=== PATIENT | male | born 1970 | race Caucasian/White ===

== ENCOUNTER 2022-09-07 10:29 | Outpatient (CLI) | payer OTHER, SELFPAY ==
--- NOTE | ~2022-09-07 | XR_ITS ---
Right Hand Technique: PA, oblique, and lateral views were obtained. Clinical History: Pain and swelling Findings: No acute fracture or dislocation is seen. Osseous alignment is anatomic. Joint spaces are p reserved. Soft tissues are unremarkable. Impression: Unremarkable right hand. Reviewed, dictated and finalized at location . Impression: Unremarkable right hand.
--- NOTE | ~2022-09-07 | XR_ITS ---
Left Hand Technique: PA, oblique, and lateral views were obtained. Clinical History: Pain and swelling Findings: No acute fracture or dislocation is seen. Osseous alignment is anatomic. Joint spaces are p reserved. Soft tissues are unremarkable. Impression: Unremarkable left hand. Reviewed, dictated and finalized at location . Impression: Unremarkable left hand.
--- NOTE | ~2022-09-07 | XR_ITS ---
Left Shoulder Technique: AP and axillary views were obtained. Clinical History: Pain Findings: No fracture or dislocation is seen. Osseous alignment is anatomic. The glenohumeral and acr omioclavicular joint spaces are preserved. Soft tissues are unremarkable. Impression: Unremarkable left shoulder radiographs. Reviewed, dictated and finalized at [facility]. Impression: Unremarkable left shoulder radiographs.
== END 2022-09-07 10:30 ==
PROVIDERS: PCP Family Medicine; Visit Provider Family Medicine
DX: M25.512 Pain in left shoulder (principal); M79.642 Pain in left hand
CPT/HCPCS: 73030; 73130

== ENCOUNTER 2023-02-17 12:43 | Outpatient (CLI) | payer BC, SELFPAY ==
--- NOTE | ~2023-02-17 | CT_ITS ---
Clinical Indication: Abnormal weight loss CT Scan of the Chest, Abdomen, and Pelvis with Contrast: Technique: Contiguous sections were acquired throughout the chest, abdomen, and pelvis after intraven ous administration of 100 cc of Omnipaque 350. Dose reduction technique was used on this scan by jana gallegosing automated exposure control and iterative reconstruction technique. The dose-length product (DL P) was 824.13 mGy-cm. Findings: There is no evidence of any significant mediastinal, hilar or axillary lymphadenopathy. Small calcifi ed hilar lymph nodes are noted. The mediastinal soft tissues and vascular structures appear normal. There is no evidence of pleural or pericardial effusion. There is a semisolid nodule at the left lung apex (axial image 30-31). Calcified granulomas are noted . The liver, spleen, pancreas, gallbladder, left adrenal gland, and kidneys are within normal limits. T here is chronic calcification within the right adrenal gland. No evidence of aortic aneurysm. No lym phadenopathy. 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 No bowel obstruction or bowel wall thickening evid ent. Urinary bladder is unremarkable. Prostate gland is markedly enlarged. No ascites. 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 No bowel obstruction or bowel wall thickening. Markedly enlarged prostate gland. Small semisolid groundglass nodule the left lung apex. According to Fleischner Society criteria, ramonita mmend one-year follow-up CT. Reviewed, dictated and finalized at [facility]. 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 No bowel obstruction or bowel wall th ickening. Markedly enlarged prostate gland. Small semisolid groundglass nodule the left lung apex. According to Fleischner Society criteria, recommend one-year follow-up CT.
== END 2023-02-17 12:44 ==
PROVIDERS: PCP Family Medicine; Visit Provider Family Medicine
DX: R63.4 Abnormal weight loss (principal); R91.8 Other nonspecific abnormal finding of lung field
CPT/HCPCS: 71260; 74177; Q9967

== ENCOUNTER 2023-04-30 08:00 | Outpatient (CLI) | payer BC, SELFPAY ==
--- NOTE | ~2023-04-30 | MR_ITS ---
EXAMINATION: MR cervical spine wo con DATE: 04/30/2023 08:40 INDICATION: Degeneration of cervical intervertebral disc. Neck pain. TECHNIQUE: Magnetic resonance imaging (MRI) of the cervical spine was performed without intravenous c ontrast. COMPARISON: None FINDINGS: There is 5 degrees levocurvature of cervicothoracic spine. There is mild kyphosis of cervic al spine. Vertebral body heights are normal. There is mildly decreased disc height at C3-C4, moderate ly decreased disc height at C5-C6, and severely decreased disc height at C6-C7. The spinal cord signa l intensity is normal. The following disc levels are specifically discussed: C2-C3: The disc does not extend beyond the endplate margin. There is mild left uncovertebral joint os teoarthritis. There is moderate and severe left facet joint osteoarthritis. There is mild left neural foraminal stenosis. There is no central canal stenosis. C3-C4: The disc does not extend beyond the endplate margin. There is mild bilateral uncovertebral nicolasa nt osteoarthritis. There is moderate right and severe left facet joint osteoarthritis. There is mild right and moderate left neural foraminal stenosis. There is no central canal stenosis. C4-C5: The disc does not extend beyond the endplate margin. There is mild bilateral mild right and se emil left uncovertebral joint osteoarthritis. There is moderate left facet joint osteoarthritis. Ther e is no neural foraminal stenosis. There is no central canal stenosis. C5-C6: The disc is bulging. There is severe bilateral uncovertebral joint osteoarthritis. There is mi ld right facet joint osteoarthritis. There is moderate bilateral neural foraminal stenosis. There is mild central canal stenosis. C6-C7: The disc is bulging. There is severe bilateral uncovertebral joint osteoarthritis. There is se emil right and moderate left facet joint osteoarthritis. There is severe bilateral neural foraminal s tenosis. There is mild central canal stenosis. C7-T1: The disc does not extend beyond the endplate margin. There is no uncovertebral joint osteoarth ritis. There is severe right and mild left facet joint osteoarthritis. There is mild right neural for aminal stenosis. There is no central canal stenosis. IMPRESSION: 1. Severe cervical spondylosis. Reviewed, dictated and finalized at location A. NG INSTRUCTOR
== END 2023-04-30 08:01 | disposition home or self-care (01) ==
LOC: ANHIMG 08:06
PROVIDERS: PCP Family Medicine; Visit Provider Family Medicine
DX: M43.02 Spondylolysis, cervical region (principal)
CPT/HCPCS: 72141

== ENCOUNTER 2023-08-30 17:04 | Emergency (ER) | payer MEDICAID, SELFPAY ==
[2023-08-30 17:11] VITALS: BP 121/67; PULSE 90; RESP 16; TEMP 36.9; O2SAT 98
--- NOTE | 2023-08-30 17:33 | ED.SKABFB ---
HPI - Skin/Abscess/Foreign Bdy General Chief complaint: Skin/Abscess/Foreign Body Stated complaint: Poison [place]ac Time Seen by Provider: 08/30/23 17:26 Source: patient and RN notes reviewed Mode of arrival: ambulatory Limitations: no limitations History of Present Illness HPI narrative: Patient presents today complaining of poison sumac to his bilateral forearms, legs, hands. States the rash on his right upper arm continues to worsen. Symptoms began 3-4 days ago. He tried to treat with Tecnu without relief. Related Data Allergies Allergy/AdvReac Type Severity Reaction Status Date / Time No Known Allergies Allergy Unknown Verified 08/30/23 17:21 Review of Systems Review of Systems: CONSTITUTIONAL: Denies body aches, fever, chills, or sweats. EYES: Denies visual changes, redness, or discharge. ENT: Denies rhinorrhea, congestion, sore throat, or otalgia. CARDIOVASCULAR: Denies chest pain, palpitations, or edema. RESPIRATORY: Denies cough or dyspnea. GASTROINTESTINAL: Denies abdominal pain, nausea, vomiting, or diarrhea. GENITOURINARY: Denies dysuria or hematuria. SKIN: + pruritic rash MUSCULOSKELETAL: Denies back pain, joint pain, or myalgia. NEUROLOGIC: Denies headache, numbness, tingling, or weakness. PSYCH: Denies depression or anxiety. PMFSH Comments At time of signature, I have reviewed and agree with nursing past medical, surgical, social and family history unless otherwise noted. Please see nursing chart for further information. There is no relevant family history pertinent to the presenting complaint Exam Narrative: GENERAL: Well-appearing, well-nourished, and in no acute distress. HEAD: Normocephalic, atraumatic. EYES: EOMI. No redness or drainage. Conjunctivae normal. ENT: Mucous membranes pink and moist. NECK: Normal AROM. CHEST: No respiratory distress. EXTREMITIES: Normal range of motion. No edema. SKIN: Warm, dry. Capillary refill normal. Normal skin turgor. Scattered papular and vesicular rash to the bilateral upper and lower arms bilateral legs. Patient has 1 large scab to the lateral right lower leg without signs of infection. NEURO: No focal deficits. Alert and oriented x3. Gait steady. PSYCH: Normal affect. No signs of depression or anxiety. Course Course Level of Care: Express Care Visit Vital Signs Vital signs: Vital Signs Temperature 98.5 F 08/30/23 17:11 Pulse Rate 90 08/30/23 17:11 Respiratory Rate 16 08/30/23 17:11 Blood Pressure 121/67 08/30/23 17:11 Pulse Oximetry 98 08/30/23 17:11 Oxygen Delivery Room Air 08/30/23 17:11 Temperature 98.5 F 08/30/23 17:11 Pulse Rate 90 08/30/23 17:11 Respiratory Rate 16 08/30/23 17:11 Blood Pressure 121/67 08/30/23 17:11 Pulse Oximetry 98 08/30/23 17:11 Oxygen Delivery Room Air 08/30/23 17:11 Reviewed MDM - Skin/Abscess/Foreign Bdy MDM Narrative Medical decision making narrative: Rash is consistent with contact dermatitis. Will treat with course of prednisone. Anticipatory guidance given. Differential Diagnosis Differential diagnosis: Likely abscess of skin or subcutaneous tissue, dermatophytosis, cellulitis, eczema, insect bites, impetigo and contact dermatitis Critical Care Time Critical Care Time Critical Care Time: No Discharge Plan Discharge Clinical Impression: Contact dermatitis Qualifiers: Contact dermatitis type: irritant Contact dermatitis trigger: unspecified trigger Qualified Code(s): L24.9 - Irritant contact dermatitis, unspecified cause Patient Disposition: Home, Self-Care Condition: Stable Instructions: Poison Ro (ED) Additional Instructions: Please take the prednisone as prescribed. For itching, use an antihistamine such as Zyrtec, Claritin, or Emy. If you notice any redness, pain, swelling, please follow-up with your PCP for further evaluation. Your blood pressure was elevated above 120/80 today at Urgent Care. This puts you above the t
== END 2023-08-30 17:40 | disposition home or self-care (01) ==
PROVIDERS: Emergency Provider Nurse Practitioner; PCP Family Medicine
DX: L24.9 Irritant contact dermatitis, unspecified cause (principal)
CPT/HCPCS: 99213; G0463

== ENCOUNTER 2024-03-09 10:59 | Outpatient (CLI) | payer OTHER, SELFPAY ==
--- NOTE | ~2024-03-09 | US_ITS ---
EXAMINATION: US soft tissue UE LT DATE: 03/09/2024 12:28 INDICATION: Left forearm lump. TECHNIQUE: Multiple grayscale and Doppler ultrasound images of the left forearm were obtained. COMPARISON: None FINDINGS: There is a 1.2 x 0.3 x 1.0 cm hyperechoic and isoechoic subcutaneous mass in the patient's area of concern in left forearm. IMPRESSION: 1. Small subcutaneous mass in the left forearm, which may be inflammation or a sebaceous cyst. Reviewed, dictated and finalized at location A. IGN STUDENT ADVISER TEACHER
--- NOTE | ~2024-03-09 | MR_ITS ---
EXAMINATION: MR cervical spine wo con DATE: 03/09/2024 13:05 INDICATION: Spinal stenosis in cervical region. TECHNIQUE: Magnetic resonance imaging (MRI) of the cervical spine was performed without intravenous c ontrast. COMPARISON: Cervical spine MRI 04/30/2023 FINDINGS: There is 11 degrees levoscoliosis of cervicothoracic spine. There is kyphosis of cervical s pine. Vertebral body heights are normal. There is mildly decreased disc height at C2-C3 and C3-C4, mo derately decreased disc height at C5-C6, and severely decreased disc height at C6-C7. The spinal cord signal intensity is normal. The following disc levels are specifically discussed: C2-C3: The disc does not extend beyond the endplate margin. There is mild left uncovertebral joint os teoarthritis. There is mild bilateral facet joint osteoarthritis. There is mild left neural foraminal stenosis. There is no central canal stenosis. C3-C4: The disc is bulging. There is moderate bilateral uncovertebral joint osteoarthritis. There is moderate right and severe left facet joint osteoarthritis. There is mild bilateral neural foraminal s tenosis. There is mild central canal stenosis. C4-C5: The disc does not extend beyond the endplate margin. There is mild left uncovertebral joint os teoarthritis. There is mild right and severe left facet joint osteoarthritis. There is moderate left neural foraminal stenosis. There is no central canal stenosis. C5-C6: The disc is bulging. There is severe bilateral uncovertebral joint osteoarthritis. There is mo derate right and mild left facet joint osteoarthritis. There is mild bilateral neural foraminal steno sis. There is mild central canal stenosis. C6-C7: The disc is bulging. There is severe bilateral uncovertebral joint osteoarthritis. There is se emil right and mild left facet joint osteoarthritis. There is moderate bilateral neural foraminal heather nosis. There is mild central canal stenosis. C7-T1: The disc does not extend beyond the endplate margin. There is no uncovertebral joint osteoarth ritis. There is severe right facet joint osteoarthritis. There is mild right neural foraminal stenosi s. There is no central canal stenosis. IMPRESSION: 1. Severe cervical spondylosis, stable from 04/30/2023. Reviewed, dictated and finalized at location A. B MANAGER
--- OUTSIDE RECORDS SUMMARY | 2024-03-16 15:20 | XMS_ITS | Clinical Summary ---
Author Organization [facility] [address] [place] [address] Care Team Providers Care Housefellow Name Role Phone Helga Brewster APRN-TRIM MECHANIC Primary Care Provider Source Comments [facility] [address],non-owned Affiliates and Associated Physician Practices is amultiple site organization consisting of ambulatory clinics and hospital sitesin [place], [place], [place] and [place]. This disclosure is being madepursuant to the Care Everywhere program and may not contain all information available regarding this patient. Last updated 17.[facility] [address] Allergies No known active allergies Medications * Be aware that medications may not be up to date on this document. Alwaysverify current medications with the patient. Medication Sig Dispensed Refills Start Date End Date Status pantoprazole EC (PROTONIX) 40 MG tablet Take 1 (one) tablet by mouth once daily 30 tablet 11/28/2020 Active cyclobenzaprine (FLEXERIL) 10 MG tablet Take 1 (one) tablet by mouth 3 times daily as needed for Muscle Spasms (pain) 90 tablet 12/30/2020 Active lidocaine (Lidoderm) 5 % patch Apply 1 (one) patch to skin once daily 15 patch 5 01/18/2022 Active acetaminophen (Tylenol) 500 MG tablet Take 2 (two) tablets by mouth every 8 hours as needed for Pain Maximum allowable Acetaminophen amount = 4 Grams (4000 mg) / 24 hours. 30 tablet 01/18/2022 Active gabapentin (Neurontin) 100 MG capsule Take 1 (one) capsule by mouth 3 times daily 30 capsule 5 01/18/2022 Active baclofen (Lioresal) 10 MG tablet Take 1 (one) tablet by mouth 3 times daily May cause drowsiness. 15 tablet 01/18/2022 Active HYDROcodone-aceta minophen (Van) 5-325 MG tablet Take 1 tablet every day by oral route at bedtime. 11/02/2023 Active penicillin v potassium (Veetids) 500 MG tablet Take 1 tablet every 6 hours by oral route for 10 days. 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 Encounters Date Type Department Care Team Description 02/08/2024 1:41 PM [facility] - 02/08/2024 11:59 PM [facility] Hospital Encounter [facility] EEG/EMG [address] [place] [address] Sergio Park MD Huser, Madison Cisneros, Discharge Disposition: Home or Self Care from Last 3 Months Social History Tobacco Use Types Packs/Day Years Used Date Smoking Tobacco: Every Day Cigarettes 1 20 Smokeless Tobacco: Never Tobacco Cessation:Ready to Q uit: Not Asked; Counseling Given: Not Answered Alcohol Use Standard Drinks/Week Comments Never 0 (1 standard drink = 0.6 oz pur e alcohol) Sex and Gender Information Value Date Recorded Sex Assigned at Not on file Gender Identity Not on file Sexual Orientation Not on file Last Filed Vital Signs Vital Sign Reading Time Taken Comments Blood Pressure 136/82 01/18/2022 12:15 PM CDT Pulse 81 01/18/2022 12:15 PM CDT Temperature 36.7 ??C (98.1 ??F) 01/18/2022 12:15 PM C DT Respiratory Rate 12 01/18/2022 12:15 PM CDT Oxygen Saturation 100% 01/18/2022 12:15 PM CDT Inhaled Oxygen Concentration - - Weight 80.7 kg (178 lb) 11/06/2023 9:01 AM CDT Height 182.9 cm (6') 11/06/2023 9:01 AM CDT Body Mass Index 24.14 11/06/2023 9:01 AM CDT Plan of Treatment Health Maintenance Due Date Last Done Comments COLOGUARD (AGES 45-75) - COL ON CA SCREENING 1972 COLON MONITORING 1972 COLONOSCOPY - COLON CA SCREENING 1972 CT COLONOGRAPHY - COLON CA SCREENING 1972 Colorectal Cancer Screening 1972 FIT - COLON CA SCREENING 1972 FLEX SIG - COLON CA SCREENING 1972 PNEUMOCOCCAL VACCINE (1 of 2 - PCV) 02/03/1978 HIV SCREENING 02/03/1987 HEPATITIS C SCREENING 01/30/1990 DTAP/TDAP/TD VACCINES (1 - Tdap) 02/03/1991 HEPATITIS B VACCINE (1 of 3 - 19+ 3-dose series) 02/03/1991 LUNG CANCER SCREENING 02/03/2022 ZOSTER VACCINE (1 of 2) 02/03/2022 LIPID TESTING 04/19/2022 04/19/2017 DEPRESSION SCREENING 03/20/2023 COVID-19 VACCINE (1 - 2023-2 5 season) 2023 INFLUENZA VACCINE (#1) 2023 HIB VACCINE Aged Out No longer eligi ble based on patient's age to complete this topic HPV VACCINE Aged Out No longer eligi ble based on patient's age to complete this topic MENINGOCOCCAL VACCINE Aged Out No jurgen parker eligible based on patient's age to complete this topic Goals Goal Patient Goal Type Associated Problems Recent Progress Patient-Stated? Author Medication Management General On track( 021 8:26 AM CDT) No Kristin Cedeno, RN Note: Expected end date: ongoing Interventions: Take all medications as prescribed Let your doctor know right away about any changes in your medications Make sure to request a refill of your medication at least one week prior to your last dose Procedures Procedure Name Priority Date/Time Associated Diagnosis Comments LIPID PROFILE Routine 04/19/2017 7:54 AM [facility] from Last 3 Months or Most Recently Relevant to Health Maintenance Results * (ABNORMAL) LIPID PROFILE (04/19/2017 7:54 AM [facility]) Cholesterol Total 167 <200 mg/dL [facility] HDL 32(L) >40 mg/dL [facility] Comment: ATP III Classification of HDL Cholesterol: ? <40 mg/dL: ??Considered a major risk factor. ? >60 mg/dL: ??Considered a negative risk factor. ? LDL Calculated 102(H) <100 mg/dL [facility] Comment: ATP III Classification of LDL Cholesterol: ?<100 mg/dL: ??Optimal ? 100 - 129 mg/dL: ??Near Optimal/Above Optimal ? 130 - 159 mg/dL: ??Borderline High ? 160 - 189 mg/dL: ??High ?>190 mg/dL: ??Very High ? Triglycerides 166(H) <150 mg/dL [facility] Comment: ATP III Classification of Triglycerides: ?<150 mg/dL: ??Normal ? 150 - 199 mg/dL: ??Borderline High ? 200 - 400 mg/dL: ??High ?>500 mg/dL: ??Very High Blood specimen (specimen) BLOOD SPECIMEN / Unknown 04/19/2017 7:54 AM [facility] 04/19/2017 8:00 AM [facility] Elise Hennessy MD LAB - CHEMISTRY [place] Performing Organization Address City/State/[facility] Co de Phone Number [facility] [address] [phone] from Last 3 Months or Most Recently Relevant to Health Maintenance Advance Directives * Full Code (Latest Code Status on File) Date Activated Date Inactivated Comments 11/27/2020 1:33 AM 11/29/2020 12:56 PM Care Teams Housefellow Relationship Specialty Start Date End Date Helga Brewster, STEAM LOCOMOTIVE FIRER/FIREMAN-TRIM MECHANIC [address] [place] [id number] PCP - General Family Medicine 11/06/23
--- OUTSIDE RECORDS SUMMARY | 2024-03-16 15:20 | XMS_ITS | Patient Health Summary ---
Author Organization [facility] Address [address] [place] [address] Care Team Providers Care Prompt Care Rn Name Role Phone Helga Brewster APRN-PROCEDURES ANALYST Primary Care Provider Note from [facility],non-owned Affiliates and Associated Physician Practices is amultiple site organization consisting of ambulatory clinics and hospital sitesin [place], [place], [place] and [place]. This disclosure is being madepursuant to the Care Everywhere program and may not contain all information available regarding this patient. Last updated 17.[facility] Allergies No known active allergies Medications * Be aware that medications may not be up to date on this document. Alwaysverify current medications with the patient. * pantoprazole EC (PROTONIX) 40 MG tablet(Started 11/28/2020) Take 1 (one) tablet by mouth once daily * cyclobenzaprine (FLEXERIL) 10 MG tablet(Started 12/30/2020) Take 1 (one) tablet by mouth 3 times daily as needed for Muscle Spasms (pain) * lidocaine (Lidoderm) 5 % patch(Started 01/18/2022) Apply 1 (one) patch to skin once daily 5 refills by 01/18/2023 * acetaminophen (Tylenol) 500 MG tablet(Started 01/18/2022) Take 2 (two) tablets by mouth every 8 hours as needed for Pain Maximum allowable Acetaminophen amount = 4 Grams (4000 mg) / 24 hours. * gabapentin (Neurontin) 100 MG capsule(Started 01/18/2022) Take 1 (one) capsule by mouth 3 times daily 5 refills by 01/18/2023 * baclofen (Lioresal) 10 MG tablet(Started 01/18/2022) Take 1 (one) tablet by mouth 3 times daily May cause drowsiness. * HYDROcodone-acetaminophen (Challis) 5-325 MG tablet(Started 11/02/2023) Take 1 tablet every day by oral route at bedtime. * penicillin v potassium (Veetids) 500 MG tablet(Started 11/02/2023) Take 1 tablet every 6 hours by oral route for 10 days. 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 Social History Tobacco Use Types Packs/Day Years [...] Mass Index 24.14 11/06/2023 9:01 AM CDT Procedures * XR SPINE ENTIRE 2 OR 3VW(Performed 11/06/2023) Performed for Other back pain, unspecified chronicity * CT CERVICAL SPINE WO CONTRAST(Performed 01/18/2022) Performed for Neck pain * CT HEAD WO CONTRAST(Performed 01/18/2022) Performed for Neck pain * PHOSPHORUS BLOOD(Performed 11/29/2020) * MAGNESIUM BLOOD(Performed 11/29/2020) * BASIC METABOLIC PANEL (CALCIUM TOTAL)(Performed 11/29/2020) * CBC W AUTO DIFFERENTIAL(Performed 11/29/2020) * CREATININE URINE RANDOM(Performed 11/28/2020) * POTASSIUM URINE RANDOM(Performed 11/28/2020) * CREATINE URINE(Performed 11/28/2020) * SODIUM URINE RANDOM(Performed 11/28/2020) * CARDIAC EKG ORDER(Performed 11/28/2020) * BASIC METABOLIC PANEL (CALCIUM TOTAL)(Performed 11/28/2020) * PHOSPHORUS BLOOD(Performed 11/28/2020) * MAGNESIUM BLOOD(Performed 11/28/2020) * BASIC METABOLIC PANEL (CALCIUM TOTAL)(Performed 11/28/2020) * CBC W AUTO DIFFERENTIAL(Performed 11/28/2020) * HELICOBACTER PYLORI ANTIGEN FECES(Performed 11/27/2020) * FL SMALL BOWEL SERIES(Performed 11/27/2020) Performed for LUQ pain * LACTIC ACID BLOOD(Performed 11/27/2020) * PHOSPHORUS BLOOD(Performed 11/27/2020) * MAGNESIUM BLOOD(Performed 11/27/2020) * BASIC METABOLIC PANEL (CALCIUM TOTAL)(Performed 11/27/2020) * CBC W AUTO DIFFERENTIAL(Performed 11/27/2020) * SARS-COV-2 (COVID-19)+INFLU A+B PCR RAPID(Performed 11/27/2020) * CT ABDOMEN PELVIS W CONTRAST(Performed 11/26/2020) Performed for LUQ pain * EKG 12-LEAD(Performed 11/26/2020) Performed for LUQ pain * TROPONIN I(Performed 11/26/2020) * LACTIC ACID BLOOD(Performed 11/26/2020) * URINALYSIS W/MICROSCOPIC NO CULTURE(Performed 11/26/2020) * LIPASE BLOOD(Performed 11/26/2020) * COMPREHENSIVE METABOLIC PANEL(Performed 11/26/2020) * CBC W AUTO DIFFERENTIAL(Performed 11/26/2020) * HEMOGLOBIN A1C(Performed 04/19/2017) * TROPONIN I(Performed 04/19/2017) * LIPID PROFILE(Performed 04/19/2017) * COMPREHENSIVE METABOLIC PANEL(Performed 04/19/2017) * PT-INR [facility](Performed 04/19/2017) * PTT [facility](Performed 04/19/2017) * TROPONIN I(Performed 04/19/2017) * CT ANGIO CHEST PULM EMBOLISM(Performed 04/19/2017) * XR CHEST 1VW PORTABLE(Performed 04/19/2017) * CBC W AUTO DIFFERENTIAL(Performed 04/19/2017) * TROPONIN I(Performed 04/19/2017) * BASIC METABOLIC PANEL (CALCIUM TOTAL)(Performed 04/19/2017) * CBC W AUTO DIFFERENTIAL(Performed 04/19/2017) * ECHO STRESS COLOR FLOW AND DOPPLER(Performed 04/19/2017) * ECHO STRESS W EXERCISE(Performed 04/19/2017) * EKG 12-LEAD(Performed 04/19/2017) * EKG 12-LEAD(Performed 04/19/2017) * EKG 12-LEAD(Performed 04/19/2017) * LAB MICROBIOLOGY - HPF HISTORICAL(Performed 11/09/2008) * LAB MICROBIOLOGY - HPF HISTORICAL(Performed 11/08/2008) Results * XR Spine Entire 2 or 3Vw (11/06/2023 8:58 AM CDT) Anatomical Region Laterality Modality Spine Radiographic Elisha ging 11/06/2023 11:3 5 AM CDT Narrative 11/06/2023 11:35 AM CDT PROCEDURE: ??XR SPINE ENTIRE 2 OR 3VW DATE/TIME OF EXAM: ??11/06/2023 8:59 AM CLINICAL INFORMATION: None relevant/not provided if blank. Indication: M54.89: Other dorsalgia Additional History: COMPARISON: None. TECHNIQUE: AP and lateral standing views of the spine are submitted. Findings/impression: No significant scoliosis is noted. Mild degenerative changes are noted in the lower cervical and lower lumbar spine. The SI joints are intact. No suspicious osseous lesions or fractures are noted. > Interpreting Provider: Shaheen Mensah DO on 11/06/2023 11:35 AM Procedure Note Shaheen Mensah DO - 11/06/2023 PROCEDURE: XR SPINE ENTIRE 2 OR 3VW DATE/TIME OF EXAM: 11/06/2023 8:59 AM CLINICAL INFORMATION: None relevant/not provided if blank. Indication: M54.89: Other dorsalgia Additional History: COMPARISON: None. TECHNIQUE: AP and lateral standing views of the spine are submitted. Findings/impression: No significant scoliosis is noted. Milddegenerative changes are noted in the lower cervical and lower lumbar spine. The SI joints are intact. No suspicious osseous lesions or fractures are noted. > Interpreting Provider: Shaheen Mensah DO on 11/06/2023 11:35 AM Sergio Park MD DIAGNOSTIC IMAGING O RDERABLES * CT CERVICAL SPINE NON CONTRAST - suspected c-spine fracture (01/18/2022 2:13 PM CDT) Anatomical Region Laterality Modality Spine Computed Tomogra phy 01/18/2022 2:21 PM CDT Impressions 01/18/2022 3:50 PM CDT IMPRESSION: 1.No acute intracranial hemorrhage, midline shift, or significant mass effect. 2.No evidence of acute fracture in the cervical spine. Report dictated by Jon Terry MD, MD (campus president). I, Melodie Hernández MD have personally reviewed and interpreted this examination/study. > Interpreting Provider: Melodie Hernández MD on 01/18/2022 3:50 PM Narrative 01/18/2022 3:50 PM CDT PROCEDURE: ??CT HEAD WO CONTRAST, CT CERVICAL SPINE WO CONTRAST, DATE/TIME OF EXAM: ??01/18/2022 2:14 PM, LOCATION ??[facility] INDICATION: M54.2: Neck pain ADDITIONAL CLINICAL INFORMATION: Ordering Provider Reason For Exam: ??PAIN EXAMINATION: 1.Computed tomography (CT) of the head without contrast 2.CT of the cervical spine without contrast TECHNIQUE: CT of the head and cervical spine was performed without contrast according to standard protocol. CT dose reduction technique was used, including Automated Exposure Control. COMPARISON: None. FINDINGS: Head: No acute intra- or extra-axial fluid collections are identified. The ventricles are of normal size, shape, and morphology. The basilar cisterns are patent. No mass effect or midline shift is seen. The calles-white matter differentiation is normal. Periventricular white matter hypoattenuation is indicative of chronic small vessel ischemic disease. There is vascular calcification of the carotid siphons. No acute calvarial fracture is identified. The orbits appear normal. There is mild paranasal sinus disease. The nasal septum is deviated to the left with a septal spur in contact with the left inferior turbinate. The mastoid air cells are grossly clear. No soft tissue abnormality is identified. Cervical spine: There is gentle cervical kyphosis. There is mild levocurvature of the cervicothoracic junction. Vertebral bodies are normal in height without evidence of acute fracture. Other than middle atlantoaxial joint osteoarthritis, the craniocervical junction appears normal. There is mild degenerative disc disease. Mild central canal stenosis is seen at multiple levels due to diffuse disc bulge. There are varying degrees of mild facet osteoarthritis. There are varying degrees of advanced uncovertebral joint osteoarthritis with the same degree of neural foraminal stenosis at these levels. Scattered small cervical lymph nodes are nonspecific and likely reactive. There is paraseptal emphysema in the lung apices. There are scattered dental caries and periapical lucencies. Procedure Note Melodie Hernández MD - 01/18/2022 PROCEDURE: CT HEAD WO CONTRAST, CT CERVICAL SPINE WO CONTRAST,DATE/TIME OF EXAM: 01/18/2022 2:14 PM, LOCATION [facility] INDICATION: M54.2: Neck pain ADDITIONAL CLINICAL INFORMATION: Ordering Provider Reason For Exam: PAIN EXAMINATION: 1.Computed tomography (CT) of the head without contrast 2.CT of the cervical spine without contrast TECHNIQUE: CT of the head and cervical spine was performed withoutcontrast according to standard protocol. CT dose reduction technique was used, including Automated Exposure Control. COMPARISON: None. FINDINGS: Head: No acute intra- or extra-axial fluid collections are identified. The ventricles are of normal size, shape, and morphology. The basilarcisterns are patent. No mass effect or midline shift is seen. The calles-whitematter differentiation is normal. Periventricular white matter hypoattenuationis indicative of chronic small vessel ischemic disease. There is vascular calcification of the carotid siphons. No acute calvarial fracture is identified. The orbits appear normal. There is mild paranasal sinus disease. The nasal septum is deviated to the left with a septal spur in contact with the left inferior turbinate. The mastoid air cells aregrossly clear. No soft tissue abnormality is identified. Cervical spine: There is gentle cervical kyphosis. There is mild levocurvature of the cervicothoracic junction. Vertebral bodies are normal in height without evidence of acute fracture. Other than middle atlantoaxial joint osteoarthritis, the craniocervical junction appears normal. There ismild degenerative disc disease. Mild central canal stenosis is seen atmultiple levels due to diffuse disc bulge. There are varying degrees of mildfacet osteoarthritis. There are varying degrees of advanced uncovertebraljoint osteoarthritis with the same degree of neural foraminal stenosis atthese levels. Scattered small cervical lymph nodes are nonspecific and likely reactive. There is paraseptal emphysema in the lung apices. There are scattered dental caries and periapical lucencies. IMPRESSION: 1.No acute intracranial hemorrhage, midline shift, or significant mass effect. 2.No evidence of acute fracture in the cervical spine. Report dictated by Jon Terry MD, MD (campus president). Melodie Matias MD have personally reviewed and interpretedthis examination/study. > Interpreting Provider: Melodie Hernández MD on 01/18/2022 3:50 PM Efraín Mooney MD CT ORDERABLES * CT HEAD NON CONTRAST - suspected intracranial hemorrhage (01/18/2022 2:13 PM CDT) Anatomical Region Laterality Modality Head Computed Tomogra phy 01/18/2022 2:21 PM CDT Impressions 01/18/2022 3:50 PM CDT IMPRESSION: 1.No acute intracranial hemorrhage, midline shift, or significant mass effect. 2.No evidence of acute fracture in the cervical spine. Report dictated by Jon Terry MD, MD (campus president). Melodie Matias MD have personally reviewed and interpreted this examination/study. > Interpreting Provider: Melodie Hernández MD on 01/18/2022 3:50 PM Narrative 01/18/2022 3:50 PM CDT PROCEDURE: ??CT HEAD WO CONTRAST, CT CERVICAL SPINE WO CONTRAST, DATE/TIME OF EXAM: ??01/18/2022 2:14 PM, LOCATION ??[facility] INDICATION: M54.2: Neck pain ADDITIONAL CLINICAL INFORMATION: Ordering Provider Reason For Exam: ??PAIN EXAMINATION: 1.Computed tomography (CT) of the head without contrast 2.CT of the cervical spine without contrast TECHNIQUE: CT of the head and cervical spine was performed without contrast according to standard protocol. CT dose reduction technique was used, including Automated Exposure Control. COMPARISON: None. FINDINGS: Head: No acute intra- or extra-axial fluid collections are identified. The ventricles are of normal size, shape, and morphology. The basilar cisterns are patent. No mass effect or midline shift is seen. The calles-white matter differentiation is normal. Periventricular white matter hypoattenuation is indicative of chronic small vessel ischemic disease. There is vascular calcification of the carotid siphons. No acute calvarial fracture is identified. The orbits appear normal. There is mild paranasal sinus disease. The nasal septum is deviated to the left with a septal spur in contact with the left inferior turbinate. The mastoid air cells are grossly clear. No soft tissue abnormality is identified. Cervical spine: There is gentle cervical kyphosis. There is mild levocurvature of the cervicothoracic junction. Vertebral bodies are normal in height without evidence of acute fracture. Other than middle atlantoaxial joint osteoarthritis, the craniocervical junction appears normal. There is mild degenerative disc disease. Mild central canal stenosis is seen at multiple levels due to diffuse disc bulge. There are varying degrees of mild facet osteoarthritis. There are varying degrees of advanced uncovertebral joint osteoarthritis with the same degree of neural foraminal stenosis at these levels. Scattered small cervical lymph nodes are nonspecific and likely reactive. There is paraseptal emphysema in the lung apices. There are scattered dental caries and periapical lucencies. Procedure Note Melodie Hernández MD - 01/18/2022 PROCEDURE: CT HEAD WO CONTRAST, CT CERVICAL SPINE WO CONTRAST,DATE/TIME OF EXAM: 01/18/2022 2:14 PM, LOCATION [facility] INDICATION: M54.2: Neck pain ADDITIONAL CLINICAL INFORMATION: Ordering Provider Reason For Exam: PAIN EXAMINATION: 1.Computed tomography (CT) of the head without contrast 2.CT of the cervical spine without contrast TECHNIQUE: CT of the head and cervical spine was performed withoutcontrast according to standard protocol. CT dose reduction technique was used, including Automated Exposure Control. COMPARISON: None. FINDINGS: Head: No acute intra- or extra-axial fluid collections are identified. The ventricles are of normal size, shape, and morphology. The basilarcisterns are patent. No mass effect or midline shift is seen. The calles-whitematter differentiation is normal. Periventricular white matter hypoattenuationis indicative of chronic small vessel ischemic disease. There is vascular calcification of the carotid siphons. No acute calvarial fracture is identified. The orbits appear normal. There is mild paranasal sinus disease. The nasal septum is deviated to the left with a septal spur in contact with the left inferior turbinate. The mastoid air cells aregrossly clear. No soft tissue abnormality is identified. Cervical spine: There is gentle cervical kyphosis. There is mild levocurvature of the cervicothoracic junction. Vertebral bodies are normal in height without evidence of acute fracture. Other than middle atlantoaxial joint osteoarthritis, the craniocervical junction appears normal. There ismild degenerative disc disease. Mild central canal stenosis is seen atmultiple levels due to diffuse disc bulge. There are varying degrees of mildfacet osteoarthritis. There are varying degrees of advanced uncovertebraljoint osteoarthritis with the same degree of neural foraminal stenosis atthese levels. Scattered small cervical lymph nodes are nonspecific and likely reactive. There is paraseptal emphysema in the lung apices. There are scattered dental caries and periapical lucencies. IMPRESSION: 1.No acute intracranial hemorrhage, midline shift, or significant mass effect. 2.No evidence of acute fracture in the cervical spine. Report dictated by Jon Terry MD, MD (campus president). I, Melodie Hernández MD have personally reviewed and interpretedthis examination/study. > Interpreting Provider: Melodie Hernández MD on 01/18/2022 3:50 PM Efraín Mooney MD CT ORDERABLES * (ABNORMAL) CBC W AUTO DIFFERENTIAL (11/29/2020 1:39 AM CDT) Only the most recent of6 resultswithin the time period is included. WBC 7.9 3.5 - 10.5 10? 3 /uL 11/29/2020 3:51 AM [facility] RBC 5.34 4.30 - 5.70 10? 6 /uL 11/29/2020 3:51 AM [facility] Hemoglobin 15.9 12.0 - 17.6 g/dL 11/29/2020 3:51 AM [facility] Hematocrit 47.1 35.2 - 51.7 % 11/29/2020 3:51 AM [facility] MCV 88.2 80.7 - 98.3 fL 11/29/2020 3:51 AM [facility] MCH 29.8 26.7 - 34.0 pg 11/29/2020 3:51 AM [facility] MCHC 33.8 30.8 - 35.9 g/dL 11/29/2020 3:51 AM [facility] Platelet Count 256 150 - 400 10? 3 /uL 11/29/2020 3:51 AM [facility] RDW-SD 39.5 36.0 - 50.0 fL 11/29/2020 3:51 AM [facility] RDW-CV 12.1 11.2 - 14.8 % 11/29/2020 3:51 AM [facility] MPV 8.8(L) 9.4 - 12.9 fL 11/29/2020 3:51 AM [facility] nRBC Absolute 0.00 0 10? 3 /uL 11/29/2020 3:51 AM [facility] nRBC Auto 0.0 0 /100 WBC 11/29/2020 3:51 AM [facility] Neutrophils % 56.3 35.0 - 70.0 % 11/29/2020 3:51 AM [facility] Lymphocytes % 27.7 20.0 - 43.0 % 11/29/2020 3:51 AM [facility] Monocytes % 8.7 5.0 - 13.0 % 11/29/2020 3:51 AM [facility] Eosinophils % 6.1(H) 0.0 - 6.0 % 11/29/2020 3:51 AM [facility] Basophil % 0.8 0.0 - 2.0 % 11/29/2020 3:51 AM [facility] Neutrophils Absolute 4.5 1.6 - 7.0 10? 3 /uL 11/29/2020 3:51 AM [facility] Lymphocyte Absolute 2.2 1.1 - 3.9 10? 3 /uL 11/29/2020 3:51 AM [facility] Monocytes Absolute 0.69 0.26 - 1.07 10? 3 /uL 11/29/2020 3:51 AM [facility] Eosinophils Absolute 0.48(H) 0.00 - 0.47 10? 3 /uL 11/29/2020 3:51 AM [facility] Basophils Absolute 0.06 0.00 - 0.08 10? 3 /uL 11/29/2020 3:51 AM [facility] Immature Granulocytes % 0.4 0.0 - 1.0 % 11/29/2020 3:51 AM [facility] Immature Granulocytes Absolute 0.03 11/29/2020 3:51 AM [facility] Blood BLOOD SPECIMEN / Unknown Lab Venipuncture / Unknown 11/29/2020 1:39 AM CDT 11/29/2020 2:59 AM CDT Suleman Grissom MD LAB - HEMATOLOGY ORD ERABLES [facility] [address] [place] [address], [facility] [phone] * (ABNORMAL) BASIC METABOLIC PANEL (CALCIUM TOTAL) (11/29/2020 1:39 AM CDT) Only the most recent of5 resultswithin the time period is included. BUN 10 7 - 26 mg/dL 11/29/2020 3:26 AM [facility] Creatinine 1.24(H) 0.71 - 1.16 mg/dL 11/29/2020 3:26 AM [facility] Sodium 142 136 - 145 mmol/L 11/29/2020 3:26 AM [facility] Potassium 3.8 3.5 - 4.5 mmol/L 11/29/2020 3:26 AM [facility] Chloride 108(H) 98 - 107 mmol/L 11/29/2020 3:26 AM [facility] CO2 25 22 - 29 mmol/L 11/29/2020 3:26 AM [facility] Glucose 111 70 - 115 mg/dL 11/29/2020 3:26 AM [facility] Calcium 9.0 8.4 - 10.2 mg/dL 11/29/2020 3:26 AM [facility] Anion Gap 13 8 - 18 11/29/2020 3:26 AM [facility] BUN/Creatinine Ratio 8 7 - 23 11/29/2020 3:26 AM [facility] Osmolality Calculated 294 270 - 300 mOsm/kg 11/29/2020 3:26 AM [facility] eGFR by CKD-EPI 68(L) >=90 mL/min/1.7 3 m2 11/29/2020 3:26 AM [facility] Blood BLOOD SPECIMEN / Unknown Lab Venipuncture / Unknown 11/29/2020 1:39 AM CDT 11/29/2020 2:59 AM CDT Suleman Grissom MD LAB - CHEMISTRY ORDHerminio [facility] [address] [address], [place] [phone] * PHOSPHORUS BLOOD (11/29/2020 1:39 AM CDT) Only the most recent of3 resultswithin the time period is included. Phosphorus 3.5 2.8 - 5.1 mg/dL 11/29/2020 3:26 AM [facility] Blood BLOOD SPECIMEN / Unknown Lab Venipuncture / Unknown 11/29/2020 1:39 AM CDT 11/29/2020 2:59 AM CDT Suleman Grissom MD LAB - CHEMISTRY [facility] [address] [address], [place] [phone] * MAGNESIUM BLOOD (11/29/2020 1:39 AM CDT) Only the most recent of3 resultswithin the time period is included. Magnesium 2.3 1.6 - 2.6 mg/dL 11/29/2020 3:26 AM CDT [facility] Blood BLOOD SPECIMEN / Unknown Lab Venipuncture / Unknown 11/29/2020 1:39 AM CDT 11/29/2020 2:59 AM CDT Suleman Grissom MD LAB - CHEMISTRY [facility] Organization Address City/State/ZIP Co de Phone Number [facility] [address] [place] [address], [facility] [phone] * CREATINE URINE (11/28/2020 3:57 PM CDT) Creatine 24 Hour Urine Not Applicable mg/24h 12/08/2020 5:23 PM CDT [facility] ([facility]) Comment: INTERPRETIVE INFORMATION: ??Creatine Urine For random or timed specimens other than 24 hrs, the result represents the total milligrams of creatine excreted during the collection period. Reference ranges for creatine have been established for random urine collections, in mmol/mol creatinine. Access complete set of age- and/or gender-specific reference intervals for this test in the [facility] Laboratory Test Directory ([email or web address]). Performed by [facility], [address] [place] [id number] [email or web address], Mary Engle MD, Lab. Director Collection Time Hours Random hr 12/08/2020 5:23 PM CDT [facility] ([facility]) Volume 24 Hour Urine Random mL 12/08/2020 5:23 PM CDT [facility] ([facility]) Creatinine Urine 1346.2 umol/L 12/09/19 5:23 PM CDT [facility] ([facility]) Creatine Urine 25 10 - 370 mmol/mol [employer] 12/08/2020 5:23 PM CDT [facility] ([facility]) Comment: This test was developed and its performance characteristics determined by [facility]. It has not been cleared or approved by the [place] Food and Drug Administration. This test was performed in a CLIA certified laboratory and is intended for clinical purposes. Urine URINE SPECIMEN OBTAINED BY CLEAN CATCH PROCEDURE / Unknown Collection / Unknown 11/28/2020 3:57 PM CDT 11/28/2020 4:02 PM CDT Suleman Grissom MD LAB - URINE CHEMISTR Y ORDERABLES [facility] ([facility]) [address] [place] [id number] * SODIUM URINE RANDOM (11/28/2020 3:57 PM CDT) Sodium Urine 30 Not Established mmol/L 11/28/2020 4:29 PM CDT [facility] Urine URINE SPECIMEN OBTAINED BY CLEAN CATCH PROCEDURE / Unknown Collection / Unknown 11/28/2020 3:57 PM CDT 11/28/2020 4:02 PM CDT Suleman Grissom MD LAB - URINE CHEMISTR Y ORDERABLES Performing Organization Address [facility]/ZIP Co de Phone Number [address] [address], [facility] [phone] * POTASSIUM URINE RANDOM (11/28/2020 3:57 PM CDT) Potassium Urine 5.5 Not Established mmol/L 11/28/2020 4:29 PM CDT [facility] Urine URINE SPECIMEN OBTAINED BY CLEAN CATCH PROCEDURE / Unknown Collection / Unknown 11/28/2020 3:57 PM CDT 11/28/2020 4:02 PM CDT Suleman Grissom MD LAB - URINE CHEMISTR Y ORDERABLES Performing Organization Address City/[facility]/ZIP Co de Phone Number [address] [address], [facility] [phone] * CREATININE URINE RANDOM (11/28/2020 3:57 PM CDT) Creatinine Urine 18 Not Established mg/dL 11/29/2020 5:40 AM CDT [facility] Urine URINE SPECIMEN OBTAINED BY CLEAN CATCH PROCEDURE / Unknown Collection / Unknown 11/28/2020 3:57 PM CDT 11/28/2020 4:02 PM CDT Suleman Grissom MD LAB - URINE CHEMISTR Y ORDERABLES [facility] [address] [place] [address], [facility] [phone] * CARDIAC EKG ORDER (11/28/2020 2:43 PM CDT) Narrative 11/28/2020 2:43 PM CDT Ordered by an unspecified provider. Scanned Document CARDIAC SERVICES ORD ERABLES * HELICOBACTER PYLORI ANTIGEN FECES (11/27/2020 4:30 PM CDT) Helicobacter pylori Antigen Stool Negative Negative 11/30/2020 1:22 PM CDT Cyrba ([facility]) Comment: Performed By: [employer] [address] [place] [address] Shipyard Laborer: Mary Engle MD Stool STOOL SPECIMEN / Unknown Collection / Unknown 11/27/2020 4:30 PM CDT 11/27/2020 4:34 PM CDT Erick Kuhn MD LAB - MICROBIOLOGY ORDERABLES Performing Organization Address City/[facility] Co de Phone Number [facility]) [address] * [place] SMALL BOWEL SERIES (11/27/2020 3:56 PM CDT) Anatomical Region Laterality Modality Abdomen Radiographic Elisha ging 11/27/2020 3:55 PM CDT Impressions 11/30/2020 1:57 PM CDT IMPRESSION: Modification of the small bowel is reidentified otherwise unremarkable small bowel series. Dictated by Efraín Abreu MD (campus president). I, Dr. YURI GRAVES MD, [facility] have personally reviewed and interpreted this examination/study. This report was electronically signed by YURI GRAVES MD, [facility] ??on 11/30/2020 1:57 PM . Narrative 11/30/2020 1:57 PM CDT EXAMINATION: Small bowel series HISTORY: R10.12: LUQ pain COMPARISON: None. FLUOROSCOPY TIME: 3 seconds PROCEDURE: The patient was given 100 contrast and serial radiographs were obtained at 15 to 30 minute intervals. FINDINGS: Contrast is seen entering the stomach and progressing through the duodenum into the small bowel. There is no evidence of obstruction or extravasation of contrast. No mass lesion, stricture, or ulceration is seen. The terminal ileum appears to be normal. Transit time was 120 minutes. Malrotation noted on exam, seen on previous studies. Sacrum was evaluated and displaced superomedially. Procedure Note Yuri Graves MD - 11/30/2020 EXAMINATION: Small bowel series HISTORY: R10.12: LUQ pain COMPARISON: None. FLUOROSCOPY TIME: 3 seconds PROCEDURE: The patient was given 100 contrast and serial radiographs were obtainedat 15 to 30 minute intervals. FINDINGS: Contrast is seen entering the stomach and progressing through theduodenum into the small bowel. There is no evidence of obstruction orextravasation of contrast. No mass lesion, stricture, or ulceration is seen. The terminal ileum appears to be normal. Transit time was 120 minutes. Malrotation noted on exam, seen on previous studies. Sacrum was evaluated and displaced superomedially. IMPRESSION: Modification of the small bowel is reidentified otherwise unremarkable small bowel series. Dictated by Efraín Abreu MD (campus president). IDr. YURI MD, [facility] have personally reviewedand interpreted this examination/study. This report was electronically signed by YURI GRAVES MD, [facility] on 11/30/2020 1:57 PM . Erick Kuhn MD FLUOROSCOPY ORDERA BLES * LACTIC ACID BLOOD (11/27/2020 3:43 AM CDT) Only the most recent of2 resultswithin the time period is included. [facility] Lactic Acid-Stat 0.8 <=2.0 mmol/L 11/27/2020 4:16 AM CDT [facility] Blood BLOOD SPECIMEN / Unknown Venipuncture / Unknown 11/27/2020 3:43 AM CDT 11/27/2020 3:50 AM CDT Suleman Grissom MD LAB - CHEMISTRY COLTEN GROVES [facility] [address] [place] [address], [facility] [phone] * SARS-COV-2 (COVID-19)+INFLU A+B PCR RAPID (11/27/2020 2:42 AM CDT) [facility] COVID-19 PCR Not detected Not detected 11/28/19 21 3:27 AM CDT [facility] Influenza A Rapid MARLA Not Detected Not Detected 11/27/2020 3:27 AM CDT [facility] Influenza B MARLA Rapid Not Detected Not Detected 11/27/2020 3:27 AM CDT [facility] Microbiology SPECIMEN FROM NASOPHARYNGEAL STRUCTURE / Unknown Collection / Unknown 11/27/2020 2:42 AM CDT 11/27/2020 3:01 AM CDT Narrative [facility] - 11/27/2020 3:27 AM CDT Influenza assay performed by Nucleic Acid Amplification. Results do not exclude the possibility of a mixed viral infection. NOTE: ??Detecting and identifying specific viral nucleic acids from individuals exhibiting signs and symptoms of respiratory infection aids in the diagnosis of respiratory infection, if used in conjunction with other clinical and laboratory findings. The results of this test should not be used as the sole basis for diagnosis, treatment, or patient management decisions. This nucleic acid amplification assay performance was validated by [facility]. This test has been authorized by the Food and Drug administration (FDA)under an Emergency??Use Authorization (EUA). This test has been validated in accordance with the FDA's guidance document Policy for Diagnostic Testing in Laboratories Certified to perform High Complexity Testing under CLIA prior to Emergency Use Authorization for Coronavirus Disease-2019 during the Public Health Emergency issued on May 18, 2019. FDA independent review of this validation is pending. This test is only authorized for the duration of time the declaration that circumstances exist justifying the authorization of emergency use of in vitro diagnostic tests for detection of SARS-CoV-2 virus and/or diagnosis of COVID-19 infection under section 564(b)(1) of the Act, 21 U.S.C 360bbb-3 (b)(1), unless the authorization is terminated or revoked sooner. Fact Sheets for this EUA assay are available upon request. 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 Loops of small bowel in the right abdomen have thickened soto, suggesting enteritis. Report drafted by Duncan Hubbard (resident) Dr. Katie Matias M.D. have personally reviewed and interpreted this examination/study. This report was electronically signed by Katie SOOD M.D. ??on 11/27/2020 1:55 PM . Narrative 11/27/2020 1:55 PM CDT Procedure Information DATE: 11/26/2020 7:52 PM EXAMINATION: Computed tomography (CT) of the abdomen and pelvis with contrast TECHNIQUE: CT of the abdomen and pelvis was performed following the uneventful administration of 100 mL of Isovue 370 intravenous contrast according to standard protocol. Clinical Information HISTORY: R10.12: LUQ pain COMPARISON: CT abdomen pelvis on 05/25/2010 Findings Lower Chest: A large calcified granuloma is present in the right lung base. Hepatobiliary, pancreas and spleen: The liver appears normal. No focal hepatic lesions are visualized. The gallbladder appears normal. There is no intra or extrahepatic bile duct dilatation. The spleen is normal. The pancreas appears normal without evidence of pancreatic ductal dilatation. Kidneys: Tiny hypoattenuating foci likely represent renal cysts. There is no hydronephrosis or renal calculi. Adrenals: Right adrenal calcifications are seen. The left adrenal gland is normal. Retroperitoneum/peritoneum/gastrointestinal: The stomach appears normal. The duodenum does not extend across the midline and remains on the right side of the abdomen representing malrotation. The SMA/SMV relationship is reversed as expected. The colonic loops are on the left side of the abdomen. There is thickening of small bowel loops in the right upper quadrant (image 84, series 3). The large and small bowel otherwise appear normal Appendix: Normal, located in the lower abdominal midline (series 4 image 32). Pelvic Structures: The bladder is normal. The prostate is seen. There is no free pelvic fluid. Vasculature: Minimal atherosclerotic changes of the infrarenal aorta and bilateral iliac arteries is noted. The SMA lies to the right of the SMV, consistent with malrotation. Bones: The visible osseous structures are intact. Soft tissues: Normal. Procedure Note Sarah Sood MD - 11/27/2020 Procedure Information DATE: 11/26/2020 7:52 PM EXAMINATION: Computed tomography (CT) of the abdomen and pelvis with contrast TECHNIQUE: CT of the abdomen and pelvis was performed following the uneventful administration of 100 mL of Isovue 370 intravenous contrast according to standard protocol. Clinical Information HISTORY: R10.12: LUQ pain COMPARISON: CT abdomen pelvis on 05/25/2010 Findings Lower Chest: A large calcified granuloma is present in the right lung base. Hepatobiliary, pancreas and spleen: The liver appears normal. No focal hepatic lesions are visualized. The gallbladder appears normal. There is no intra or extrahepatic bile duct dilatation. The spleen is normal. The pancreas appears normal without evidence of pancreatic ductal dilatation. Kidneys: Tiny hypoattenuating foci likely represent renal cysts. There is no hydronephrosis or renal calculi. Adrenals: Right adrenal calcifications are seen. The left adrenal gland is normal. Retroperitoneum/peritoneum/gastrointestinal: The stomach appears normal. The duodenum does not extend across the midline and remains on the right side of the abdomen representing malrotation. The SMA/SMV relationship is reversed as expected. Thecolonic loops are on the left side of the abdomen. There is thickening of small bowel loops in the right upper quadrant (image 84, series 3). The large and small bowel otherwise appear normal Appendix: Normal, located in the lower abdominal midline (series 4 image 32). Pelvic Structures: The bladder is normal. The prostate is seen. There is no free pelvicfluid. Vasculature: Minimal atherosclerotic changes of the infrarenal aorta and bilateral iliac arteries is noted. The SMA lies to the right of the SMV, consistent with malrotation. Bones: The visible osseous structures are intact. Soft tissues: Normal. 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 Loops of small bowel in the right abdomen have thickened soto, suggesting enteritis. Report drafted by Duncan Hubbard (resident) Dr. Katie Matias M.D. have personally reviewed and interpretedthis examination/study. This report was electronically signed by Katie SOOD M.D. on 11/27/2020 1:55 PM . Deborah Lion MD CT ORDERABLES * EKG 12-LEAD (11/26/2020 5:43 PM CDT) Only the most recent of4 resultswithin the time period is included. Ventricular Rate 72 BPM [facility] Atrial Rate 72 BPM [facility] MUSE P-R Interval 160 ms [facility] QRS Duration ms 86 ms [facility] Q-T Interval ms 360 ms [facility] MUSE QTC Calculation (Bezet) 394 ms [facility] MUSE Calculated P [place] 56 degrees [facility] MUSE Calculated R [place] 78 degrees [facility] Calculated T [place] 28 degrees H MUSE Interpretation EKG NORMAL SINUS RHYTHM WITH SINUS ARRHYTHMIA NORMAL ECG WHEN COMPARED WITH ECG OF 19-APR-2017 05:06, NO SIGNIFICANT CHANGE WAS FOUND Confirmed by Dany Elias ([id number]) on 11/30/2020 7:13:22 AM [facility] MUSE 11/26/2020 5:43 PM CDT 11/30/2020 7:13 AM CDT Deborah Lion MD ECG ORDERABLES [facility] MUSE * TROPONIN I (11/26/2020 5:37 PM CDT) Only the most recent of4 resultswithin the time period is included. Troponin I <0.010 <0.032 ng/mL 11/26/2020 6:12 PM CDT [facility] Blood BLOOD SPECIMEN / Unknown Venipuncture / Unknown 11/26/2020 5:37 PM CDT 11/26/2020 5:44 PM CDT Deborah Lion MD LAB - CHEMISTRY COLTEN GROVES [facility] Organization Address City/State/ZIP Co de Phone Number [facility] [address] [place] [address], [facility] [phone] * URINALYSIS W/MICROSCOPIC NO CULTURE (11/26/2020 4:14 PM CDT) Color UA Yellow Straw, Yellow 11/26/2020 4:34 PM CDT [facility] Clarity UA Clear Clear 11/26/2020 4:34 PM CDT [facility] Specific [place] UA 1.018 1.005 - 1.030 11/26/2020 4:34 PM T [facility] pH UA 5.0 5.0 - 8.0 pH 11/26/2020 4:34 PM T [facility] Protein UA Negative Negative 11/26/2020 4:34 PM T [facility] Glucose UA Negative Negative 11/26/2020 4:34 PM T [facility] Ketone UA Negative Negative 11/26/2020 4:34 PM T [facility] Bilirubin UA Negative Negative 11/26/2020 4:34 PM CDT [facility] Blood UA Negative Negative 11/26/2020 4:34 PM [facility] Nitrite UA Negative Negative 11/26/2020 4:34 PM [facility] Leukocyte Esterase Negative Negative 11/26/2020 4:34 PM T [facility] Urobilinogen UA Negative Negative mg/dL 11/26/2020 4:34 PM T [facility] RBC UA 0-2 None Seen, 0-2, 3-5 /HPF 11/26/2020 4:34 PM [facility] WBC UA 0-5 None Seen, 0-5 /HPF 11/26/2020 4:34 PM [facility] Squamous Epithelial Cells UA None Seen None Seen, 0-2, 3-5 /HPF 11/26/2020 4:34 PM [facility] Urine URINE SPECIMEN OBTAINED BY CLEAN CATCH PROCEDURE / Unknown Collection / Unknown 11/26/2020 4:14 PM CDT 11/26/2020 4:22 PM CDT [facility] - 11/26/2020 4:34 PM CDT Efraín Mooney MD LAB - URINALYSIS ORD ERABLES [facility] [address] [place] [address], [facility] [phone] * (ABNORMAL) COMPREHENSIVE METABOLIC PANEL (11/26/2020 4:11 PM CDT) Only the most recent of2 resultswithin the time period is included. BUN 16 7 - 26 mg/dL 11/26/2020 4:42 PM [facility] Creatinine 1.21(H) 0.71 - 1.16 mg/dL 11/26/2020 4:42 PM [facility] Sodium 140 136 - 145 mmol/L 11/26/2020 4:42 PM [facility] Potassium 4.1 3.5 - 4.5 mmol/L 11/26/2020 4:42 PM [facility] Chloride 108(H) 98 - 107 mmol/L 11/26/2020 4:42 PM [facility] CO2 23 22 - 29 mmol/L 11/26/2020 4:42 PM [facility] Glucose 97 70 - 115 mg/dL 11/26/2020 4:42 PM [facility] Calcium 9.6 8.4 - 10.2 mg/dL 11/26/2020 4:42 PM [facility] Protein Total 7.1 6.0 - 8.3 g/dL 11/26/2020 4:42 PM [facility] Albumin 4.0 3.4 - 5.0 g/dL 11/26/2020 4:42 PM [facility] Bilirubin Total 0.8 0.2 - 1.2 mg/dL 11/26/2020 4:42 PM [facility] Alkaline Phosphatase 89 40 - 150 U/L 11/26/2020 4:42 PM [facility] ALT 34 5 - 55 U/L 11/26/2020 4:42 PM [facility] AST 22 5 - 34 U/L 11/26/2020 4:42 PM [facility] Anion Gap 13 8 - 18 11/26/2020 4:42 PM [facility] BUN/Creatinine Ratio 13 7 - 23 11/26/2020 4:42 PM [facility] Osmolality Calculated 291 270 - 300 mOsm/kg 11/26/2020 4:42 PM [facility] Albumin/Globulin Ratio 1.3 1.1 - 2.3 11/26/2020 4:42 PM [facility] eGFR by CKD-EPI 70(L) >=90 mL/min/1.7 3 m2 11/26/2020 4:42 PM [facility] Blood BLOOD SPECIMEN / Unknown Venipuncture / Unknown 11/26/2020 4:11 PM CDT 11/26/2020 4:19 PM CDT Efraín Mooney MD LAB - CHEMISTRY COLTEN GROVSE [facility] [address] [place] [address], [facility] [phone] * LIPASE BLOOD (11/26/2020 4:11 PM CDT) Lipase 19 8 - 78 U/L 11/26/2020 4:44 PM T [facility] Blood BLOOD SPECIMEN / Unknown Venipuncture / Unknown 11/26/2020 4:11 PM CDT 11/26/2020 4:19 PM CDT Efraín Mooney MD LAB - CHEMISTRY COLTEN GROVES [facility] [address] [place] [address], [facility] [phone] * HEMOGLOBIN A1C (04/19/2017 7:54 AM [employer]) Hemoglobin A1c 5.6 4.4 - 6.3 % [facility] Estimated Average Glucose 114 mg/dL [facility] Comment: HbA1c Interpretation: Treatment target values recommended by ADA and other clinical organizations should be used to evaluate metabolic control in patients. Treatment Target Values: Normal : < 5.7% Pre-diabetes: 5.7-6.4% Diabetes: Equal to or greater than 6.5% Reference: [place] [employer] Standards of Care in Diabetes -2014 In patients 70 years and older consider HbA1c target range of 7.0-7.5% Reference: ??Diabetes Mellitus in Older People: Position Statement on behalf of the International Association of Gerontology and Geriatrics (IAGG), the Diabetes Working [employer] Party for Older People (EDWPOP), and the International Task Force of Experts in Diabetes. ??Dario Mcgowan, et al. J [employer]. 2012 Test results diagnostic of diabetes should be repeated for confirmation. The Tosoh G8 assay for the measurement of HbA1c is a National Glycohemoglobin Standardization Program (NGSP)certified method. Results for patients with HbE disease should be interpreted with caution as this hemoglobinopathy has been shown to interfere with the Tosoh G8 assay. Blood specimen (specimen) BLOOD SPECIMEN / Unknown 04/19/2017 7:54 AM [employer] 04/19/2017 8:00 AM [employer] Elise Hennessy MD LAB - CHEMISTRY COLTEN GROVES [facility] [address] [place] [address], [facility] [phone] * (ABNORMAL) LIPID PROFILE (04/19/2017 7:54 AM [employer]) Cholesterol Total 167 <200 mg/dL [facility] HDL 32(L) >40 mg/dL [facility] Comment: ATP III Classification of HDL Cholesterol: ? <40 mg/dL: ??Considered a major risk factor. ? >60 mg/dL: ??Considered a negative risk factor. ? LDL Calculated 102(H) <100 mg/dL [facility] Comment: ATP III Classification of LDL Cholesterol: ?<100 mg/dL: ??Optimal ? 100 - 129 mg/dL: ??Near Optimal/Above Optimal ? 130 - 159 mg/dL: ??Borderline High ? 160 - 189 mg/dL: ??High ?>190 mg/dL: ??Very High ? Triglycerides 166(H) <150 mg/dL [facility] Comment: ATP III Classification of Triglycerides: ?<150 mg/dL: ??Normal ? 150 - 199 mg/dL: ??Borderline High ? 200 - 400 mg/dL: ??High ?>500 mg/dL: ??Very High Blood specimen (specimen) BLOOD SPECIMEN / Unknown 04/19/2017 7:54 AM [employer] 04/19/2017 8:00 AM [employer] Elise Hennessy MD LAB - CHEMISTRY COLTEN GROVES [facility] Organization Address [facility]/State/[facility] Co de Phone Number [facility] [address] [place] [address] * PTT [facility] (04/19/2017 4:06 AM [employer]) APTT 28.8 23.0 - 38.4 Seconds [facility] Comment:Suggested therapeuti c range for full dose I.V. heparin therapy for venous thromboembolism is 66.0-91.0 seconds. Blood specimen (specimen) BLOOD SPECIMEN / Unknown 04/19/2017 4:06 AM [employer] 04/19/2017 4:10 AM [employer] Narrative [facility] - 04/19/2017 4:22 AM [employer] Please ensure that the aPTT specimen is received in the clinical lab within 1 hour of collection if it is used for therapeutic heparin monitoring. Processing of heparinized specimens older than 1 hour may result in inaccurate test results. Is patient on Heparin, Argatroban or Dabigatran?->N Stas Schulz MD LAB - COAGULATION OR DERABLES Performing Organization Address [facility] de Phone Number [address] [phone] * PT-INR [facility] (04/19/2017 4:06 AM [employer]) PT 13.7 12.1 - 14.8 Seconds [facility] INR 1.1 See Comment [facility] Comment: Suggested therapeutic range for low-intensity coumadin therapy for venous thromboembolism prophylaxis is an INR of 2.0-3.0. ??For high risk patients (Mitral Valve Prosthesis, Atrial Fibrillation, history of TIA/stroke), suggested prophylactic therapeutic range is an INR of 2.5-3.5. Blood specimen (specimen) BLOOD SPECIMEN / Unknown 04/19/2017 4:06 AM [employer] 04/19/2017 4:10 AM [employer] Narrative [facility] - 04/19/2017 4:22 AM [employer] Is patient on Heparin, Argatroban or Dabigatran?->N Stas Schulz MD LAB - COAGULATION OR DERABLES Performing Organization Address [facility] de Phone Number [address] [phone] * CT ANGIO CHEST PULM EMBOLISM (04/19/2017 3:18 AM [employer]) Anatomical Region Laterality Modality Chest Other Impressions 04/19/2017 9:14 AM [employer] IMPRESSION: 1. No CT evidence of pulmonary embolism. 2. No acute process identified in the chest. Dictated by Florentin Oro MD (campus president). I, Dr. JEANNETTE BATISTA M.D. have personally reviewed and interpreted this examination/study. This report was electronically signed by JEANNETTE BATISTA M.D. ??on 04/19/2017 9:14 AM . Narrative 04/19/2017 9:14 AM [employer] EXAMINATION: Computed tomography (CT) of the chest with contrast HISTORY: Chest pain with syncope. TECHNIQUE: CT of the chest was performed following the uneventful administration of 100 mL of Omnipaque 350 intravenous contrast according to a pulmonary embolism protocol. COMPARISON: No prior study is available for comparison. FINDINGS: There are no filling defects in the pulmonary arteries to suggest pulmonary embolism. The main pulmonary artery is normal in course and caliber. There is a left-sided two-vessel aortic arch. The aorta and main pulmonary arteries are normal in course and caliber. The lungs are clear of focal consolidation. No pleural effusion or focal pleural thickening is identified. There is no evidence of pneumothorax. No suspicious pulmonary nodule is identified. A 4 mm nodule along the right minor fissure represents an intrafissural lymph node (series 8 image 45). There is a 1.3 cm calcified granuloma in the right lower lobe. An additional 4 mm calcified nodule is present in the left lower lobe. The trachea is patent and midline. The heart size is normal. No pericardial effusion is present. No mediastinal, hilar, supraclavicular, or axillary lymphadenopathy is seen. Calcified bilateral hilar lymph nodes are indicative of old granulomatous disease. The visible portions of the liver, gallbladder, spleen, pancreas, adrenal glands, kidneys, stomach, and bowel are normal. Calcifications are noted in the right adrenal gland. Bone windows demonstrate no suspicious lytic or blastic lesions. The visible osseous structures are intact. Mild multilevel degenerative changes are noted in the spine. Procedure Note Jeannette Batista MD - 06/21/2017 EXAMINATION: Computed tomography (CT) of the chest with contrast HISTORY: Chest pain with syncope. TECHNIQUE: CT of the chest was performed following the uneventfuladministration of 100 mL of Omnipaque 350 intravenous contrast accordingto a pulmonary embolism protocol. COMPARISON: No prior study is available for comparison. FINDINGS: There are no filling defects in the pulmonary arteries to suggestpulmonary embolism. The main pulmonary artery is normal in course andcaliber. There is a left-sided two-vessel aortic arch. The aorta and mainpulmonary arteries are normal in course and caliber. The lungs are clear of focal consolidation. No pleural effusion or focalpleural thickening is identified. There is no evidence of pneumothorax. Nosuspicious pulmonary nodule is identified. A 4 mm nodule along the rightminor fissure represents an intrafissural lymph node (series 8 image 45). There is a 1.3 cm calcifiedgranuloma in the right lower lobe. An additional 4 mm calcified nodule ispresent in the left lower lobe. The trachea is patent and midline. The heart size is normal. No pericardial effusion is present. Nomediastinal, hilar, supraclavicular, or axillary lymphadenopathy is seen.Calcified bilateral hilar lymph nodes are indicative of old granulomatousdisease. The visible portions of the liver, gallbladder, spleen, pancreas, adrenalglands, kidneys, stomach, and bowel are normal. Calcifications are notedin the right adrenal gland. Bone windows demonstrate no suspicious lytic or blastic lesions. Thevisible osseous structures are intact. Mild multilevel degenerativechanges are noted in the spine. IMPRESSION IMPRESSION: 1. No CT evidence of pulmonary embolism. 2. No acute process identified in the chest. Dictated by Florentin Oro MD (campus president). Dr. JEANNETTE Matias M.D. have personally reviewed and interpreted thisexamination/study. This report was electronically signed by JEANNETTE BATISTA M.D. on 04/19/20179:14 AM . Stas Schulz MD CT ORDERABLES * XR CHEST 1VW PORTABLE (04/19/2017 2:25 AM ELECTRONIC SCALE ASSEMBLER AND TESTER) Anatomical Region Laterality Modality Chest Other Impressions 04/19/2017 11:26 AM ELECTRONIC SCALE ASSEMBLER AND TESTER IMPRESSION: Calcified nodule and calcified granuloma is better characterized on the concurrent same-day CT chest. There is no focal consolidation, pleural effusion, or pneumothorax. The cardiac silhouette is normal. The mediastinal silhouette is normal. The visible bony thorax is intact. Report dictated by Darius Gross M.D. (campus president). Dr. ESTER Matias M.D. have personally reviewed and interpreted this examination/study. This report was electronically signed by ESTER ALONZO M.D. ??on 04/19/2017 11:26 AM . Narrative 04/19/2017 11:26 AM ELECTRONIC SCALE ASSEMBLER AND TESTER EXAMINATION: PX CHEST 1 VW HISTORY: chest pain COMPARISON: No prior study is available for comparison. FINDINGS/ Procedure Note Ester Alonzo MD - 06/21/2017 EXAMINATION: PX CHEST 1 VW HISTORY: chest pain COMPARISON: No prior study is available for comparison. FINDINGS/ IMPRESSION IMPRESSION: Calcified nodule and calcified granuloma is better characterized on theconcurrent same-day CT chest. There is no focal consolidation, pleuraleffusion, or pneumothorax. The cardiac silhouette is normal. Themediastinal silhouette is normal. The visible bony thorax is intact. Report dictated by Darius Gross M.D. (campus president). I, Dr. ESTER ALONZO M.D. have personally reviewed and interpretedthis examination/study. This report was electronically signed by ESTER ALONZO M.D. on04/19/2017 11:26 AM . Stas Schulz MD DIAGNOSTIC IMAGING O RDERABLES * ECHO STRESS TEST W EXERCISE (04/19/2017 12:00 AM ELECTRONIC SCALE ASSEMBLER AND TESTER) Anatomical Region Laterality Modality Other 04/19/2017 Elise Hennessy MD ECHOCARDIOGRAPHY RAD IANT * ECHO STRESS COLOR FLOW AND DOPPLER (04/19/2017 12:00 AM ELECTRONIC SCALE ASSEMBLER AND TESTER) Anatomical Region Laterality Modality Other 04/19/2017 Elise Hennessy MD ECHOCARDIOGRAPHY RAD IANT * LAB MICROBIOLOGY - HPF HISTORICAL (11/09/2008 5:02 AM CDT) Only the most recent of2 resultswithin the time period is included. 11/09/2008 5:02 AM CDT Narrative [facility] - 11/09/2008 5:02 AM CDT Elidia Isaac MD LAB - MICROBIOLOGY O R[facility]NA [facility] Care Teams Prompt Care Rn Relationship Specialty Start Date End Date Helga Brewster, MACHINE DESIGN ENGINEER-[facility] [address] [place] [address] PCP - General Family Medicine 11/06/23
--- OUTSIDE RECORDS SUMMARY | 2024-03-16 15:20 | XMS_ITS | Referral Summary ---
Author Organization [facility] Address [address] [place] [address] Care Team Providers Care Investments Manager Name Role Phone Helga Brewster APRN-MACHINE SHORTHAND TEACHER Primary Care Provider Source Comments [facility],non-owned Affiliates and Associated Physician Practices is amultiple site organization consisting of ambulatory clinics and hospital sitesin [place], [place], [place] and [place]. This disclosure is being madepursuant to the Care Everywhere program and may not contain all information available regarding this patient. Last updated 17.[facility] Encounters Date Type Department Care Team Description 02/08/2024 1:41 PM INFORMATION TECHNOLOGY INTERN - 02/08/2024 11:59 PM [facility] Hospital Encounter [facility] EEG/EMG [address] [place] [address] Sergio Park MD Huser, Sara N, DO Discharge Disposition: Home or Self Care from Last 3 Months Allergies No known active allergies Medications * [...] drowsiness. 15 tablet 01/18/2022 Active HYDROcodone-aceta minophen ([place]) 5-325 MG tablet Take 1 tablet every [...] Mass Index 24.14 11/06/2023 9:01 AM CDT Functional Status Functional Status Response Date of Assess ment Is person deaf or have serious hearing difficult y? No 11/28/2020 Is person blind or have serious difficulty seein g? No 11/28/2020 Does person have serious dif ficulty walking/climbing stairs? No 11/28/2020 Does person have difficulty dressing/bathing? No 11/28/2020 Does person have difficulty doing errands alone? No 11/28/2020 Cognitive Status Response Date of Assessm ent Does person have difficulty concentrating/remembering/making decisions? No 11/28/2020 Plan of Treatment Not on file Goals Goal Patient Goal Type Associated Problems Recent Progress Patient-Stated? Author Medication Management General On track( 021 8:26 AM CDT) No Kristin Cedeno, EMERALD Note: Expected end date: ongoing Interventions: Take all medications as prescribed Let your doctor know right away about any changes in your medications Make sure to request a refill of your medication at least one week prior to your last dose Procedures Procedure Name Priority Date/Time Associated Diagnosis Comments LIPID PROFILE Routine 04/19/2017 7:54 AM INFORMATION TECHNOLOGY INTERN from Last 3 Months or Most Recently Relevant to Health Maintenance Results * (ABNORMAL) LIPID PROFILE (04/19/2017 7:54 AM INFORMATION TECHNOLOGY INTERN) Cholesterol Total 167 <200 mg/dL [facility] HDL 32(L) >40 mg/dL [facility] Comment: ATP III Classification of HDL Cholesterol: ? <40 mg/dL: ??Considered a major risk factor. ? >60 mg/dL: ??Considered a negative risk factor. ? LDL Calculated 102(H) <100 mg/dL [facility] Comment: ATP III Classification of LDL Cholesterol: ?<100 mg/dL: ??Optimal ? 100 - 129 mg/dL: ??Near Optimal/Above Optimal ? 130 - 159 mg/dL: ??Borderline High ? 160 - 189 mg/dL: ??High ?>190 mg/dL: ??Very High ? Triglycerides 166(H) <150 mg/dL [facility] Comment: ATP III Classification of Triglycerides: ?<150 mg/dL: ??Normal ? 150 - 199 mg/dL: ??Borderline High ? 200 - 400 mg/dL: ??High ?>500 mg/dL: ??Very High Blood specimen (specimen) BLOOD SPECIMEN / Unknown 04/19/2017 7:54 AM INFORMATION TECHNOLOGY INTERN 04/19/2017 8:00 AM INFORMATION TECHNOLOGY INTERN Elise Hennessy MD LAB - CHEMISTRY [place]OVES Performing Organization Address City/State/[facility] Co de Phone Number [facility] [address] [place] [address] from Last 3 Months or Most Recently Relevant to Health Maintenance Advance Directives * Full Code (Latest Code Status on File) Date Activated Date Inactivated Comments 11/27/2020 1:33 AM 11/29/2020 12:56 PM Care Teams Investments Manager Relationship Specialty Start Date End Date Helga Brewster, SENIOR SCHEDULER-MACHINE SHORTHAND TEACHER [address] [place] [address] PCP - General Family Medicine 11/06/23
--- OUTSIDE RECORDS SUMMARY | 2024-03-16 15:21 | XMS_ITS | Encounter Summary ---
Author Organization [facility] Address [address] [place] [address] Care Team Providers Care Drag Out Worker Name Role Phone Jeimy Kathleen MD Primary Care Provider [phone] Helga Brewster APRN-REGIONAL ENVIRONMENTAL MANAGER Primary Care Provider Encounter Details Date Type Department Care Team (Late st Contact Info) Description 11/01/2023 Orders Only [facility] - Orthopedic Surgery [address] [place] [phone] Sergio Park MD [address] [facility] ORTHOPEDIC SURGERY [place], [place] [id number] Other back pain, unspecified chronicity Social History Tobacco Use Types Packs/Day Years Used Date Smoking Tobacco: Every Day Cigarettes 1 20 Smokeless Tobacco: Never Alcohol Use Standard Drinks/Week Comments Never 0 (1 standard drink = 0.6 oz pur e alcohol) Sex and Gender Information Value Date Recorded Sex Assigned at Not on file Gender Identity Not on file Sexual Orientation Not on file documented as of this encounter Functional Status Functional Status Response Date of [...] person have difficulty concentrating/remembering/making decisions? No 11/28/2020 documented as of this encounter Plan of Treatment Not on file documented as of this encounter Goals Goal Patient Goal Type Associated Problems [...] one week prior to your last dose documented as of this encounter Results * XR Spine Entire 2 or [...] Sergio Park MD DIAGNOSTIC IMAGING O RDERABLES documented in this encounter Visit Diagnoses Diagnosis Other back pain, unspecified chronicity- Primary Other back pain, unspecified chronicity documented in this encounter Care Teams Drag Out Worker Relationship Specialty Start Date End Date Jeimy Kathleen MD [address] [place], [place] [phone] PCP - General Family Medicine 11/26/20 11/05/23 Helga Brewster, ANIMAL DAMAGE CONTROL AGENT-REGIONAL ENVIRONMENTAL MANAGER [address] [place] [address] PCP - General Family Medicine 11/06/23 documented as of this encounter
--- OUTSIDE RECORDS SUMMARY | 2024-03-16 15:21 | XMS_ITS | Encounter Summary ---
Author Organization [facility] Address [address] [place] [address] Care Team Providers Care Hhas Name Role Phone Jeimy Kathleen MD Primary Care Provider [phone] Reason for Visit * Reason Comments Chong's Esophagus Pain Abdominal Encounter Details Date Type Department Care Team (Late st Contact Info) Description 12/30/2020 9:00 AM CDT Office Visit [facility] - GI [address] [place] [phone] Jeimy Kathleen MD [address] [place] [address] [place] [address] Adrianna Long MD [address] [place] [address] [place] [phone] Nerve entrapment syndrome (Primary Dx); Intestinal malrotation (HCC) Social History Tobacco Use Types Packs/Day Years Used Date Smoking Tobacco: Every Day Cigarettes 1 20 Smokeless Tobacco: Never Alcohol Use Standard Drinks/Week Comments Never 0 (1 standard drink = 0.6 oz pur e alcohol) Sex and Gender Information Value Date Recorded Sex Assigned at Not on file Gender Identity Not on file Sexual Orientation Not on file documented as of this encounter Last Filed Vital Signs Vital Sign Reading Time Taken Comments Blood Pressure 135/78 12/30/2020 8:13 AM CDT Pulse 71 12/30/2020 8:13 AM CDT Temperature 36.8 ??C (98.2 ??F) 12/30/2020 8:13 AM CD T Respiratory Rate 18 12/30/2020 8:13 AM CDT Oxygen Saturation 99% 12/30/2020 8:13 AM CDT Inhaled Oxygen Concentration - - Weight 89.2 kg (196 lb 9.6 oz) 12/30/2020 8:13 A M CDT Height 182.9 cm (6') 12/30/2020 8:13 AM CDT Body Mass Index 26.66 12/30/2020 8:13 AM CDT documented in this encounter Functional Status Functional Status Response [...] No 11/28/2020 documented as of this encounter Patient Instructions * Patient Instructions* Adrianna Long MD - 12/30/2020 8:54 AM CDT It was a pleasure to talk to you today in our clinic visit. I have also included below what we discussed. Please contact me with any concerns or questions you have by mychart or phone. I hope you andyour family stay healthy and safe. Remember, we are here for you. Dr. 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 Recommend pain specialist for injections or discuss with your PCP for steroid or lidocaine injections. Ask your PCP about gabapentin-I gave you a Rx for this. Watch for side effects. Continue lidocaine patches. A refill was given. For your Barretts-I would continue protonix for silent reflux. I will request your GI records and your colon records. Anterior cutaneous nerve entrapment syndrome is a nonprogressive, albeit painful condition that is typically self-limited. The goal of treatment is to relieve symptoms. Overall approach??--??Our approach is to start with conservative therapy following an initial trigger point injection that is both diagnostic and therapeutic (algorithm 1). Conservative therapy includes activity modification and physical therapy (see 'Conservative therapy' below). Gabapentin or tric yclics may be tried (see below). In patients with partial improvement or recurrent pain after complete pain relief, we repeat combined anesthetic and glucocorticoid injections one month after the prior injection. (See 'Anesthetic, glucocorticoid injection' below.) Patients who do not respond to repeat injection after an initial response should be carefully reassessed for other causes of abdominal pain, paying specific attention to the type of ongoing symptoms,the degree to which symptoms have worsened, and compliance with conservative therapy. Reassessment is also indicated if a patient has a recurrence of symptoms after initial improvement that does not mimic the initial presentation. (See Evaluation of the adult with abdominal pain .) In patients with recurrent pain after three re-injections of combined local anesthetic and glucocorticoid in the same site within a year, we may recommend chemical neurolysis. (See 'Chemical neurolysis' below.) Conservative therapy??--??Patients should be advised to discontinue exercises that involve tension of the abdominal muscles (eg, abdominal crunches). Vigorous exercise may exacerbate the pain. Anesthetic, glucocorticoid injection??--??Trigger point injections can be performed with a local anesthetic alone or combined with a glucocorticoid [5]. Injection of an anesthetic alone results in immediate relief of symptoms in 83 to 91 percent of patients, but it often recurs after two to three hours and may be more intense [1,4,13,17-21]. Pain relief with injection of local anesthetic is sustained in 20 percent of patients [36]. However, the majority require repeated injections, which lead to lasting relief in 40 to 50 percent of patients [4,37]. Glucocorticoids, with their reported membrane stabilizing effects, may enhance the anesthetic effect. Experimental studies on neuromas suggest that they may also reduce spontaneous, ectopic discharges, possibly also helping to explain their pain-relieving effect [38]. In one study, 79 patients withabdominal wall pain were treated with an injection of 2 mL of 0.25 percent bupivacaine and 20 to 40mg of triamcinolone or a comparable agent [4]. Pain relief was observed within 72 hours. A repeat injection (days to months later) was necessary in approximately 30 percent of patients. Some patientsrequired the injection of multiple sites in which case the total volume injected was limited to 10 mL to avoid systemic effects. A long-term response was noted in 78 percent of patients at a mean follow-up of 13.8 months. However, conflicting data suggest a lack of benefit of additional corticosteroids when combined with local anesthetic [39]. documented in this encounter Consult Notes * Adrianna Long MD - 12/30/2020 8:36 AM CDT Referring MD:No ref. provider found PCP:Jeimy Kathleen MD I saw Mr. Dover in Gastroenterology [facility] at [facility] today for an initial consult to provide recommendations and/or treatment regarding: Chief Complaint Patient presents with ??? Chong's Esophagus ??? Pain Abdominal Patient Active Problem List: Intestinal malrotation History: Gastroschisis s/p surgery, reconstructive surgery 1995 for outpatient hernia Says left sided pain since November. Constant. Takes narcotics, oxycodone and it helps. Also triesflexeril. 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 Says eating smaller meals more frequently, some pain with bending over. Sneezing worse. Says was in hospital for pain. Was told intestinal malrotation. Seen by surgery and told no surgery bm q 3 days. Soft, BSS 4. No straining, no blood. Colonoscopy q 2 years, last one 2-3 years ago, EGD last year. Says for hx of polyps. Prior to this, no pains like this. No trauma, no sig social issues. Says woke up with a belly ache Stressful but no sig change No n/v/diarrhea CT 11/26/2020 with thickened small bowel BE with LGD-says ablation in past No heartburn, says silent reflux Says started protonix since discharge. No change in symptoms. No weight changes. Current Outpatient Medications Medication Sig ??? acetaminophen (TYLENOL) 500 MG tablet Take 2 (two) tablets by mouth every 8 hours as needed forPain Maximum allowable Acetaminophen amount = 4 Grams (4000 mg) / 24 hours. ??? cyclobenzaprine (FLEXERIL) 10 MG tablet Take 1 (one) tablet by mouth 3 times daily as needed for Muscle Spasms (pain) ??? lidocaine (LIDODERM) 5 % patch Apply 1 (one) patch to skin once daily ??? oxyCODONE, immediate release, (ROXICODONE) 5 MG tablet Take 1 (one) tablet by mouth every 6 hours as needed If tylenol and flexeril not helpful ??? pantoprazole EC (PROTONIX) 40 MG tablet Take 1 (one) tablet by mouth once daily No current facility-administered medications for this visit. I have reviewed with Mr. Dover his Medical, Social and Family history and I have updated and corrected these sections of his [facility] electronic health record based on my discussions with him and/or his family members present at his visit today. Social History Socioeconomic History ??? Marital status: Spouse name: Not on file ??? Number of children: Not on file ??? Years of education: Not on file ??? Highest education level: Not on file Occupational History ??? Not on file Tobacco Use ??? Smoking status: Current Every Day Smoker Packs/day: 1.00 Years: 20.00 Pack years: 20.00 Types: Cigarettes ??? Smokeless tobacco: Never Used Substance and Sexual Activity ??? Alcohol use: Never ??? Drug use: Never ??? Sexual activity: Not on file Other Topics Concern ??? Not on file Social History Narrative ??? Not on file Social Determinants of Health Financial Resource Strain: Not on file Food Insecurity: Not on file Transportation Needs: Not on file Physical Activity: Not on file Stress: Not on file Social Connections: Not on file Intimate Partner Violence: Not on file Housing Stability: Not on file . Patient Active Problem List Diagnosis Date Noted ??? 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 Eyes: none Chest pain: none. Shortness of breath: none. Rheum: none. Psych: no meds but some stress. Neurological: none Endocrine: none Hematological: none Skin:none. All other ROS are negative. Pertinent positives and negatives as above. On exam today, he appeared NAD. I reviewed today's vital signs with the patient. BP 135/78 Pulse 71 Temp 98.2 ??F (36.8 ??C) Resp 18 Ht 1.829 m (6') Wt 89.2 kg (196 lb 9.6 oz) OyK801% BMI 26.66 kg/m2 Wt Readings from Last 3 Encounters: 12/30/20 89.2 kg (196 lb 9.6 oz) 12/09/20 88.5 kg (195 lb) 11/26/20 83.9 kg (185 lb) Gen:NAD HEENT:sclera anicteric, o/p clear Neck: no LAD Skin: norashes Lungs were clear to auscultation bilaterally. Heart sounds were regular rate and rhythm. There were no murmurs. Abdomen was soft and nontender.midline scar, left mid abdomen, scar, points to focal, pain with lifting legs, tensing abd muscles, focal site of pain Pretibial edema: none. Rectal:. Neuro: no focal deficits MSK/Gait: No joint deformities, Gait normal Relevant test results: 11/2020 SBS ?? Contrast is seen entering the stomach and progressing through the duodenum into the small bowel. There is no evidence of obstruction or extravasation of contrast. No mass lesion, stricture, or ulceration is seen. The terminal ileum appears to be normal. Transit time was 120 minutes. Malrotation noted on exam, seen on previous studies. Sacrum was evaluated and displaced superomedially. ? IMPRESSION: ?? Modification of the small bowel is reidentified otherwise unremarkable small bowel series. CT 11/2020 1.Intestinal malrotation is seen without evidence of volvulus. Loops of small bowel in the right abdomen have thickened soto, suggesting enteritis. Recent Labs Component Name 11/29/20 0139 11/28/20 0152 11/27/20 0343 11/26/20 1611 04/19/17 0406 WBC 7.9 8.4 8.2 - - HGB 15.9 16.0 15.2 - - INR - - - - 1.1 - = values in this interval not displayed. Recent Labs Component Name 11/29/20 0139 MCV 88.2 Recent Labs Component Name 11/29/20 0139 11/28/20 1348 11/28/20 0152 NA 142 140 142 CL 108* 106 107 CO2 25 25 24 BUN 10 11 11 CREATININE 1.24* 1.30* 1.29* Recent Labs Component Name 11/26/20 1611 04/19/17 0754 AST 22 15 ALT 34 18 ALKPHOS 89 76 TBILI 0.8 0.9 ALB 4.0 3.7 No results for input(s): CRP in the last [address] abd/pelvis ?? 1.Intestinal malrotation is seen without evidence of volvulus. Loops of small bowel in the right abdomen have thickened soto, suggesting enteritis. Assessment/Plan: 1. Anterior cutaneous nerve entrapment syndrome -rec pain specialist for injections, can try neurontin, rx given, side effects discussed can continue lidocaine patches as doing well on these. Takes 2patches at a time. Try to avoid narcotics discussed. Think the intestinal malortation is incidentalfinding. Discussed PT options as well but he declines for now. 2. Colon polyps-is receiving q 2 years per patient. Review colon and path to determine optimal timing. This seems quite frequent. 3. GERD/Barretts esophagus-says prior LGD, prior ablation-no symptoms, continue ppi for now. Obtainprior records for timing 4. Hx of gastroschisis s/p surgery as a child and hernia surgery, has multiple abdominal scars 5. Tobacco use-not interested in stopping, counseling 6. 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 7. BM q 3 days but asymptomatic and no sig pain or straining. Follow for now. An appointment was scheduled for him to see us in followup in 6 months. Requested records as he wants to switch care here. Address letter to: No referring provider defined for this encounter. Copy to: Jeimy Kathleen MD [address] [place] [address] Dr. Araya MD [phone] documented in this encounter Plan of Treatment Not on file documented as of this encounter Goals Goal Patient Goal Type Associated Problems Recent Progress Patient-Stated? Author Medication Management General On track( 021 8:26 AM CDT) No Franta, Kristin, RN Note: Expected end date: ongoing Interventions: Take all medications as prescribed Let your doctor know right away about any changes in your medications Make sure to request a refill of your medication at least one week prior to your last dose documented as of this encounter Visit Diagnoses Diagnosis Nerve entrapment syndrome- Primary Mononeuritis of unspecified site Intestinal malrotation (HCC) Congenital anomalies of intestinal fixation documented in this encounter Care Teams Hhas Relationship Specialty Start Date End Date Jeimy Kathleen MD [address] [place] [address] Dr. [place], [place] [phone] PCP - General Family Medicine 11/26/20 11/05/23 documented as of this encounter
--- OUTSIDE RECORDS SUMMARY | 2024-03-16 15:21 | XMS_ITS | Encounter Summary ---
Author Organization [facility] Address [address] [place] [address] Care Team Providers Care Relief Pharmacist Name Role Phone Jeimy Kathleen MD Primary Care Provider [phone] Encounter Details Date Type Department Care Team (Latest Contact Info) Description 10/23/2023 Travel Social History Tobacco Use Types Packs/Day Years [...] General On track( 021 8:26 AM CDT) Kristin Padron, RN Note: Expected end date: ongoing Interventions: Take all medications as prescribed Let your doctor know right away about any changes in your medications Make sure to request a refill of your medication at least one week prior to your last dose documented as of this encounter Visit Diagnoses Not on filedocumented in this encounter Care Teams Relief Pharmacist Relationship Specialty Start Date End Date Jeimy Kathleen MD [address] [place] [address] [place] [place], [place] [phone] PCP - General Family Medicine 11/26/20 11/05/23 documented as of this encounter
--- OUTSIDE RECORDS SUMMARY | 2024-03-16 15:21 | XMS_ITS | Encounter Summary ---
Author Organization [facility] Address [address] [place] [address] Care Team Providers Care Piercing Mill Operator Name Role Phone Jeimy Kathleen MD Primary Care Provider [phone] Reason for Visit * Reason Comments Pain Head Patient ambulatory t o the ED. Pt states that he has been having pain to the left side of his neck and near the base of his skull on the left. He reports using multiple OTC medications, warm pack, and other remedies without relief. Dizziness Blurred Vision Encounter Details Date Type Department Care Team (Late st Contact Info) Description 01/18/2022 3:56 PM CDT - 01/18/2022 5:[address] [facility] [address] [place] [phone] Zoila Dahl MD [address] [place] [phone] Neck pain; Headache, unspecified headache type; Degenerative disc disease, cervical Discharge Disposition: Home or Self Care Social History Tobacco Use Types Packs/Day Years [...] CDT Inhaled Oxygen Concentration - - Weight 81.6 kg (180 lb) 01/18/2022 12:15 PM CDT Height 182.9 cm (6') 01/18/2022 12:15 PM CDT Body Mass Index 24.41 01/18/2022 12:15 PM CDT documented in this encounter Functional Status [...] No 11/28/2020 documented as of this encounter Discharge Instructions * Discharge Instructions* Ella Hensley PA-C - 01/18/2022 4:27 PM CDT Take tylenol 500 mg every four hours as needed for pain. Apply lidocaine patch to the area and remove after 12 hours. Do not exceed 3 patches in 24 hours. Take baclofen up to three times per day as needed for pain. It may make you drowsy, so do not drive after taking. I recommend taking before bed.Take gabapentin three times per day. Please follow up with your primary care physician in the next 3-5 days for re- evaluation and further management. Please understand that this Emergency Department visit is NOT COMPLETE without outpatient follow up to fully review your ED results and to reassess your condition. If you have further concerns, develop numbness or weakness in your arms or legs, or are unable to talk to your doctor, youare encouraged to return to the ED. documented in this encounter Medications at Time of Discharge Medication Sig Dispensed Refills Start Date End Date acetaminophen (Tylenol) 500 MG tablet Take 2 (two) tablets by mouth every 8 hours as needed for Pain Maximum allowable Acetaminophen amount = 4 Grams (4000 mg) / 24 hours. 30 tablet 01/18/2022 baclofen (Lioresal) 10 MG tablet Take 1 (one) tablet by mouth 3 times daily May cause drowsiness. 15 tablet 01/18/2022 cyclobenzaprine (FLEXERIL) 10 MG tablet Take 1 (one) tablet by mouth 3 times daily as needed for Muscle Spasms (pain) 90 tablet 12/30/2020 gabapentin (Neurontin) 100 MG capsule Take 1 (one) capsule by mouth 3 times daily 30 capsule 5 01/18/2022 lidocaine (Lidoderm) 5 % patch Apply 1 (one) patch to skin once daily 15 patch 5 01/18/2022 pantoprazole EC (PROTONIX) 40 MG tablet Take 1 (one) tablet by mouth once daily 30 tablet 11/28/2020 documented as of this encounter ED Notes * Josie Canas RN - 01/18/2022 4:50 PM CDT Call x 2 * Connie Crowe - 01/18/2022 4:26 PM CDT Call x1 * Zoila Dahl MD - 01/18/2022 4:16 PM CDT ED Attending Note Interval History: Dinesh Dover II is a 52 year old male is presenting to the ED c/o L posterior neck pain and headache. Patient reports that he has experienced L neck and head pain for the past three weeks. He states that this pain has been constant and fluctuating in severity. He reports that the pain is worst at the base of his L skull, stating that it radiates down into his L neck. He states that he has attempted Ibuprofen, Tylenol, Naproxen, Flexeril, Lidocaine patches, deep tissue massages, and heat application. He also reports that when he woke up this morning, he noticed that the vision in his left eye was blurry, though he states that this has since resolved. He denies having similar headaches inthe past. He denies recent injuries or falls. He denies numbness, weakness, nausea, vomiting, fever, or chills. He states that he attempted to follow-up with his PCP for these complaints, but was unable to be seen. No other complaints or modifying factors at this time. Past Medical History: Diagnosis Date ??? Chong's esophagus ??? Colon polyps ??? Gastroschisis Past Surgical History: Procedure Laterality Date ??? OTHER SURGERY abdominal reconstruction with mesh Social History Socioeconomic History ??? Marital status: Spouse name: Not on file ??? Number of children: Not on file ??? Years of education: Not on file ??? Highest education level: Not on file Occupational History ??? Not on file Tobacco Use ??? Smoking status: Every Day Packs/day: 1.00 Years: 20.00 Pack years: 20.00 Types: Cigarettes ??? Smokeless tobacco: Never Substance and Sexual Activity ??? Alcohol use: [...] on file Housing Stability: Not on file Review of Systems: (+) positive All systems negative except as marked. Constitutional: Negative for fever HENT: Negative for sore throat. Eyes: Negative for visual changes Respiratory: Negative for SOB, cough Cardiovascular: Negative for chest pain, palpitations Gastrointestinal: Negative abdominal pain, nausea, vomiting, diarrhea Genitourinary: Negative for difficulty urinating, hematuria, dysuria Musculoskeletal: Negative for neck pain, back pain, myalgia, + neck pain Skin: Negative for rash, itching Neurological: Negative for VELOZ, dizziness, weakness, numbness, tingling Psychiatric: Negative for SI, hallucinations, anxiety Vitals: 01/18/22 1215 BP: 136/82 Pulse: 81 Resp: 12 Temp: 98.1 ??F (36.7 ??C) SpO2: 100% Weight: 81.6 kg (180 lb) Height: 1.829 m (6') Exam: Constitutional: well developed, well nourished, no acute distress HENT: normocephalic, atraumatic, moist oral mucosa, conjunctiva normal Eyes: PERRL, EOMi Neck: supple, normal ROM, tenderness to palpation of the L occiput and orgin of L trapezius, no nuchal rigidity Cardiovascular: regular rate and rhythm, no murmur Respiratory: clear to auscultation bilaterally, no wheezes, no respiratory distress Abdomen: soft, non-tender, non-distended Musculoskeletal: no edema or deformities, TTP to the origin of the L trapezius Skin: warm, dry, no lesions Neurological: awake, alert&Ox4, moving all extremities, no focal motor/sensation deficits. Mental Status: awake, alert, orientedx3 Higher cerebral function: speech-non aphasic Cranial Nerves: II-XII intact. Motor Function: Bilateral upper and lower extremities- 5/5 Sensation Function: Bilateral face, upper and lower extremities- normal to light touch Coordination: Normal finger to nose bilaterally Psychiatric: mood and affect normal Medical Decision Makin. 51 year old male presenting to the ED with head and neck pain for three weeks Assessment and Plan: CT Head and C-spine, symptomatic management Results: Labs Reviewed - No data to display CT HEAD NON CONTRAST - suspected intracranial hemorrhage Final Result PROCEDURE: CT HEAD WO CONTRAST, CT CERVICAL SPINE WO CONTRAST, DATE/TIME OF EXAM: 01/18/2022 2:14 PM, LOCATION [facility] INDICATION: M54.2: Neck pain [...] Report dictated by Jon Terry MD, MD (associate professor of radiology). IMelodie MD have personally reviewed and interpreted this examination/study. > Interpreting Provider: Melodie Hernández MD on 01/18/2022 3:[address] CERVICAL SPINE NON CONTRAST - suspected c-spine fracture Final Result PROCEDURE: CT HEAD WO CONTRAST, CT CERVICAL SPINE WO CONTRAST, DATE/TIME OF EXAM: 01/18/2022 2:14 PM, LOCATION [facility] INDICATION: M54.2: Neck pain [...] spine. Report dictated by Jon Terry MD, (associate professor of radiology). IMelodie MD have personally reviewed and interpreted this examination/study. > Interpreting Provider: Melodie Hernández MD on 01/18/2022 3:50 PM ED course: The patient's Oxygen Saturation Monitor was interpreted by me. The reading was 99%. The patient wason RA at the time of the reading. This is interpreted as normal. 4:10 PM: Updated patient on negative CT Head and C-spine results. Discussed potential for migraine cocktail for symptomatic management, but patient states that he is comfortable with discharge. He states that he is reassured that his symptoms are not from an emergent etiology. He is amenable to trying another muscle relaxant at home and continuing plan for Ibuprofen, Tylenol, and lidocaine patches at home. 4:20 PM: Final read for CT C-spine shows degenerative disc disease with mild canal stenosis and disc bulge. Will have patient follow-up with PCP and Spine team. 4:22 PM: I have reviewed his diagnostic findings and he has had an opportunity to ask me any questions he has about care, diagnosis, and discharge plan. Patient is comfortable with the discharge plan. he will follow up as directed and will return to the ER if his condition worsens or if he developsother urgent concerns. Consult No Procedure done at this time No Ultrasound done at this time No CRITICAL CARE IN THE ED No Orders and Medicine administered during this encounter: Orders Placed This Encounter ??? CT HEAD NON CONTRAST - suspected intracranial hemorrhage ??? CT CERVICAL SPINE NON CONTRAST - suspected c-spine fracture ??? lidocaine (Lidoderm) 5 % patch ??? acetaminophen (Tylenol) 500 MG tablet ??? gabapentin (Neurontin) 100 MG capsule ??? baclofen (Lioresal) 10 MG tablet Medications - No data to display Clinical Impression: 1. Neck pain 2. Headache, unspecified headache type 3. Degenerative disc disease, cervical Disposition: Discharge By signing my name below, I, Lindsey Brewster, attest that this documentation has been prepared under the direction and in the presence of Dr. Dahl. Signed: Crow Mcnamara. The scribe's documentation has been prepared under my direction and personally reviewed by me, Zoila Dahl MD, in its entirety . I confirm that the note above accurately reflects all work, treatment , procedures and Medical Decision making performed by me. KING MACHINE TENDER * Jeremy Land RN - 01/18/2022 12:33 PM CDT Patient ambulatory to the ED. Pt states that he has been having pain to the left side of his neck and near the base of his skull on the left. He reports using multiple OTC medications, warm pack, andother remedies without relief. documented in this encounter Miscellaneous Notes * Clinical References KATHLEEN - Ella Hensley PA-C - 01/18/2022 4:25 PM CDT [id number] Headache, Unspecified A number of things can cause headaches. The cause of your headache isn?t clear. But it doesn?t seemto be a sign of any serious illness. Headache affects almost everyone at some time. It's the most common reason people miss days from work or school. You could have a tension headache or a migraine headache. Stress can cause a tension headache. This can happen if you tense the muscles of your shoulders, neck, and scalp without knowing it. If this stress lasts long enough, you may develop a tension headache. It's not clear why migraines occur, but certain things called triggers can raise the risk of having a migraine attack. Migraine triggers may include emotional stress or depression, or by hormone changes during the menstrual cycle. Other triggers include control pills and other medicines, alcohol or caffeine, foods with tyramine such as aged cheese or wine, eyestrain, weather changes, missed meals, and lack of sleep or oversleeping. Other causes of headache include: ?? Viral illness with high fever ?? Head injury with concussion ?? Sinus, ear, or throat infection ?? Dental pain and jaw joint (TMJ) pain More serious but less common causes of headache include stroke, brain hemorrhage, brain tumor, meningitis, and encephalitis. Home care Follow these tips when taking care of yourself at home: ?? Don?t drive yourself home if you were given pain medicine for your headache. Instead, have someone else drive you home. Try to sleep when you get home. You should feel much better when you wake up. ?? Apply heat to the back of your neck to ease a neck muscle spasm. Take care of a migraine headache by putting an ice pack on your forehead or at the base of your skull. ?? If you have nausea or vomiting, eat a light diet until your headache eases. ?? If you have a migraine headache, use sunglasses when in the daylight or around bright indoor lighting until your symptoms get better. Bright glaring light can make this type of headache worse. Follow-up care Follow up with your healthcare provider, or as advised. Talk with your provider if you have frequent headaches. They can help figure out a treatment plan. By knowing the earliest signs of headache, and starting treatment right away, you may be able to stop the pain yourself. When to seek medical advice Call your healthcare provider right away if any of these occur: ?? Your head pain suddenly gets worse after sexual intercourse or strenuous activity ?? Your head pain doesn?t get better within 24 hours ?? You aren?t able to keep liquids down (repeated vomiting) ?? Fever of 100.4??F (38??C) or higher, or as directed by your healthcare provider ?? Stiff neck ?? Extreme drowsiness, confusion, or fainting ?? Dizziness or dizziness with spinning sensation (vertigo) ?? Weakness in an arm or leg or one side of your face ?? You have trouble talking or seeing Last Reviewed Date: 2020 ?? [id number] The [employer]. All rights reserved. This information is not intended as a substitute for professional medical care. Always follow your healthcare professional's instructions. * Clinical References AVS - Ella Hensley PA-C - 01/18/2022 4:25 PM CDT Images from the original note were not included. [id number] Degenerative Disk Disease Spinal disks are gel-filled cushions between the bones, or vertebrae, of the spine. The disks act like shock absorbers. Over time, the disks may break down. This is called degenerative disk disease. This condition can affect the neck or back. It is one of the most common causes of low back pain. The pain often remains localized to the lower back or neck. Muscle spasm is often present and adds tothe pain. Disk degeneration is a natural part of aging. But it is not always painful. It may also occur as a result of repeated minor injuries from daily activities, sports, or accidents. It may also run in families. It may lead to osteoarthritis of the spine. Back pain related to disk disease may come and go. Or it may become chronic and last for months or years. The disk may bulge or rupture. This is called a slipped disk or herniated disk. That can put pressure on a nearby spinal nerve and cause neck or back pain that spreads down one arm or leg. X-rays, CT scan, or an MRI scan may help to diagnose this condition. For acute pain, treatment includes anti-inflammatory medicines, muscle relaxants, rest, ice, or heat. Strong prescription pain medicines, called opioids, may be needed for short-term treatment if pain suddenly gets worse. Opioid medicines can be addictive. So they are not advised for long-term pain management. Non-addictive types of medicines are preferred. Surgery is generally not used to treat this condition unless there is a complication. Home care ?? For neck pain: Use a comfortable pillow that supports the head and keeps the spine in a neutral position. Your head should not be tilted forward or backward. ?? For back pain: Don't sit for long periods of time. This puts more stress on the lower back than standing or walking. Starting a regular exercise program to strengthen the supporting muscles of thespine will make it easier to live with degenerative disk disease. ?? Apply an ice pack over the injured area for no more than 15 to 20 minutes. Do this every 3 to 6 hours for the first 24 to 48 hours. To make an ice pack, put ice cubes in a plastic bag that seals at the top. Wrap the bag in a clean, thin towel or cloth. Never put ice or an ice pack directly on the skin. Keep using ice packs to ease pain and swelling as needed. After 48 hours, apply heat (warm shower or warm bath) for 20 minutes several times a day, or switch between ice and heat. ?? You may use [id number] pain medicine to control pain unless another pain medicine was prescribed. If you have chronic liver or kidney disease or have ever had a stomach ulcer or GI bleeding,talk with your provider before using these medicines. Follow-up care Follow up with your healthcare provider as directed. If X-rays, a CT scan, or an MRI scan were done, you will be notified of any new findings that may affect your care. When to seek medical advice Contact your healthcare provider right away if any of these occur: ?? Increasing back or neck pain ?? Your foot drags when you walk, a condition called foot drop ?? You have new weakness, numbness, or pain in one or both arms or legs ?? Loss of bowel or bladder control ?? Numbness or tingling in the buttock or groin area Last Reviewed Date: 2021 ?? [id number] The [employer]. All rights reserved. This information is not intended as a substitute for professional medical care. Always follow your healthcare professional's instructions. documented in this encounter Plan of Treatment Not on file documented as of this encounter Goals Goal Patient Goal Type Associated Problems Recent Progress Patient-Stated? Author Medication Management General On track( 021 8:26 AM CDT) Kristin Padron RN Note: Expected end date: ongoing Interventions: Take all medications as prescribed Let your doctor know right away about any changes in your medications Make sure to request a refill of your medication at least one week prior to your last dose documented as of this encounter Procedures Procedure Name Priority Date/Time Associated Diagnosis Comments CT CERVICAL SPINE WO CONTRAST STAT 01/18/2022 2:13 PM CDT Neck pain CT HEAD WO CONTRAST STAT 01/18/2022 2 :13 PM CDT Neck pain documented in this encounter Results * CT CERVICAL SPINE NON CONTRAST - suspected c-spine fracture (01/18/2022 2:13 PM CDT) Anatomical Region Laterality Modality Spine Computed Tomogra phy 01/18/2022 2:21 PM CDT Impressions 01/18/2022 3:50 PM CDT IMPRESSION: 1.No acute intracranial hemorrhage, midline shift, or significant mass effect. 2.No evidence of acute fracture in the cervical spine. Report dictated by Jon Terry MD, MD (associate professor of radiology). I, Melodie Hernández MD have personally reviewed and interpreted this examination/study. > Interpreting Provider: Melodie Hernández MD on 01/18/2022 3:50 PM Narrative 01/18/2022 3:50 PM CDT PROCEDURE: ??CT HEAD WO CONTRAST, CT CERVICAL SPINE WO CONTRAST, DATE/TIME OF EXAM: ??01/18/2022 2:14 PM, LOCATION ??[facility] INDICATION: M54.2: Neck pain [...] CONTRAST,DATE/TIME OF EXAM: 01/18/2022 2:14 PM, LOCATION [facility] INDICATION: M54.2: Neck pain [...] Report dictated by Jon Terry MD, MD (associate professor of radiology). Melodie Matias MD have personally reviewed and [...] Report dictated by Jon Terry MD, MD (associate professor of radiology). IMelodie MD have personally reviewed and interpreted this examination/study. > Interpreting Provider: Melodie Hernández MD on 01/18/2022 3:50 PM Narrative 01/18/2022 3:50 PM CDT PROCEDURE: ??CT HEAD WO CONTRAST, CT CERVICAL SPINE WO CONTRAST, DATE/TIME OF EXAM: ??01/18/2022 2:14 PM, LOCATION ??[facility] INDICATION: M54.2: Neck pain [...] CONTRAST,DATE/TIME OF EXAM: 01/18/2022 2:14 PM, LOCATION [facility] INDICATION: M54.2: Neck pain [...] Report dictated by Jon Terry MD, MD (associate professor of radiology). IMelodie MD have personally reviewed and interpretedthis examination/study. > Interpreting Provider: Melodie Hernández MD on 01/18/2022 3:50 PM Efraín Mooney MD CT ORDERABLES documented in this encounter Visit Diagnoses Diagnosis Neck pain Cervicalgia Headache, unspecified headache type Degenerative disc disease, cervical Degeneration of cervical intervertebral disc documented in this encounter Care Teams Piercing Mill Operator Relationship Specialty Start Date End Date Jeimy Kathleen MD [address] [place] [phone] PCP - General Family Medicine 11/26/20 11/05/23 documented as of this encounter
--- OUTSIDE RECORDS SUMMARY | 2024-03-16 15:21 | XMS_ITS | Encounter Summary ---
Author Organization [facility] Address [address] [place] [address] Care Team Providers Care Mangle Roller Name Role Phone Helga Brewster APRN-REGISTERED NURSE BONE MARROW TRANSPLANT Primary Care Provider Encounter Details Date Type Department Care Team (Late st Contact Info) Description 11/06/2023 8:43 AM CDT - 11/06/2023 11:59 PM CDT Hospital Encounter [facility], [address] [place] [id number] Sergio Park MD [address] [facility] [place] [address] Discharge Disposition: Home or Self Care Social [...] No 11/28/2020 documented as of this encounter Medications at Time of Discharge Medication Sig Dispensed Refills Start Date End Date acetaminophen (Tylenol) 500 MG tablet Take 2 (two) tablets by mouth every 8 hours as needed for Pain Maximum allowable Acetaminophen amount = 4 Grams (4000 mg) / 24 hours. 30 tablet 01/18/2022 alfuzosin CR 24hr (Uroxatral) 10 MG tablet Take 1 (one) tablet by mouth once daily baclofen (Lioresal) 10 MG tablet Take 1 (one) tablet by mouth 3 times daily May cause drowsiness. 15 tablet 01/18/2022 cyclobenzaprine (FLEXERIL) 10 MG tablet Take 1 (one) tablet by mouth 3 times daily as needed for Muscle Spasms (pain) 90 tablet 12/30/2020 cyclobenzaprine (Flexeril) 5 MG tablet Take 1 (one) tablet by mouth 3 times daily as needed 30 tablet 11/06/2023 gabapentin (Neurontin) 100 MG capsule Take 1 (one) capsule by mouth 3 times daily 30 capsule 5 01/18/2022 HYDROcodone-acetamino phen (White) 5-325 MG tablet Take 1 tablet every day by oral route at bedtime. 11/02/2023 lidocaine (Lidoderm) 5 % patch Apply 1 (one) patch to skin once daily 15 patch 5 01/18/2022 pantoprazole EC (PROTONIX) 40 MG tablet Take 1 (one) tablet by mouth once daily 30 tablet 11/28/2020 penicillin v potassium (Veetids) 500 MG tablet Take 1 tablet every 6 hours by oral route for 10 days. 11/02/2023 documented as of this encounter Plan of [...] Procedure Name Priority Date/Time Associated Diagnosis Comments XR SPINE ENTIRE 2 OR 3VW Routine 11/06/2023 8:58 AM CDT Other back pain, unspecified chronicity documented in this encounter Results * XR Spine Entire [...] Visit Diagnoses Diagnosis Other back pain, unspecified chronicity documented in this encounter Care Teams Mangle Roller Relationship Specialty Start Date End Date Helga Brewster, LOCKSTITCH LINING SETTER-REGISTERED NURSE BONE MARROW TRANSPLANT [address] [place], [place] [phone] PCP - General Family Medicine 11/06/23 documented as of this encounter
--- OUTSIDE RECORDS SUMMARY | 2024-03-16 15:21 | XMS_ITS | Encounter Summary ---
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 Name Role Phone Jeimy Kathleen MD Primary Care Provider [phone] Reason for Visit * Reason Comments Pain Abdominal Pt ambulatory to ED with c/o L sided abd pain x2 days, pt denies n/v/d/c, pounding to sharp pain , +associated SOB with pain, constant, 9/10 pain, pt denies urinary issues, no issue with appetite, PMH bowel obstruction 10 years, gastric surgery at * Auth/Cert Specialty Diagnoses / Procedures Referred By Keke hewitt Referred To Contact Referral ID Status Reason Start Date Expiration Date Visits Re quested Visits Authorized [id number] 1 1 Encounter Details Date Type Department Care Team (Latest Contact Info) Description 11/26/2020 4:06 PM CDT - 11/29/2020 11:55 AM CDT Hospital Encounter [facility] [address] [place] [id number] Suleman Grissom MD [address] [facility] 2L DIV [place] [id number] Surgery General Discharge Disposition: Home or Self Care Social History Tobacco Use Types Packs/Day Years Used Date Smoking Tobacco: Every Day Cigarettes Smokeless Tobacco: Never Alcohol Use Standard Drinks/Week Comments Never 0 (1 standard drink = 0.6 oz pur e alcohol) Sex and Gender Information Value Date Recorded Sex Assigned at Not on file Gender Identity Not on file Sexual Orientation Not on file documented as of this encounter Last Filed Vital Signs Vital Sign Reading Time Taken Comments Blood Pressure 130/83 11/29/2020 11:07 AM CDT Pulse 72 11/29/2020 11:07 AM CDT Temperature 36.8 ??C (98.2 ??F) 11/29/2020 11:07 AM C DT Respiratory Rate 18 11/29/2020 11:07 AM CDT Oxygen Saturation 98% 11/29/2020 11:07 AM CDT Inhaled Oxygen Concentration - - Weight 83.9 kg (185 lb) 11/26/2020 3:45 PM CDT Height 182.9 cm (6') 11/26/2020 3:45 PM CDT Body Mass Index 25.09 11/26/2020 3:45 PM CDT documented in this encounter Functional [...] 11/28/2020 documented as of this encounter Discharge Summaries * Emmett Mosqueda MD - 11/28/2020 9:44 AM CDT Images from the original note were not included. Physician Discharge Summary Patient Name: Dinesh Dover Date of : 1970 Admit date: 11/26/2020 Discharge date: 11/29/2020 Admitting Physician: Suleman Grissom MD Discharging Physician: Erick Kuhn MD Admission Diagnosis Active Problems: Intestinal malrotation Discharge Diagnoses Same Admission Condition: fair Discharged Condition: good Indication for Admission: Dinesh Dover is a 50 year old male with PMHx of Gastroschisis s/p surgical repair, GERD who presents to [facility] ED today due to worsening LUQ abdominal pain. It started as a constant pain on Monday, two days prior to admission, with intermittent internal cramping pain every hour. This cramping pain increased in intensity and frequency by the time of admission, Hospital Course: In ED, his WBC 11.1, Cr 1.21 (1.1). Lactic acid 1.0, lipase 19. CT Abdomen obtained which showed intestinal malrotation with reversal of SMA and SMV relation. No volvulus or obstruction seen. There was also RLQ small bowel thickening, no mesenteric stranding. ACS was consulted for this intestinal ma lrotation. Due to his benign physical exam and HD stable, no surgical intervention was recommended.He was started on CLD on HD1, tolerated it well, and was advanced to regular diet on HD2. Small Bowel Follow Through (SBFT) imaging was performed, which did not show obstruction, and contrast reaching rectum in 90 minutes. He had slight increase in Cr 1.29 (1.14), possibly due to Zosyn or pre-renaletiologies. Cr failed to downtrend on HD3, and he was restarted on IVF. Urine lytes showed intrinsic MALA and his Zosyn was stopped. He tolerated diet, pain was well controlled, able to pass flatus, able to have BM, and was deemed fit for discharge on HD4. He was discharged with flexeril and lidocaine for scheduled pain, and oxycodone for breakthrough. He will follow up with our clinic next week. Procedures: none Consults: none Significant Diagnostic Studies: See hospital course Treatments: See hospital course Discharge Exam: General appearance: alert, cooperative, no distress Heart: regular rhythm, normal S1 and S2, without murmurs, rubs or gallops Lungs: breath sounds normal and symmetric; no rales or wheezes Abdomen: soft without mass, minimally tender, with normal bowel sounds. Prior surgical scars noted. Extremities: no clubbing, cyanosis or edema Disposition: Home Patient Instructions: Activity: activity as tolerated Diet: Regular diet Wound Care: None needed Follow-up with ACS next week 12/09 Discharge Medications: Current Discharge Medication List START taking these medications Instructions Authorizing Provider acetaminophen 500 MG tablet Commonly known as: Tylenol Quantity Dispensed: 100 tablet Take 2 (two) tablets by mouth every 8 hours as needed for Pain Maximum allowable Acetaminophen amount = 4 Grams (4000 mg) / 24 hours. Karen Montague MD cyclobenzaprine 10 MG tablet Commonly known as: Flexeril Quantity Dispensed: 90 tablet Take 1 (one) tablet by mouth 3 times daily as needed for Muscle Spasms (pain) Karen Montague MD lidocaine 5 % patch Commonly known as: Lidoderm Quantity Dispensed: 30 patch Apply 1 (one) patch to skin once daily Karen Montague MD oxyCODONE (immediate release) 5 MG tablet Commonly known as: Roxicodone Quantity Dispensed: 12 tablet Take 1 (one) tablet by mouth every 6 hours as needed If tylenol and flexeril not helpful Karen Montague MD pantoprazole EC 40 MG tablet Commonly known as: Protonix Quantity Dispensed: 30 tablet Take 1 (one) tablet by mouth once daily Karen Montague MD Patient Instructions Medication List START taking these medications acetaminophen 500 MG tablet Commonly known as: Tylenol Take 2 (two) tablets by mouth every 8 hours as needed for Pain Maximum allowable Acetaminophen amount = 4 Grams (4000 mg) / 24 hours. cyclobenzaprine 10 MG tablet Commonly known as: Flexeril Take 1 (one) tablet by mouth 3 times daily as needed for Muscle Spasms (pain) lidocaine 5 % patch Commonly known as: Lidoderm Apply 1 (one) patch to skin once daily oxyCODONE (immediate release) 5 MG tablet Commonly known as: Roxicodone Take 1 (one) tablet by mouth every 6 hours as needed If tylenol and flexeril not helpful pantoprazole EC 40 MG tablet Commonly known as: Protonix Take 1 (one) tablet by mouth once daily Where to Get Your Medications These medications were sent to [id number] - [address] [facility] [id number] [facility] [place] [address] [facility] [address] ?? acetaminophen 500 MG tablet ?? cyclobenzaprine 10 MG tablet ?? lidocaine 5 % patch ?? oxyCODONE (immediate release) 5 MG tablet ?? pantoprazole EC 40 MG tablet Discharge Instructions None Emmett Mosqueda MD PGY1 11/28/2020 1:06 PM Associated attestation - Erick Kuhn MD - 12/01/2020 10:37 AM CDT Patient seen and examined with the resident. Please see note for further details. I confirm history, exam, assessment and plan. Erick Kuhn MD documented in this encounter Discharge Instructions * Discharge Instructions* Emmett Mosqueda MD - 11/28/2020 1:13 PM CDT No operation was deemed necessary while you were inpatient, but if you would like to follow up in clinic with us, please call to schedule an appointment at [phone]. Address: [address] [place] [address], 2 floor, Surgery Clinic. documented in this encounter Medications at Time of Discharge Medication Sig Dispensed Refills Start Date End Date pantoprazole EC (PROTONIX) 40 MG tablet Take 1 (one) tablet by mouth once daily 30 tablet 11/28/2020 acetaminophen (TYLENOL) 500 MG tablet Take 2 (two) tablets by mouth every 8 hours as needed for Pain Maximum allowable Acetaminophen amount = 4 Grams (4000 mg) / 24 hours. 100 tablet 11/28/2020 01/18/2022 cyclobenzaprine (FLEXERIL) 10 MG tablet Take 1 (one) tablet by mouth 3 times daily as needed for Muscle Spasms (pain) 90 tablet 1 11/28/2020 12/30/2020 lidocaine (LIDODERM) 5 % patch Apply 1 (one) patch to skin once daily 30 patch 11/29/2020 12/30/2020 oxyCODONE, immediate release, (ROXICODONE) 5 MG tablet Take 1 (one) tablet by mouth every 6 hours as needed If tylenol and flexeril not helpful 12 tablet 11/28/2020 01/18/2022 documented as of this encounter Progress Notes * Emmett Mosqueda MD - 11/28/2020 5:46 AM CDT [facility] Acute Care Surgery Progress Note Admit: 11/26/2020 4:06 PM Date: November 28, 2020 Length of Stay: 1 Attending: Suleman Grissom MD POD: History: Dinesh Dover is a 50 year old male with PMHx of gastroschisis s/p surgical repair, GERD, Chong's esophagus, ventral hernia repair with mesh, and SBO who presents to [facility] ED today due to worsening LUQ abdominal pain. The pain started on Monday as a constant LUQ but is accompanied by intermittent worsening of pain in LUQ that he describes as an internal cramp . The dull pain occurs every 15 minutes and typicallygoes away after a 30 seconds or so. Aggravated with big changes in movement with no relieving factors. He states that this is a new pain that he has not experienced before. The pain does not radiate and has increased in frequency in the 2 days and became unbearable for the patient and he decided topresent to the ED. Denies hematochezia, hematemesis, nausea, vomiting, weight loss, diarrhea. Just endorses LUQ pain with increased reflux symptoms in past 2 days. In ED, his WBC 11.1, Cr 1.21 (1.1). Lactic acid 1.0, lipase 19. CT Abdomen obtained which showed intestinal malrotation with reversal of SMA and SMV relation. No volvulus or obstruction seen. There was also RLQ small bowel thickening, no mesenteric stranding. ACS was consulted for this intestinal ma lrotation SUBJECTIVE: - NAEON. AFFVSS on RA - pain improved, continues to have cramps in LUQ - tolerated CLD - BMx2, passing gas - Cr increase 1.29 (1.14) - WBC stable 8.4 (8.2) Scheduled Medications: ??? 0.9% NaCl 3 mL Intracatheter q8h ??? acetaminophen 1,000 mg Oral q8h ??? heparin 5,000 Units Subcutaneous q8h ??? iopamidol Oral Contrast - Once ??? iopamidol Intravenous Contrast - Once ??? pantoprazole 40 mg Intravenous QDAY ??? piperacillin-tazobactam 3.375 g Intravenous q8h Continuous Medications: dextrose 5% and 0.45% NaCl with KCl 20 mEq, , Last Rate: 125 mL/hr at 11/27/20 1629 PRN Medications: 0.9% NaCl, 1-10 mL, PRN HYDROmorphone, 0.2 mg, q3h PRN Or HYDROmorphone, 0.4 mg, q3h PRN Vital Signs: BP 120/84 Pulse 50 Temp 97.8 ??F (36.6 ??C) (Axillary) Resp 18 Ht 6' Wt 185 lb SpO2 98% BMI 25.09 kg/m2 Temp: [97.8 ??F (36.6 ??C)] 97.8 ??F (36.6 ??C) Pulse: [50-63] 50 Resp: [18] 18 BP: (102-134)/(76-100) 120/84 Diet: DIET CLEAR LIQUID Is&Os: Date 11/27/20699 - 11/28/2065811/28/20699 - 11/29/20 0659 Shift 4067-0575 7795-1108 24 Hour Total 9871-3599 7968-5332 24 Hour Total INTAKE P.O. 1159.4 1159.4 Shift Total(mL/kg) 1159.4(13.8) 1159.4(13.8) OUTPUT Shift Total(mL/kg) NET 1159.4 1159.4 Weight (kg) 83.9 83.9 83.9 83.9 83.9 83.9 Physical Exam: General: Lying on bed in NAD, interactive, AOx3 HEENT: NCAT, EOMI, conjunctiva clear, septum midline, MMM, hearing grossly intact to voice Resp: Nonlabored on RA, speaks in full sentences CV: RRR, WWP Abdomen: soft, non-distended Mild TTP LUQ. Non-peritonitic, no rebound or guarding. Well-healed surgical scars Extremities: No CCE Labs: Recent Labs Component Name 11/28/20 0152 11/27/20 0343 11/26/20 1611 WBC 8.4 8.2 11.1* HGB 16.0 15.2 16.5 HCT 47.2 44.8 47.9 MCV 87.9 87.2 87.6 Recent Labs Component Name 11/28/20 0152 11/27/20 0343 11/26/20 1611 NA 142 139 140 CL 107 106 108* CO2 24 26 23 BUN 11 16 16 CREATININE 1.29* 1.14 1.21* CALCIUM 9.0 9.1 9.6 MAGNESIUM 2.3 2.2 - PHOS 4.0 3.7 - Recent Labs Component Name 11/26/20 1611 04/19/17 0754 PROT 7.1 6.2 ALB 4.0 3.7 TBILI 0.8 0.9 AST 22 15 ALT 34 18 ALKPHOS 89 76 Recent Labs Component Name 04/19/17 0406 INR 1.1 PTT 28.8 Imagin/9 CT AP: Prelim read There is intestinal malrotation with reversal dilatation of SMA and SMV. There is no volvulus or obstruction. There is moderate wall thickening of a short segment of small bowel loop/jejunum in the right lowerquadrant (series 3, image 74) without surrounding mesenteric stranding. There are multiple mesenteric lymph nodes, nonspecific. Findings may represent segmental enteritis. There is moderate stool burden in the ascending and transverse colon. The appendix is not visualized, however there is no signs of inflammation the right lower quadrant. There is no hydronephrosis or nephrolithiasis. There are a few scattered colon diverticula without evidence of diverticulitis. The prostate is enlarged. The urinary bladder is normal. ASSESSMENT: Dinesh Dover is a 50 year old male PMHx of gastroschisis, GERD, Chong's esophagus, ventral hernia repair with mesh and SBO who presented to [facility] ED for worsening intermittent LUQ pain concerning for intestinal malrotation. No concern for surgical intervention at this time given downtrending labs and unremarkable PE findings. PLAN: Neuro: - Tylenol IV 1000mg q8hr - flexeril TID - Oxy 10 q6PRN - DC Dilaudid Cardiac: - Vitals q4hr, continue monitoring. Pulm: - IS, encourage OOB, AAT GI: - Serial abdominal exams - Small bowel follow though - H. Pylori antigen feces - Strict I/O's - PPI FEN: - DC Fluids - advanced to regular diet - Replace electrolytes PRN Renal: - Strict I/O's - elevated Cr, continue to trend Cr, pre-renal vs. Zosyn reaction Heme: - SQH for VTE ppx - Daily labs ID: - Zosyn for abx ppx Endo: - GUNNAR MSK: - AAT, Encourage OOB Ppx: SCDs, SQH L/T/D: 2 PIV Dispo: floor. Home meds re-started: none Home meds held: none Emmett Mosqueda MD, PGY1 November 28, 2020 5:46 AM Associated attestation - Erick Kuhn MD - 11/28/2020 11:53 AM CDT Patient seen and examined with the resident. Please see note for further details. I confirm history, exam, assessment and plan. In addition I note: -Patient with minimal pain, improved from admission -WBC normal -AVSS -Tolerating CLD, will advance as tolerated -Will trend creatinine -If creatinine improved and patient tolerating regular diet, may consider D/C later today Erick Kuhn MD 11/28/2020 * Anu Wright RN - 11/27/2020 9:00 PM CDT Problem: Tobacco Use Goal: Inpatient tobacco-use cessation counseling participation Outcome: Progressing * Pearl Herrera RN - 11/27/2020 5:00 PM CDT Chart accessed due to pending admission. * Karen Montague MD - 11/27/2020 11:30 AM CDT [facility] Acute Care Surgery Progress Note Admit: 11/26/2020 4:06 PM Date: November 27, 2020 Length of Stay: 0 Attending: No att. providers found POD: History: Dinesh Dover is a 50 year old male with PMHx of gastroschisis s/p surgical repair, GERD, Chong's esophagus, ventral hernia repair with mesh, and SBO who presents to [facility] ED today due to worsening LUQ abdominal pain. The pain started on Monday as a constant LUQ but is accompanied by intermittent worsening of pain in LUQ that he describes as an internal cramp . The dull pain occurs every 15 minutes and typicallygoes away after a 30 seconds or so. Aggravated with big changes in movement with no relieving factors. He states that this is a new pain that he has not experienced before. The pain does not radiate and has increased in frequency in the 2 days and became unbearable for the patient and he decided topresent to the ED. Denies hematochezia, hematemesis, nausea, vomiting, weight loss, diarrhea. Just endorses LUQ pain with increased reflux symptoms in past 2 days. In ED, his WBC 11.1, Cr 1.21 (1.1). Lactic acid 1.0, lipase 19. CT Abdomen obtained which showed intestinal malrotation with reversal of SMA and SMV relation. No volvulus or obstruction seen. There was also RLQ small bowel thickening, no mesenteric stranding. ACS was consulted for this intestinal ma lrotation SUBJECTIVE: - NAEON. Pain well-controlled/improved with medications. Afebrile, HDS - passing gas, last BM yesterday morning - Continues to deny n/v, reports hunger - WBC 8.2 on ABX OBJECTIVE: -WBC downtrending 8.2 (11.1) -Cr downtrending 1.14 (1.21) -LA downtrending 0.8.(1.0) Scheduled Medications: ??? 0.9% NaCl 3 mL Intracatheter q8h ??? acetaminophen 1,000 mg Oral q8h ??? heparin 5,000 Units Subcutaneous q8h ??? iopamidol Intravenous Contrast - Once ??? pantoprazole 40 mg Intravenous QDAY ??? piperacillin-tazobactam 3.375 g Intravenous q8h Continuous Medications: dextrose 5% and 0.45% NaCl with KCl 20 mEq, , Last Rate: 125 mL/hr at 11/27/20 0812 PRN Medications: 0.9% NaCl, 1-10 mL, PRN HYDROmorphone, 0.2 mg, q3h PRN Or HYDROmorphone, 0.4 mg, q3h PRN Vital Signs: BP 116/91 Pulse 63 Temp 97.8 ??F (36.6 ??C) (Oral) Resp 18 Ht 6' (1.829 m) Wt 185 lb (83.9 kg) FaL021% BMI 25.09 kg/m2 Temp: [97.8 ??F (36.6 ??C)-99.1 ??F (37.3 ??C)] 97.8 ??F (36.6 ??C) Pulse: [62-90] 63 Resp: [18] 18 BP: (102-129)/(79-93) 116/91 Diet: DIET NPO Except: ICE CHIPS, SIPS WITH MEDS Is&Os: Physical Exam: General: Lying on bed in NAD, interactive, AOx3 HEENT: NCAT, EOMI, conjunctiva clear, septum midline, MMM, hearing grossly intact to voice Resp: Nonlabored on RA, speaks in full sentences CV: RRR, WWP Abdomen: soft, non-distended Mild TTP LUQ. Non-peritonitic, no rebound or guarding. Well-healed surgical scars Extremities: No CCE Labs: Recent Labs Component Name 11/27/20 03411/26/20 16104/19/17 0224 WBC 8.2 11.1* 8.6 HGB 15.2 16.5 16.2 HCT 44.8 47.9 47.1 MCV 87.2 87.6 88.9 Recent Labs Component Name 11/27/20 0343 11/26/20 16104/19/17 0754 NA 139 140 140 CL 106 108* 105 CO2 26 23 27 BUN 16 16 14 CREATININE 1.14 1.21* 1.1 CALCIUM 9.1 9.6 9.3 MAGNESIUM 2.2 - - PHOS 3.7 - - Recent Labs Component Name 11/26/20 16104/19/17 0754 PROT 7.1 6.2 ALB 4.0 3.7 TBILI 0.8 0.9 AST 22 15 ALT 34 18 ALKPHOS 89 76 Recent Labs Component Name 04/19/17 0406 INR 1.1 PTT 28.8 Imagin/9 CT AP: Prelim read There is intestinal malrotation with reversal dilatation of SMA and SMV. There is no volvulus or obstruction. There is moderate wall thickening of a short segment of small bowel loop/jejunum in the right lowerquadrant (series 3, image 74) without surrounding mesenteric stranding. There are multiple mesenteric lymph nodes, nonspecific. Findings may represent segmental enteritis. There is moderate stool burden in the ascending and transverse colon. The appendix is not visualized, however there is no signs of inflammation the right lower quadrant. There is no hydronephrosis or nephrolithiasis. There are a few scattered colon diverticula without evidence of diverticulitis. The prostate is enlarged. The urinary bladder is normal. ASSESSMENT: Dinesh Dover is a 50 year old male PMHx of gastroschisis, GERD, Chong's esophagus, ventral hernia repair with mesh and SBO who presented to [facility] ED for worsening intermittent LUQ pain concerning for intestinal malrotation. No concern for surgical intervention at this time given downtrending labs and unremarkable PE findings. PLAN: Neuro: Tylenol IV 1000mg q8hr and Dilaudid 0.2mg PRN for pain control Cardiac: - Vitals q4hr, continue monitoring. Pulm: - IS, encourage OOB, AAT GI: - Serial abdominal exams - Small bowel follow though - H. Pylori antigen feces - Strict I/O's - PPI FEN: - mIVF: D51/2NSw/KCL at 125 - NPO, CLD following SBFT - Replace electrolytes PRN Renal: - Strict I/O's Heme: - SQH for VTE ppx - Daily labs ID: - Zosyn for abx ppx Endo: - no concerns MSK: - AAT, Encourage OOB Ppx: SCDs, SQH L/T/D: 2 PIV Dispo: Likely home when medically appropriate Home meds re-started: none Home meds held: none I have assessed the patient and my in-house supervising physician is Dr. Wing. My attending is Dr. Kuhn. This note was completed with the assistance of Isai Lomeli MS3. I have reviewed this documentation and agree with the exam, assessment and plan and have edited as appropriate. Karen Montague MD, PGY3 November 27, 2020 11:30 AM Associated attestation - Erick Kuhn MD - 11/27/2020 11:45 AM CDT Patient seen and examined with the resident. Please see note for further details. I confirm history, exam, assessment and plan. Erick Kuhn MD 11/27/2020 documented in this encounter H&P Notes * Emmett Mosqueda MD - 11/26/2020 10:06 PM CDT Images from the original note were not included. [facility] Surgery Consult History and Physical Patient Name: Dinesh Dover Age/Gender: 50 year old male : 1970 Date: 11/26/2020 Reason for Consult: Internal Malrotation HPI: Dinesh Dover is a 50 year old male with PMHx of Gastroschisis s/p surgical repair, GERD who presents to [facility] ED today due to worsening LUQ abdominal pain. The pain started on Monday as a constant LUQ, but he would get intermittent worsening of pain in LUQ that he describes as an interrnal cramp. The sharp pain occurs every 15 minutes and typically goes away after a 30 seconds or so. Aggravated with big changes in movement with no relieving factors. The pain increased in frequency in the 2 days and became unbearable for the patient and he decidedto present to the ED. Denies hematochezia, hematemesis, nausea, vomiting, weight loss, diarrhea. Just endorses LUQ pain with increased reflux symptoms in past 2 days. In ED, his WBC 11.1, Cr 1.21 (1.1). Lactic acid 1.0, lipase 19. CT Abdomen obtained which showed intestinal malrotation with reversal of SMA and SMV relation. No volvulus or obstruction seen. There was also RLQ small bowel thickening, no mesenteric stranding. ACS was consulted for this intestinal ma lrotation PMH: gastroschisis s/p repair as , GERD, SBO 2011 at [facility] (no records) PSH: gastroschisis repair 1971, ventral hernia repair 1996 with mesh Medications: denies, see below for complete list. Allergies: NKDA SocHx: 1/2pack/day for 25 years, denies alcohol and recreational drugs FMH: history of polyps in family, has yearly colonoscopies (prior have all been benign). Grandmother had colon cancer No past medical history on file. No past surgical history on file. No Known Allergies Outpatient Medications: No current outpatient medications on file prior to encounter. Inpatient Medications: Current Facility-Administered Medications Medication ??? 0.9% NaCl injection 3 mL And ??? 0.9% NaCl injection 1-10 mL ??? iopamidol (Isovue 370) 76 % contrast No current outpatient medications on file. Social History Tobacco Use ??? Smoking status: Current Every Day Smoker Packs/day: 1.00 Types: Cigarettes ??? Smokeless tobacco: Never Used Substance Use Topics ??? Alcohol use: Never ??? Drug use: Never No family history on file. REVIEW OF SYSTEMS Constitutional: As per HPI Eyes: Negative for visual changes CV: Negative for chest pain Pulm: Negative for dyspnea GI: As per HPI : Negative for dysuria, hematuria MSK: Negative for myalgias, arthralgias Skin: Negative for skin changes Neuro: Negative for weakness Remainder of ROS negative unless documented in HPI PHYSICAL EXAM Vitals: 11/26/20 1545 BP: 129/79 Pulse: 90 Resp: 18 Temp: 99.1 ??F (37.3 ??C) SpO2: 99% Weight: 185 lb Height: 6' Estimated body mass index is 25.09 kg/m?? as calculated from the following: Height as of this encounter: 6'. Weight as of this encounter: 185 lb. Gen: NAD HEENT: AT/NC, EOMI, oropharynx clear CV: RRR Pulm: Nonlabored respirations Abd: Soft, non-tender/ minimally distended. No guarding or rebound. MSK: WWP, no c/c/e Neuro: Moving all extremities spontaneously, no focal deficits Psych: Appropriate mood and affect Recent Labs: CBC: Recent Labs Component Name 11/26/20 1611 WBC 11.1* HGB 16.5 HCT 47.9 BMP: Recent Labs Component Name 11/26/20 1611 NA 140 CL 108* CO2 23 BUN 16 CREATININE 1.21* Recent Labs Component Name 04/19/17 0406 PT 13.7 PTT 28.8 INR 1.1 Imagin/9 CT AP: Prelim read There is intestinal malrotation with reversal dilatation of SMA and SMV. There is no volvulus or obstruction. There is moderate wall thickening of a short segment of small bowel loop/jejunum in the right lowerquadrant (series 3, image 74) without surrounding mesenteric stranding. There are multiple mesenteric lymph nodes, nonspecific. Findings may represent segmental enteritis. There is moderate stool burden in the ascending and transverse colon. The appendix is not visualized, however there is no signs of inflammation the right lower quadrant. There is no hydronephrosis or nephrolithiasis. There are a few scattered colon diverticula without evidence of diverticulitis. The prostate is enlarged. The urinary bladder is normal. Assessment and Plan: Dinesh Dover is a 50 year old male PMHx of gastroschisis, GERD, and SBO, who presents to [facility] ED for worsening intermittent LUQ pain concerning for intestinal malrotation. WBC and Cr elevated butotherwise labs unremarkable. - no acute surgical intervention at this time - recommend admission for observation and serial abdominal exams - will give LR bolus and start D51/2NSw/KCL@75 due to elevated Cr and low PO intake for past few days - zosyn for IV abx - NPO for bowel rest - acetaminophen and dilaudid PRN for pain Emmett Mosqueda MD PGY1 11/26/2020 10:13 PM Associated attestation - Suleman Grissom MD - 11/27/2020 11:28 AM CDT Intestinal non-rotation is expected in patients with history of gastroschisis. No immediate indication for surgery. Will follow clinically and consider SBFT depending on clinical course. documented in this encounter ED Notes * Germania Armas RN - 11/27/2020 5:38 PM CDT Report given to EMERALD Hood. All questions answered. RN states she will be down shortly to get patient. * Zayra Hollins MD - 11/27/2020 2:52 PM CDT ASSUMED CARE NOTE Patient signed out to me by Dr. Barahona at 3:10 PM. Briefly, Dinesh Dover is a 50 year old male is being evaluated for abdominal pain. The patient has a hx of gastroschisis repair and SBO. At this time the patient's condition is Stable. Thus far, studies reveal intestinal malrotation with reversal of SMA and SMV per CT of abdomen. Pending ACS bed availability. Plan is reassessment, admit to ACS. Vitals: 11/27/20 1100 11/27/20 1130 11/27/20 1200 11/27/20 1230 BP: 116/91 114/79 110/79 111/76 Pulse: Resp: Temp: SpO2: 96% 95% 95% 93% Weight: Height: ED Course: 3:28 PM: Patient not in room, will reassess. 4:51 PM: Patient at this time has a bed assigned with ACS service. Patient to be transferred to their inpatient bed. Clinical Impression: 1. LUQ pain 2. Intestinal malrotation Disposition: Admit to ACS By signing my name below, I, Delia Ellis, attest that this documentation has been prepared under the direction and in the presence of Dr. Hollins. Signed: Crow Pastrana. I, Dr. Hollins, personally performed the services described in this documentation. All medical record entries made by the scribe were at my direction and in my presence. I have reviewed the chart and agree that the record reflects my personal performance and is accurate and complete. Electronically signed: Zayra Hollins MD, MPH * Germania Armas RN - 11/27/2020 1:20 PM CDT Patient taken for serial abdominal x-rays * Yani Booth RN - 11/27/2020 10:06 AM CDT Patient report given to EMERALD Solo. Answered all questions, no concerns from nurse. Will turnover care at this time. * Yani Booth RN - 11/27/2020 8:37 AM CDT Pt ambulatory to the at this time. NAD noted. * Yani Booth RN - 11/27/2020 8:24 AM CDT Pt resting in bed at this time, NAD noted. * Yani Booth RN - 11/27/2020 7:21 AM CDT Received report from EMERALD Foote. Assumed care of patient at this time. * Bradley Barahona MD - 11/27/2020 6:58 AM CDT ASSUME CARE NOTE Patient signed out to me by Dr. Anderson at 7:00 AM. Briefly, the patient is being evaluated for left sided abdominal pain with a CT completed in the EDthat shows intestinal malrotation with reversal of SMA and SMV. The patient has a history of gastroschisis repair and SBO. The plan at present is admit to ACS. ED Course: 8:00 AM -- Patient is stable, resting. 3:00 PM -- ITZEL to Dr. Hollins pending bed availability. Vitals: 11/27/20 1100 11/27/20 1130 11/27/20 1200 11/27/20 1230 BP: 116/91 114/79 110/79 111/76 Pulse: Resp: Temp: SpO2: 96% 95% 95% 93% Weight: Height: Estimated body mass index is 25.09 kg/m?? as calculated from the following: Height as of this encounter: 1.829 m (6'). Weight as of this encounter: 83.9 kg (185 lb). At this time the following studies are : Labs Reviewed CBC W AUTO DIFFERENTIAL - Abnormal; Notable for the following components: Result Value WBC 11.1 (*) MPV 8.5 (*) Basophils Absolute 0.09 (*) All other components within normal limits COMPREHENSIVE METABOLIC PANEL - Abnormal; Notable for the following components: Creatinine 1.21 (*) Chloride 108 (*) eGFR by CKD-EPI 70 (*) All other components within normal limits CBC W AUTO DIFFERENTIAL - Abnormal; Notable for the following components: MPV 8.8 (*) All other components within normal limits BASIC METABOLIC PANEL (CALCIUM TOTAL) - Abnormal; Notable for the following components: eGFR by CKD-EPI 76 (*) All other components within normal limits SARS-COV-2 (COVID-19)+INFLU A+B PCR RAPID - Normal Narrative: Influenza assay performed by Nucle[employer]. Results do not exclude the possibility of a mixed viral infection. NOTE: Detecting and identifying specific viral nucleic acids from individuals exhibiting signs and symptoms of respiratory infection aids in the diagnosis of respiratory infection, if used in conjunction with other clinical and laboratory findings. The results of this test should not be used as thesole basis for diagnosis, treatment, or patient management decisions. This nucleic acid amplification assay performance was validated by [facility]. This test has been authorized by the Food and Drug administration (FDA)under an Emergency Use Authorization (EUA). This test has been validated [...] this EUA assay are available upon request. LIPASE BLOOD - Normal URINALYSIS W/MICROSCOPIC NO CULTURE - Normal Narrative: LACTIC ACID BLOOD - Normal TROPONIN I - Normal MAGNESIUM BLOOD - Normal PHOSPHORUS BLOOD - Normal LACTIC ACID BLOOD - Normal HELICOBACTER PYLORI ANTIGEN FECES CT ABDOMEN PELVIS W CONTRAST Final Result Procedure Information DATE: 11/26/2020 7:52 PM EXAMINATION: [...] SOOD M.D. on 11/27/2020 1:55 PM . [place] SMALL BOWEL SERIES (Results Pending) No results found. Clinical Impression: 1. LUQ pain 2. Intestinal malrotation Disposition: Admit to ACS By signing my name below, Florencio, Deepthi Maldonado, attest that this documentation has been prepared underthe direction and in the presence of Dr. Barahona. Signed: Crow Blake. I, Dr. Barahona, personally performed the services described in this documentation. All medical record entries made by the abhayibe were at my direction and in my presence. I have reviewed the chart andagree that the record reflects my personal performance and is accurate and complete. * Dary Gordon RN - 11/27/2020 6:13 AM CDT Report given to Paris CORBIN for continuity of care * Fahad Luis RN - 11/27/2020 5:59 AM CDT Bed: [facility] Expected date: Expected time: Means of arrival: Comments: AC 10 * Luis M Anderson MD - 11/27/2020 5:54 AM CDT ASSUMED CARE NOTE Patient signed out to me by Dr. Nieves at 5:50 AM. Dinesh Dover is a 50 year old male with a past mediacl history of gastroschisis repair and SBO is being evaluated for persistent left-sided abdominal pain. Pt denies N/V and has been passing BMs.CT A/P shows intestinal malrotation with reversal of SMA and SMV. Pt is admitted to ACS. At this time the patient's condition is Stable. Pending bed availability. Plan is reassessment and admission to ACS. Vitals: 11/27/20 0515 11/27/20 0530 11/27/20 0600 11/27/20 0610 BP: 125/80 102/92 Pulse: Resp: Temp: 97.8 ??F (36.6 ??C) SpO2: 97% 95% 98% Weight: Height: 6:10 AM - Pt resting comfortably in bed. VSS. 7:00 AM - Care assumed by Dr. Barahona. Condition at this time is stable. Disposition is admission to ACS, pending bed availability. Clinical Impression: 1. LUQ pain 2. Intestinal malrotation Disposition: ITZEL to Dr. Barahona By signing my name below, Florencio, Romel Webb, attest that this documentation has been prepared under the direction and in the presence of Dr. Anderson. Signed: Crow Poole. I, Dr. Anderson, personally performed the services described in this documentation. All medical record entries made by the scribe were at my direction and in my presence. I have reviewed the chart and agree that the record reflects my personal performance and is accurate and complete. Electronically signed: Dr. Anderson Date: 11/27/20 Time: 6:43 AM * Paz Nieves MD - 11/26/2020 10:14 PM CDT ASSUMED CARE NOTE Patient signed out to me by Dr. Lion at 10:14 PM. Briefly, Dinesh Dover is a 50 year old male with a PMHx of Gastroschisis repair who is being evaluated for left sided abdominal pain. Patient states that his symptoms have been progressively worsening over the past two days. He denies any nausea, vomiting, or diarrhea. He states that he has been passing gas regularly. CT A/P revealed intestinal malrotation with reversal of SMA and SMV relation. ACS has been consulted and agrees to come see the patient. At this time the patient's condition is Stable. Thus far, studies reveal mesenteric malrotation Plan is pending ACS recommendations ED Course: 1:16 AM: After discussion with ACS, the patient will be admitted to their service for further management of care of persistent abdominal pain and mesenteric rotation under Dr. Grissom. -I have reviewed the diagnostic findings with the patient and they have had an opportunity to ask me any questions they have about care, diagnosis, and reason for admission. The patient states understanding and agrees to admission. Patient has been signed out to Dr. Anderson. Pending inpatient bed availabilty. Clinical Impression: 1. LUQ pain 2. Intestinal malrotation Disposition: Admit to ACS ITZEL to Dr. Anderson, pending inpatient bed availability By signing my name below, I, Lindsey Brewster, attest that this documentation has been prepared under the direction and in the presence of Dr. Nieves. Signed: Crow Mcnamara. I, Dr. Nieves, personally performed the services described in this documentation. All medical record entries made by the scribe were at my direction and in my presence. I have reviewed the chart and agree that the record reflects my personal performance and is accurate and complete. * Liliya Moise - 11/26/2020 9:46 PM CDT Pt being seen by Monet HURLEY at this time. * Julio César Cuevas - 11/26/2020 9:41 PM CDT Pt sitting in waiting room no needs at this time. * Monet Vicente APRN-JENNIFER - 11/26/2020 6:19 PM CDT Physician Transition Note 6:19 PM Care assumed from ARIELA Parrish Briefly, this is a 50 year old male with a PMHx of GERD and SBO who presents with c/o LUQ and LLQ pain x2 days. States that the pain is different from when he had a SBO in the past. Abdominal pain isstabbing in nature and nonradiating. Has not had difficulty having a BM, no trouble urinating. Has not taken any medication for relief of symptoms. Chief Complaint Patient presents with ??? Pain Abdominal Pt ambulatory to ED with c/o L sided abd pain x2 days, pt denies n/v/d/c, pounding to sharp pain ,+associated SOB with pain, constant, 9/10 pain, pt denies urinary issues, no issue with appetite, PMH bowel obstruction 10 years, gastric surgery at Significant Findings: Current labs unremarkable. Workup (labs/Imaging) pending: CT a/p Working Differential: gastritis vs colitis vs diverticulitis vs diverticulosis vs kidney stone vs cystitis vs other Current Plan/Dispo: Pending CT results Please refer to previous Physician Stair Builder note for further details. BP 129/79 Pulse 90 Temp 99.1 ??F (37.3 ??C) Resp 18 Ht 1.829 m (6') Wt 83.9 kg (185 lb) SpO2 99% BMI 25.09 kg/m2 ED Course 1814: Assumed care of pt from ARIELA Cummings 2199: CT shows intestinal malrotation of the SMA and SMV with reverse dilatation. ACS paged, will come see pt. Pt will be admitted to ACS under Dr. Corbett. 0133: ACS took over care of pt. Dispo: Admit to ACS. * Deborah Lion MD - 11/26/2020 4:31 PM CDT Bed: INTAKE 1 Expected date: Expected time: Means of arrival: Comments: [facility] clinic * Domi Webb PA-C - 11/26/2020 4:25 PM CDT Dinesh Dover [id number] [facility] EMERGENCY DEPARTMENT History Chief Complaint Patient presents with ??? Pain Abdominal Pt ambulatory to ED with c/o L sided abd pain x2 days, pt denies n/v/d/c, pounding to sharp pain ,+associated SOB with pain, constant, 9/10 pain, pt denies urinary issues, no issue with appetite, PMH bowel obstruction 10 years, gastric surgery at Dinesh Dover is a 50 yo male PMH GERD and reported SBO/partial SBO around 2011 presenting with LUQ and LLQ pain x 2 days. States he woke up with the pain which is described as sharp, stabbing, nonradiating, and constant. Today's pain is different than the pain he experienced with his prior obstruction. The pain is worse with certain movements and deep inspiration, and he hasn't taken any medication for pain relief. Last BM was yesterday and normal for pain - denies blood in stool or pain withdefecation. He presents today because the pain hasn't gone away. Smokes cigarettes 1/2ppd. Denies fever, VELOZ, CP or SOB, N/V/D/C, urinary sxs or hematuria, numbness or tingling. No past medical history on file. No past surgical history on file. No family history on file. Social History Socioeconomic History ??? Marital status: Spouse name: Not on file ??? Number of children: Not on file ??? Years of education: Not on file ??? Highest education level: Not on file Occupational History ??? Not on file Tobacco Use ??? Smoking status: Current Every Day Smoker Packs/day: 1.00 Types: Cigarettes ??? Smokeless tobacco: Never Used Substance and Sexual Activity ??? Alcohol use: Never ??? Drug use: Never ??? Sexual activity: Not on file Other Topics Concern ??? Not on file Social History Narrative ??? Not on file Social Determinants of Health Financial Resource Strain: ??? Difficulty of Paying Living Expenses: Food Insecurity: ??? Worried About Running Out of Food in the Last Year: ??? Ran Out of Food in the Last Year: Transportation Needs: ??? Lack of Transportation (Medical): ??? Lack of Transportation (Non-Medical): Physical Activity: ??? Days of Exercise per Week: ??? Minutes of Exercise per Session: Stress: ??? Feeling of Stress : Social Connections: ??? Frequency of Communication with Friends and Family: ??? Frequency of Social Gatherings with Friends and Family: ??? Attends Sabianism Services: ??? Active Member of Clubs or Organizations: ??? Attends Club or Organization Meetings: ??? Marital Status: Intimate Partner Violence: ??? Fear of Current or Ex-Partner: ??? Emotionally Abused: ??? Physically Abused: ??? Sexually Abused: Review of Systems Review of Systems Constitutional: Negative. HENT: Negative. Eyes: Negative. Respiratory: Negative. Cardiovascular: Negative. Gastrointestinal: Positive for abdominal pain. Negative for blood in stool, constipation, diarrhea,heartburn, melena, nausea and vomiting. Genitourinary: Negative. Musculoskeletal: Negative. Skin: Negative. Neurological: Negative. Endo/Heme/Allergies: Negative. Psychiatric/Behavioral: Negative. All other systems reviewed and are negative. Physical Exam BP 129/79 Pulse 90 Temp 99.1 ??F (37.3 ??C) Resp 18 Ht 1.829 m (6') Wt 83.9 kg (185 lb) SpO2 99% BMI 25.09 kg/m?? Physical Exam Vitals and nursing note reviewed. Constitutional: General: He is awake. He is not in acute distress. Appearance: Normal appearance. He is well-developed, well-groomed and normal weight. He is not ill-appearing, toxic-appearing or diaphoretic. HENT: Head: Normocephalic and atraumatic. Right Ear: External ear normal. Left Ear: External ear normal. Nose: Nose normal. Mouth/Throat: Mouth: Mucous membranes are moist. Pharynx: Oropharynx is clear. Eyes: Extraocular Movements: Extraocular movements intact. Conjunctiva/sclera: Conjunctivae normal. Cardiovascular: Rate and Rhythm: Normal rate and regular rhythm. Pulses: Normal pulses. Heart sounds: Normal heart sounds. Pulmonary: Effort: Pulmonary effort is normal. No respiratory distress. Breath sounds: Normal breath sounds. No wheezing. Abdominal: General: Abdomen is flat. Bowel sounds are normal. There is no distension. Palpations: Abdomen is soft. Tenderness: There is abdominal tenderness in the left upper quadrant and left lower quadrant. Thereis no right CVA tenderness, left CVA tenderness, guarding or rebound. Negative signs include Rios's sign, Rovsing's sign and McBurney's sign. Musculoskeletal: General: No swelling or tenderness. Normal range of motion. Cervical back: Normal range of motion. Skin: General: Skin is warm and dry. Capillary Refill: Capillary refill takes less than 2 seconds. Coloration: Skin is not jaundiced. Findings: No erythema. Neurological: General: No focal deficit present. Mental Status: He is alert and oriented to person, place, and time. Psychiatric: Mood and Affect: Mood normal. Mood is not anxious. Behavior: Behavior normal. Behavior is cooperative. Medications No current outpatient medications on file. Procedures Procedures Lab/SPO2 Interpretation Hospital Encounter on 11/26/20 CBC W AUTO DIFFERENTIAL Result Value Ref Range WBC 11.1 (H) 3.5 - 10.5 10??3/uL RBC 5.47 4.30 - 5.70 10??6/uL Hemoglobin 16.5 12.0 - 17.6 g/dL Hematocrit 47.9 35.2 - 51.7 % MCV 87.6 80.7 - 98.3 fL MCH 30.2 26.7 - 34.0 pg MCHC 34.4 30.8 - 35.9 g/dL Platelet Count 282 150 - 400 10??3/uL RDW-SD 39.3 36.0 - 50.0 fL RDW-CV 12.3 11.2 - 14.8 % MPV 8.5 (L) 9.4 - 12.9 fL nRBC Absolute 0.00 0 10??3/uL nRBC Auto 0.0 0 /100 WBC Neutrophils % 63.2 35.0 - 70.0 % Lymphocytes % 25.2 20.0 - 43.0 % Monocytes % 7.2 5.0 - 13.0 % Eosinophils % 3.1 0.0 - 6.0 % Basophil % 0.8 0.0 - 2.0 % Neutrophils Absolute 7.0 1.6 - 7.0 10??3/uL Lymphocyte Absolute 2.8 1.1 - 3.9 10??3/uL Monocytes Absolute 0.80 0.26 - 1.07 10??3/uL Eosinophils Absolute 0.34 0.00 - 0.47 10??3/uL Basophils Absolute 0.09 (H) 0.00 - 0.08 10??3/uL Immature Granulocytes % 0.5 0.0 - 1.0 % Immature Granulocytes Absolute 0.05 COMPREHENSIVE METABOLIC PANEL Result Value Ref Range BUN 16 7 - 26 mg/dL Creatinine 1.21 (H) 0.71 - 1.16 mg/dL Sodium 140 136 - 145 mmol/L Potassium 4.1 3.5 - 4.5 mmol/L Chloride 108 (H) 98 - 107 mmol/L CO2 23 22 - 29 mmol/L Glucose 97 70 - 115 mg/dL Calcium 9.6 8.4 - 10.2 mg/dL Protein Total 7.1 6.0 - 8.3 g/dL Albumin 4.0 3.4 - 5.0 g/dL Bilirubin Total 0.8 0.2 - 1.2 mg/dL Alkaline Phosphatase 89 40 - 150 U/L ALT 34 5 - 55 U/L AST 22 5 - 34 U/L Anion Gap 13 8 - 18 BUN/Creatinine Ratio 13 7 - 23 Osmolality Calculated 291 270 - 300 mOsm/kg Albumin/Globulin Ratio 1.3 1.1 - 2.3 eGFR by CKD-EPI 70 (L) >=90 mL/min/1.73 m2 LIPASE BLOOD Result Value Ref Range Lipase 19 8 - 78 U/L URINALYSIS W/MICROSCOPIC NO CULTURE Specimen: Urine Clean Catch Result Value Ref Range Color UA Yellow Straw, Yellow Clarity UA Clear Clear Specific [place] UA 1.018 1.005 - 1.030 pH UA 5.0 5.0 - 8.0 pH Protein UA Negative Negative Glucose UA Negative Negative Ketone UA Negative Negative Bilirubin UA Negative Negative Blood UA Negative Negative Nitrite UA Negative Negative Leukocyte Esterase Negative Negative Urobilinogen UA Negative Negative mg/dL RBC UA 0-2 None Seen, 0-2, 3-5 /HPF WBC UA 0-5 None Seen, 0-5 /HPF Squamous Epithelial Cells UA None Seen None Seen, 0-2, 3-5 /HPF LACTIC ACID BLOOD Result Value Ref Range Lactic Acid-Stat 1.0 <=2.0 mmol/L CT ABDOMEN PELVIS W CONTRAST (Results Pending) Progress Notes DDx: Muscle strain vs. Gastritis vs. Kidney stone vs. Pyelo vs. Diverticulosis vs. Diverticulitis vs. Splenic infarct vs. Other 1606: Pt examined and able to ask questions about treatment course at this time. -Review labs and imaging. -Sxs management - although pt declines pain medication at this time. 181: Sign out to Jules HURLEY. ED Course Clinical Impressions as of Nov 26 1802 LUQ pain Medical Decision Making I have reviewed the: Previous Chart, Nursing Notes, Vitals. I have interpreted the following results: Labs, 12 Lead EKG, CT Scans and Oxygen Saturation. Orders Placed This Encounter ??? CT ABDOMEN PELVIS W CONTRAST ??? CBC W AUTO DIFFERENTIAL ??? COMPREHENSIVE METABOLIC PANEL ??? LIPASE BLOOD ??? URINALYSIS W/MICROSCOPIC NO CULTURE ??? LACTIC ACID BLOOD ??? TROPONIN I ??? EKG 12-LEAD ??? AND Linked Order Group ??? 0.9% NaCl injection 3 mL ??? 0.9% NaCl injection 1-10 mL ??? DISCONTD: famotidine (Pepcid) tablet 20 mg Associated attestation - Deborah Lion MD - 11/27/2020 12:40 AM CDT 11/27/2020 00:35 For this patient encounter, I reviewed the advanced practitioner's documentation, procedures (if done), treatment plan, and medical decision making; and I had [id number] time with this patient. I have conducted an independent evaluation of this patient including a focused history and physicalexam, which are in agreement with ARIELA Webb's documentation except as otherwise noted. HPI 50yo male with history of gastroschisis repair as an infant, prior SBO (treated conservatively) presenting to [facility] ED with L-sided abdominal pain. Began 2 days ago, denies fevers, chills, nausea, vomiting, anorexia. Still having normal stools and passing gas. States had good dinner last night. However pain worsened to the point he could not ignore it, so came to [facility] ED for evaluation. PE Gen - visibly uncomfortable; declined pain medications multiple times and in no immediate distress,but visibly in pain Abd - LUQ TTP with patient wincing with palpation, +guarding, no rebound MDM Etiology of pain unclear. Possible unusual pancreatitis, gastritis. Possible aorta, though all distal pulses 2+ and symmetric without unilateral deficits. Possible ?splenic etiology, though unsure how patient would be at risk for this. 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 Would less favor SBO, despite prior history, given continued passage of gas/stools, though pSBO possible. Patient is stoic but seems highly uncomfortable on examination and CT imaging is warranted. Will obtain labwork, control symptoms if patient desires, continue to monitor. Progress Note: 11:00pm - CT abd/pelvis with IV contrast notable for intestinal malrotation with reversal of SMA and SMV relation. Unclear etiology of this finding, ?internal hernia. Will consult ACS. Dispo: Signed out to Dr. Nieves. Pending ACS recs, high likelihood of admission. * Kerri Callejas RN - 11/26/2020 4:08 PM CDT Pt provided with urine specimen cup, pt instructed on proper collection technique, pt stated understanding * Patrick Reinoso - 11/26/2020 4:07 PM CDT Pt taken to Intake 2 by nurse. * Kerri Callejas RN - 11/26/2020 4:03 PM CDT Pain Abdominal - Pt ambulatory to ED with c/o L sided abd pain x2 days, pt denies n/v/d/c, pounding to sharp pain , +associated SOB with pain, constant, 9/10 pain, pt denies urinary issues, no issuewith appetite, PMH bowel obstruction 10 years, gastric surgery at Patient History No past medical history on file. No past surgical history on file. Patient Vitals for the past 2 hrs: BP Temp Pulse Resp SpO2 11/26/20 1545 129/79 99.1 ??F (37.3 ??C) 90 18 99 % Supplemental Oxygen (last filed value): RA documented in this encounter Plan of Treatment Not on file documented as of this encounter Procedures Procedure Name Priority Date/Time Associated Diagnosis Comments CBC W AUTO DIFFERENTIAL Routine 11/29/2020 1:39 AM CDT BASIC METABOLIC PANEL (CALCIUM TOTAL) Routine 11/29/2020 1:39 AM CDT PHOSPHORUS BLOOD Routine 11/29/2020 1:39 AM CDT MAGNESIUM BLOOD Routine 11/29/2020 1:39 AM CDT CREATINE URINE STAT 11/28/2020 3:57 PM CDT SODIUM URINE RANDOM STAT 11/28/2020 3 :57 PM CDT POTASSIUM URINE RANDOM STAT 3:57 PM CDT CREATININE URINE RANDOM STAT 11/28/2020 3:57 PM CDT CARDIAC EKG ORDER 11/28/2020 2:4 3 PM CDT BASIC METABOLIC PANEL (CALCIUM TOTAL) Timed 11/28/2020 1:48 PM CDT CBC W AUTO DIFFERENTIAL Routine 11/28/2020 1:52 AM CDT BASIC METABOLIC PANEL (CALCIUM TOTAL) Routine 11/28/2020 1:52 AM CDT PHOSPHORUS BLOOD Routine 11/28/2020 1:52 AM CDT MAGNESIUM BLOOD Routine 11/28/2020 1:52 AM CDT HELICOBACTER PYLORI ANTIGEN FECES STAT 11/27/2020 4:30 PM CDT FL SMALL BOWEL SERIES STAT 11/27/2020 3:56 PM CDT LUQ pain CBC W AUTO DIFFERENTIAL STAT 11/27/2020 3:43 AM CDT BASIC METABOLIC PANEL (CALCIUM TOTAL) STAT 11/27/2020 3:43 AM CDT PHOSPHORUS BLOOD STAT 11/27/2020 3:43 AM CDT MAGNESIUM BLOOD STAT 11/27/2020 3:43 AM CDT LACTIC ACID BLOOD STAT 11/27/2020 3:4 3 AM CDT SARS-COV-2 (COVID-19)+INFLU A+B PCR RAPID STAT 11/27/2020 2:[address] ABDOMEN PELVIS W CONTRAST STAT 11/26/2020 7:51 PM CDT LUQ pain EKG 12-LEAD Routine 11/26/2020 5:43 PM CDT LUQ pain TROPONIN I STAT 11/26/2020 5:37 PM CDT LACTIC ACID BLOOD STAT 11/26/2020 5:3 7 PM CDT URINALYSIS W/MICROSCOPIC NO CULTURE STAT 11/26/2020 4:14 PM CDT CBC W AUTO DIFFERENTIAL STAT 11/26/2020 4:11 PM CDT COMPREHENSIVE METABOLIC PANEL STAT 11/26/2020 4:11 PM CDT LIPASE BLOOD STAT 11/26/2020 4:11 PM CDT documented in this encounter Results * PHOSPHORUS BLOOD (11/29/2020 1:39 AM CDT) Phosphorus 3.5 2.8 - 5.1 mg/dL 11/29/2020 3:26 AM CDT [facility] Blood BLOOD SPECIMEN / Unknown Lab Venipuncture / Unknown 11/29/2020 1:39 AM CDT 11/29/2020 2:59 AM CDT Suleman Grissom MD LAB - CHEMISTRY [place] [facility] [address] [place] [address], [facility] [phone] * MAGNESIUM BLOOD (11/29/2020 1:39 AM CDT) Magnesium 2.3 1.6 - 2.6 mg/dL 11/29/2020 3:26 AM CDT [facility] Blood BLOOD SPECIMEN / Unknown Lab Venipuncture / Unknown 11/29/2020 1:39 AM CDT 11/29/2020 2:59 AM CDT uSleman Grissom MD LAB - CHEMISTRY [place] [facility] [address] [place] [address], [place] [phone] * (ABNORMAL) BASIC METABOLIC PANEL (CALCIUM TOTAL) (11/29/2020 1:39 AM CDT) BUN 10 7 - 26 mg/dL 11/29/2020 3:26 AM [facility] Creatinine 1.24(H) 0.71 - 1.16 mg/dL 11/29/2020 3:26 AM [facility] Sodium 142 136 - 145 mmol/L 11/29/2020 3:26 AM [facility] Potassium 3.8 3.5 - 4.5 mmol/L 11/29/2020 3:26 AM [facility] Chloride 108(H) 98 - 107 mmol/L 11/29/2020 3:26 AM [facility] CO2 25 22 - 29 mmol/L 11/29/2020 3:26 AM [facility] Glucose 111 70 - 115 mg/dL 11/29/2020 3:26 AM [facility] Calcium 9.0 8.4 - 10.2 mg/dL 11/29/2020 3:26 AM [facility] Anion Gap 13 8 - 18 11/29/2020 3:26 AM [facility] BUN/Creatinine Ratio 8 7 - 23 11/29/2020 3:26 AM [facility] Osmolality Calculated 294 270 - 300 mOsm/kg 11/29/2020 3:26 AM [facility] eGFR by CKD-EPI 68(L) >=90 mL/min/1.7 3 m2 11/29/2020 3:26 AM [facility] Blood BLOOD SPECIMEN / Unknown Lab Venipuncture / Unknown 11/29/2020 1:39 AM CDT 11/29/2020 2:59 AM T Suleman Grissom MD LAB - CHEMISTRY [place] [facility] [address] [place] [address] [phone] * (ABNORMAL) CBC W AUTO DIFFERENTIAL (11/29/2020 1:39 AM T) WBC 7.9 3.5 - 10.5 10? 3 /uL 11/29/2020 3:51 AM [facility] RBC 5.34 4.30 - 5.70 10? 6 /uL 11/29/2020 3:51 AM [facility] Hemoglobin 15.9 12.0 - 17.6 g/dL 11/29/2020 3:51 AM [facility] Hematocrit 47.1 35.2 - 51.7 % 11/29/2020 3:51 AM [facility] MCV 88.2 80.7 - 98.3 fL 11/29/2020 3:51 AM [facility] MCH 29.8 26.7 - 34.0 pg 11/29/2020 3:51 AM [facility] MCHC 33.8 30.8 - 35.9 g/dL 11/29/2020 3:51 AM [facility] Platelet Count 256 150 - 400 10? 3 /uL 11/29/2020 3:51 AM [facility] RDW-SD 39.5 36.0 - 50.0 fL 11/29/2020 3:51 AM [facility] RDW-CV 12.1 11.2 - 14.8 % 11/29/2020 3:51 AM [facility] MPV 8.8(L) 9.4 - 12.9 fL 11/29/2020 3:51 AM [facility] nRBC Absolute 0.00 0 10? 3 /uL 11/29/2020 3:51 AM [facility] nRBC Auto 0.0 0 /100 WBC 11/29/2020 3:51 AM [facility] Neutrophils % 56.3 35.0 - 70.0 % 11/29/2020 3:51 AM [facility] Lymphocytes % 27.7 20.0 - 43.0 % 11/29/2020 3:51 AM [facility] Monocytes % 8.7 5.0 - 13.0 % 11/29/2020 3:51 AM [facility] Eosinophils % 6.1(H) 0.0 - 6.0 % 11/29/2020 3:51 AM T [facility] Basophil % 0.8 0.0 - 2.0 % 11/29/2020 3:51 AM [facility] Neutrophils Absolute 4.5 1.6 - 7.0 10? 3 /uL 11/29/2020 3:51 AM T [facility] Lymphocyte Absolute 2.2 1.1 - 3.9 10? 3 /uL 11/29/2020 3:51 AM [facility] Monocytes Absolute 0.69 0.26 - 1.07 10? 3 /uL 11/29/2020 3:51 AM [facility] Eosinophils Absolute 0.48(H) 0.00 - 0.47 10? 3 /uL 11/29/2020 3:51 AM [facility] Basophils Absolute 0.06 0.00 - 0.08 10? 3 /uL 11/29/2020 3:51 AM [facility] Immature Granulocytes % 0.4 0.0 - 1.0 % 11/29/2020 3:51 AM [facility] Immature Granulocytes Absolute 0.03 11/29/2020 3:51 AM [facility] Blood BLOOD SPECIMEN / Unknown Lab Venipuncture / Unknown 11/29/2020 1:39 AM CDT 11/29/2020 2:59 AM CDT Suleman Grissom MD LAB - HEMATOLOGY ORD ERABLES Performing Organization Address City/State/[facility] Co de Phone Number [facility] [address] [place] [address] [phone] * CREATININE URINE RANDOM (11/28/2020 3:57 PM CDT) Creatinine Urine 18 Not Established mg/dL 11/29/2020 5:40 AM T [facility] Urine URINE SPECIMEN OBTAINED BY CLEAN CATCH PROCEDURE / Unknown Collection / Unknown 11/28/2020 3:57 PM CDT 11/28/2020 4:02 PM CDT Suleman Grissom MD LAB - URINE CHEMISTR Y ORDERABLES Performing Organization Address City/[facility]/ZIP Co de Phone Number [address] [address], [facility] [phone] * POTASSIUM URINE RANDOM (11/28/2020 3:57 PM CDT) Potassium Urine 5.5 Not Established mmol/L 11/28/2020 4:29 PM CDT [facility] Urine URINE SPECIMEN OBTAINED BY CLEAN CATCH PROCEDURE / Unknown Collection / Unknown 11/28/2020 3:57 PM CDT 11/28/2020 4:02 PM CDT Suleman Grissom MD LAB - URINE CHEMISTR Y ORDERABLES Performing Organization Address [facility]/ZIP Co de Phone Number [address] [address], [place] [phone] * CREATINE URINE (11/28/2020 3:57 PM CDT) Creatine 24 Hour Urine Not Applicable mg/24h 12/08/2020 5:23 PM CDT [facility] ([facility]) Comment: INTERPRETIVE INFORMATION: ??Creatine Urine For random or timed specimens other than 24 hrs, the result represents the total milligrams of creatine excreted during the collection period. Reference ranges for creatine have been established for random urine collections, in mmol/mol creatinine. Access complete set of age- and/or gender-specific reference intervals for this test in the [facility] ([facility]). Performed by [facility], [address] [place] [id number] [email or web address], Mary Engle MD, Lab. Director Collection Time Hours Random hr 12/08/2020 5:23 PM CDT [facility]) Volume 24 Hour Urine Random mL 12/08/2020 5:23 PM CDT [facility]) Creatinine Urine 1346.2 umol/L 12/09/19 5:23 PM CDT [facility]) Creatine Urine 25 10 - 370 mmol/mol [employer]ITE [employer] TANK OPERATOR 12/08/2020 5:23 PM CDT [facility] ([facility]) Comment: This test was developed and its performance characteristics determined by [facility]. It has not been cleared or approved by the [place] Food and Drug Administration. This test was performed in a CLIA certified laboratory and is intended for clinical purposes. Urine URINE SPECIMEN OBTAINED BY CLEAN CATCH PROCEDURE / Unknown Collection / Unknown 11/28/2020 3:57 PM CDT 11/28/2020 4:02 PM CDT Suleman Grissom MD LAB - URINE CHEMISTR Y ORDERABLES [facility]) [address] [place] [address], [facility] * SODIUM URINE RANDOM (11/28/2020 3:57 PM CDT) Sodium Urine 30 Not Established mmol/L 11/28/2020 4:29 PM CDT [facility] Urine URINE SPECIMEN OBTAINED BY CLEAN CATCH PROCEDURE / Unknown Collection / Unknown 11/28/2020 3:57 PM CDT 11/28/2020 4:02 PM CDT Suleman Grissom MD LAB - URINE CHEMISTR Y ORDERABLES [facility] [address] [place] [address], [facility] [phone] * CARDIAC EKG ORDER (11/28/2020 2:43 PM CDT) Narrative 11/28/2020 2:43 PM CDT Ordered by an unspecified provider. Scanned Document CARDIAC SERVICES ORD ERABLES * (ABNORMAL) BASIC METABOLIC PANEL (CALCIUM TOTAL) (11/28/2020 1:48 PM CDT) BUN 11 7 - 26 mg/dL 11/28/2020 2:20 PM CDT [facility] Creatinine 1.30(H) 0.71 - 1.16 mg/dL 11/28/2020 2:20 PM CDT [facility] Sodium 140 136 - 145 mmol/L 11/28/2020 2:20 PM [facility] Potassium 4.0 3.5 - 4.5 mmol/L 11/28/2020 2:20 PM [facility] Chloride 106 98 - 107 mmol/L 11/28/2020 2:20 PM [facility] CO2 25 22 - 29 mmol/L 11/28/2020 2:20 PM [facility] Glucose 91 70 - 115 mg/dL 11/28/2020 2:20 PM [facility] Calcium 9.3 8.4 - 10.2 mg/dL 11/28/2020 2:20 PM [facility] Anion Gap 13 8 - 18 11/28/2020 2:20 PM [facility] BUN/Creatinine Ratio 8 7 - 23 11/28/2020 2:20 PM [facility] Osmolality Calculated 289 270 - 300 mOsm/kg 11/28/2020 2:20 PM [facility] eGFR by CKD-EPI 65(L) >=90 mL/min/1.7 3 m2 11/28/2020 2:20 PM [facility] Blood BLOOD SPECIMEN / Unknown Lab Venipuncture / Unknown 11/28/2020 1:48 PM CDT 11/28/2020 1:58 PM CDT Suleman Grissom MD LAB - CHEMISTRY [place] [facility] [address] [place] [address], [facility] [phone] * PHOSPHORUS BLOOD (11/28/2020 1:52 AM CDT) Phosphorus 4.0 2.8 - 5.1 mg/dL 11/28/2020 4:07 AM T [facility] Blood BLOOD SPECIMEN / Unknown Lab Venipuncture / Unknown 11/28/2020 1:52 AM CDT 11/28/2020 3:44 AM CDT Suleman Grissom MD LAB - CHEMISTRY [place] [facility] [address] [place] [address], [facility] [phone] * MAGNESIUM BLOOD (11/28/2020 1:52 AM CDT) [facility] Magnesium 2.3 1.6 - 2.6 mg/dL 11/28/2020 4:07 AM [facility] Blood BLOOD SPECIMEN / Unknown Lab Venipuncture / Unknown 11/28/2020 1:52 AM CDT 11/28/2020 3:44 AM CDT Suleman Grissom MD LAB - CHEMISTRY [place] [facility] [address] [place] [address], [facility] [phone] * (ABNORMAL) BASIC METABOLIC PANEL (CALCIUM TOTAL) (11/28/2020 1:52 AM CDT) [facility] BUN 11 7 - 26 mg/dL 11/28/2020 4:07 AM [facility] Creatinine 1.29(H) 0.71 - 1.16 mg/dL 11/28/2020 4:07 AM [facility] Sodium 142 136 - 145 mmol/L 11/28/2020 4:07 AM [facility] Potassium 4.4 3.5 - 4.5 mmol/L 11/28/2020 4:07 AM [facility] Chloride 107 98 - 107 mmol/L 11/28/2020 4:07 AM [facility] CO2 24 22 - 29 mmol/L 11/28/2020 4:07 AM [facility] Glucose 91 70 - 115 mg/dL 11/28/2020 4:07 AM [facility] Calcium 9.0 8.4 - 10.2 mg/dL 11/28/2020 4:07 AM [facility] Anion Gap 15 8 - 18 11/28/2020 4:07 AM [facility] BUN/Creatinine Ratio 9 7 - 23 11/28/2020 4:07 AM [facility] Osmolality Calculated 293 270 - 300 mOsm/kg 11/28/2020 4:07 AM [facility] eGFR by CKD-EPI 65(L) >=90 mL/min/1.7 3 m2 11/28/2020 4:07 AM [facility] Blood BLOOD SPECIMEN / Unknown Lab Venipuncture / Unknown 11/28/2020 1:52 AM CDT 11/28/2020 3:44 AM CDT Suleman Grissom MD LAB - CHEMISTRY [place] [facility] [address] [place] [address], [facility] [phone] * (ABNORMAL) CBC W AUTO DIFFERENTIAL (11/28/2020 1:52 AM CDT) WBC 8.4 3.5 - 10.5 10? 3 /uL 11/28/2020 3:51 AM [facility] RBC 5.37 4.30 - 5.70 10? 6 /uL 11/28/2020 3:51 AM [facility] Hemoglobin 16.0 12.0 - 17.6 g/dL 11/28/2020 3:51 AM [facility] Hematocrit 47.2 35.2 - 51.7 % 11/28/2020 3:51 AM [facility] MCV 87.9 80.7 - 98.3 fL 11/28/2020 3:51 AM [facility] MCH 29.8 26.7 - 34.0 pg 11/28/2020 3:51 AM [facility] MCHC 33.9 30.8 - 35.9 g/dL 11/28/2020 3:51 AM [facility] Platelet Count 254 150 - 400 10? 3 /uL 11/28/2020 3:51 AM [facility] RDW-SD 39.8 36.0 - 50.0 fL 11/28/2020 3:51 AM [facility] RDW-CV 12.3 11.2 - 14.8 % 11/28/2020 3:51 AM [facility] MPV 8.7(L) 9.4 - 12.9 fL 11/28/2020 3:51 AM [facility] nRBC Absolute 0.00 0 10? 3 /uL 11/28/2020 3:51 AM [facility] nRBC Auto 0.0 0 /100 WBC 11/28/2020 3:51 AM [facility] Neutrophils % 55.4 35.0 - 70.0 % 11/28/2020 3:51 AM [facility] Lymphocytes % 29.6 20.0 - 43.0 % 11/28/2020 3:51 AM [facility] Monocytes % 8.3 5.0 - 13.0 % 11/28/2020 3:51 AM [facility] Eosinophils % 5.2 0.0 - 6.0 % 11/28/2020 3:51 AM [facility] Basophil % 1.0 0.0 - 2.0 % 11/28/2020 3:51 AM [facility] Neutrophils Absolute 4.7 1.6 - 7.0 10? 3 /uL 11/28/2020 3:51 AM [facility] Lymphocyte Absolute 2.5 1.1 - 3.9 10? 3 /uL 11/28/2020 3:51 AM [facility] Monocytes Absolute 0.70 0.26 - 1.07 10? 3 /uL 11/28/2020 3:51 AM [facility] Eosinophils Absolute 0.44 0.00 - 0.47 10? 3 /uL 11/28/2020 3:51 AM [facility] Basophils Absolute 0.08 0.00 - 0.08 10? 3 /uL 11/28/2020 3:51 AM [facility] Immature Granulocytes % 0.5 0.0 - 1.0 % 11/28/2020 3:51 AM [facility] Immature Granulocytes Absolute 0.04 11/28/2020 3:51 AM [facility] Blood BLOOD SPECIMEN / Unknown Lab Venipuncture / Unknown 11/28/2020 1:52 AM CDT 11/28/2020 3:44 AM CDT Suleman Grissom MD LAB - HEMATOLOGY ORD ERABLES [facility] [address] [place] [address], [facility] [phone] * HELICOBACTER PYLORI ANTIGEN FECES (11/27/2020 4:30 PM CDT) Helicobacter pylori Antigen Stool Negative Negative 11/30/2020 1:22 PM CDT [facility] ([facility]) Comment: Performed By: [facility] [address] [place] [address] [employer] Operator: Mary Engle MD Stool STOOL SPECIMEN / Unknown Collection / Unknown 11/27/2020 4:30 PM CDT 11/27/2020 4:34 PM CDT Erick Kuhn MD LAB - MICROBIOLOGY ORDERABLES Performing Organization Address City/[facility]/ZIP Co de Phone Number [facility]) [address] [place] [address] * [place] SMALL BOWEL SERIES (11/27/2020 3:56 PM CDT) Anatomical Region Laterality Modality Abdomen Radiographic Elisha ging 11/27/2020 3:55 PM CDT Impressions 11/30/2020 1:57 PM CDT IMPRESSION: Modification of the small bowel is reidentified otherwise unremarkable small bowel series. Dictated by Efraín Abreu MD (plant operations vice president). I, Dr. YURI GRAVES MD, [facility] have personally reviewed and interpreted this examination/study. This report was electronically signed by YURI GRAVES MD, FRCR ??on 11/30/2020 1:57 PM . Narrative 11/30/2020 [...] bowel series. Dictated by Efraín Abreu MD (plant operations vice president). I, Dr. YURI GRAVES MD, FR have personally reviewedand interpreted this examination/study. This report was electronically signed by YURI GRAVES MD, FRCR on 11/30/2020 1:57 PM . Erick Kuhn MD FLUOROSCOPY ORDERA BLES * PHOSPHORUS BLOOD (11/27/2020 3:43 AM CDT) Phosphorus 3.7 2.8 - 5.1 mg/dL 11/27/2020 4:21 AM CDT [facility] Blood BLOOD SPECIMEN / Unknown Venipuncture / Unknown 11/27/2020 3:43 AM CDT 11/27/2020 3:50 AM CDT Suleman Grissom MD LAB - CHEMISTRY [place] [facility] [address] [place] [address], [facility] [phone] * MAGNESIUM BLOOD (11/27/2020 3:43 AM CDT) Pathologist [facility] Magnesium 2.2 1.6 - 2.6 mg/dL 11/27/2020 4:21 AM [facility] Blood BLOOD SPECIMEN / Unknown Venipuncture / Unknown 11/27/2020 3:43 AM CDT 11/27/2020 3:50 AM CDT Suleman Grissom MD LAB - CHEMISTRY [place] [facility] Organization Address City/State/ZIP Co de Phone Number [facility] [address] [place] [address], [facility] [phone] * (ABNORMAL) BASIC METABOLIC PANEL (CALCIUM TOTAL) (11/27/2020 3:43 AM CDT) Pathologist [facility] BUN 16 7 - 26 mg/dL 11/27/2020 4:21 AM [facility] Creatinine 1.14 0.71 - 1.16 mg/dL 11/27/2020 4:21 AM [facility] Sodium 139 136 - 145 mmol/L 11/27/2020 4:21 AM [facility] Potassium 3.9 3.5 - 4.5 mmol/L 11/27/2020 4:21 AM [facility] Chloride 106 98 - 107 mmol/L 11/27/2020 4:21 AM [facility] CO2 26 22 - 29 mmol/L 11/27/2020 4:21 AM [facility] Glucose 99 70 - 115 mg/dL 11/27/2020 4:21 AM [facility] Calcium 9.1 8.4 - 10.2 mg/dL 11/27/2020 4:21 AM [facility] Anion Gap 11 8 - 18 11/27/2020 4:21 AM [facility] BUN/Creatinine Ratio 14 7 - 23 11/27/2020 4:21 AM [facility] Osmolality Calculated 289 270 - 300 mOsm/kg 11/27/2020 4:21 AM [facility] eGFR by CKD-EPI 76(L) >=90 mL/min/1.7 3 m2 11/27/2020 4:21 AM [facility] Blood BLOOD SPECIMEN / Unknown Venipuncture / Unknown 11/27/2020 3:43 AM CDT 11/27/2020 3:50 AM CDT Suleman Grissom MD LAB - CHEMISTRY [place] [facility] Organization Address City/State/ZIP Co de Phone Number [facility] [address] [place] [address], [facility] [phone] * (ABNORMAL) CBC W AUTO DIFFERENTIAL (11/27/2020 3:43 AM CDT) WBC 8.2 3.5 - 10.5 10? 3 /uL 11/27/2020 3:56 AM [facility] RBC 5.14 4.30 - 5.70 10? 6 /uL 11/27/2020 3:56 AM [facility] Hemoglobin 15.2 12.0 - 17.6 g/dL 11/27/2020 3:56 AM [facility] Hematocrit 44.8 35.2 - 51.7 % 11/27/2020 3:56 AM [facility] MCV 87.2 80.7 - 98.3 fL 11/27/2020 3:56 AM [facility] MCH 29.6 26.7 - 34.0 pg 11/27/2020 3:56 AM [facility] MCHC 33.9 30.8 - 35.9 g/dL 11/27/2020 3:56 AM [facility] Platelet Count 257 150 - 400 10? 3 /uL 11/27/2020 3:56 AM [facility] RDW-SD 39.7 36.0 - 50.0 fL 11/27/2020 3:56 AM [facility] RDW-CV 12.3 11.2 - 14.8 % 11/27/2020 3:56 AM [facility] MPV 8.8(L) 9.4 - 12.9 fL 11/27/2020 3:56 AM [facility] nRBC Absolute 0.00 0 10? 3 /uL 11/27/2020 3:56 AM [facility] nRBC Auto 0.0 0 /100 WBC 11/27/2020 3:56 AM [facility] Neutrophils % 58.5 35.0 - 70.0 % 11/27/2020 3:56 AM [facility] Lymphocytes % 27.7 20.0 - 43.0 % 11/27/2020 3:56 AM [facility] Monocytes % 7.9 5.0 - 13.0 % 11/27/2020 3:56 AM [facility] Eosinophils % 4.4 0.0 - 6.0 % 11/27/2020 3:56 AM [facility] Basophil % 1.0 0.0 - 2.0 % 11/27/2020 3:56 AM [facility] Neutrophils Absolute 4.8 1.6 - 7.0 10? 3 /uL 11/27/2020 3:56 AM [facility] Lymphocyte Absolute 2.3 1.1 - 3.9 10? 3 /uL 11/27/2020 3:56 AM [facility] Monocytes Absolute 0.65 0.26 - 1.07 10? 3 /uL 11/27/2020 3:56 AM [facility] Eosinophils Absolute 0.36 0.00 - 0.47 10? 3 /uL 11/27/2020 3:56 AM [facility] Basophils Absolute 0.08 0.00 - 0.08 10? 3 /uL 11/27/2020 3:56 AM [facility] Immature Granulocytes % 0.5 0.0 - 1.0 % 11/27/2020 3:56 AM [facility] Immature Granulocytes Absolute 0.04 11/27/2020 3:56 AM [facility] Blood BLOOD SPECIMEN / Unknown Venipuncture / Unknown 11/27/2020 3:43 AM CDT 11/27/2020 3:50 AM T Suleman Grissom MD LAB - HEMATOLOGY ORD ERABLES [facility] [address] [place] [id number], [facility] [phone] * LACTIC ACID BLOOD (11/27/2020 3:43 AM CDT) Lactic Acid-Stat 0.8 <=2.0 mmol/L 11/27/2020 4:16 AM CDT [facility] Blood BLOOD SPECIMEN / Unknown Venipuncture / Unknown 11/27/2020 3:43 AM CDT 11/27/2020 3:50 AM CDT Suleman Grissom MD LAB - CHEMISTRY [place] [facility] [address] [place] [address], [facility] [phone] * SARS-COV-2 (COVID-19)+INFLU A+B PCR RAPID (11/27/2020 2:42 AM CDT) Pathologist [facility] COVID-19 PCR Not detected Not detected 11/28/19 3:27 AM CDT [facility] Influenza A Rapid MARLA Not Detected Not Detected 11/27/2020 3:27 AM CDT [facility] Influenza B MARLA Rapid Not Detected Not Detected 11/27/2020 3:27 AM CDT [facility] Microbiology SPECIMEN FROM NASOPHARYNGEAL STRUCTURE / Unknown Collection / Unknown 11/27/2020 2:42 AM CDT 11/27/2020 3:01 AM CDT Narrative [facility] - 11/27/2020 3:27 AM CDT Influenza [...] acid amplification assay performance was validated by [facility]. This test has been authorized by the [...] Grissom MD LAB - MICROBIOLOGY O RDERABLES [address] [id number], [facility] [phone] * CT ABDOMEN PELVIS W CONTRAST (11/26/2020 [...] * EKG 12-LEAD (11/26/2020 5:43 PM CDT) Ventricular Rate 72 BPM [facility] MUSE Atrial Rate 72 BPM [facility] MUSE P-R Interval 160 ms [facility] MUSE QRS Duration ms 86 ms H MUSE Q-T Interval ms 360 ms [facility] MUSE QTC Calculation (Bezet) 394 ms [facility] MUSE Calculated P Childress 56 degrees [facility] MUSE Calculated R Childress 78 degrees [facility] MUSE Calculated T Childress 28 degrees SL MUSE Interpretation EKG NORMAL SINUS RHYTHM WITH SINUS ARRHYTHMIA NORMAL ECG WHEN COMPARED WITH ECG OF 19-APR-2017 05:06, NO SIGNIFICANT CHANGE WAS FOUND Confirmed by Dany Elias ([id number]) on 11/30/2020 7:13:22 AM [facility] MUSE 11/26/2020 5:43 PM CDT 11/30/2020 7:13 AM CDT Deborah Lion MD ECG ORDERABLES [facility] MUSE * TROPONIN I (11/26/2020 5:37 PM CDT) Troponin I <0.010 <0.032 ng/mL 11/26/2020 6:12 PM CDT [facility] Blood BLOOD SPECIMEN / Unknown Venipuncture / Unknown 11/26/2020 5:37 PM CDT 11/26/2020 5:44 PM CDT Deborah Lion MD LAB - CHEMISTRY ORDE [place] Performing Organization Address City/[facility]/ZIP Co de Phone Number [address] [address], [facility] [phone] * LACTIC ACID BLOOD (11/26/2020 5:37 PM CDT) Lactic Acid-Stat 1.0 <=2.0 mmol/L 11/26/2020 6:02 PM CDT [facility] Blood BLOOD SPECIMEN / Unknown Venipuncture / Unknown 11/26/2020 5:37 PM CDT 11/26/2020 5:41 PM CDT Domi Webb PA-C LAB - CHEMISTRY OR DERABLES [address] [address], [place] [phone] * URINALYSIS W/MICROSCOPIC NO CULTURE (11/26/2020 4:14 PM CDT) Color UA Yellow Straw, Yellow 11/26/2020 4:34 PM CDT [facility] Clarity UA Clear Clear 11/26/2020 4:34 PM CDT [facility] Specific [place] UA 1.018 1.005 - 1.030 11/26/2020 4:34 PM CDT [facility] pH UA 5.0 5.0 - 8.0 pH 11/26/2020 4:34 PM CDT [facility] Protein UA Negative Negative 11/26/2020 4:34 PM CDT [facility] Glucose UA Negative Negative 11/26/2020 4:34 PM CDT [facility] Ketone UA Negative Negative 11/26/2020 4:34 PM CDT [facility] Bilirubin UA Negative Negative 11/26/2020 4:34 PM CDT [facility] Blood UA Negative Negative 11/26/2020 4:34 PM CDT [facility] Nitrite UA Negative Negative 11/26/2020 4:34 PM CDT [facility] Leukocyte Esterase Negative Negative 11/26/2020 4:34 PM CDT [facility] Urobilinogen UA Negative Negative mg/dL 11/26/2020 4:34 PM CDT [facility] RBC UA 0-2 None Seen, 0-2, 3-5 /HPF 11/26/2020 4:34 PM CDT [facility] WBC UA 0-5 None Seen, 0-5 /HPF 11/26/2020 4:34 PM CDT [facility] Squamous Epithelial Cells UA None Seen None Seen, 0-2, 3-5 /HPF 11/26/2020 4:34 PM CDT [facility] Urine URINE SPECIMEN OBTAINED BY CLEAN CATCH PROCEDURE / Unknown Collection / Unknown 11/26/2020 4:14 PM CDT 11/26/2020 4:22 PM CDT Narrative [facility] - 11/26/2020 4:34 PM CDT Efraín Mooney MD LAB - URINALYSIS ORD ERABLES [address] [address], [facility] [phone] * LIPASE BLOOD (11/26/2020 4:11 PM CDT) Lipase 19 8 - 78 U/L 11/26/2020 4:44 PM CDT [facility] Blood BLOOD SPECIMEN / Unknown Venipuncture / Unknown 11/26/2020 4:11 PM CDT 11/26/2020 4:19 PM CDT Efraní Mooney MD LAB - CHEMISTRY ORDHerminio GROVES [address] [place] [address], [facility] [phone] * (ABNORMAL) COMPREHENSIVE METABOLIC PANEL (11/26/2020 4:11 PM [facility]) BUN 16 7 - 26 mg/dL 11/26/2020 4:42 PM [facility] Creatinine 1.21(H) 0.71 - 1.16 mg/dL 11/26/2020 4:42 PM [facility] Sodium 140 136 - 145 mmol/L 11/26/2020 4:42 PM [facility] Potassium 4.1 3.5 - 4.5 mmol/L 11/26/2020 4:42 PM [facility] Chloride 108(H) 98 - 107 mmol/L 11/26/2020 4:42 PM [facility] CO2 23 22 - 29 mmol/L 11/26/2020 4:42 PM [facility] Glucose 97 70 - 115 mg/dL 11/26/2020 4:42 PM [facility] Calcium 9.6 8.4 - 10.2 mg/dL 11/26/2020 4:42 PM [facility] Protein Total 7.1 6.0 - 8.3 g/dL 11/26/2020 4:42 PM [facility] Albumin 4.0 3.4 - 5.0 g/dL 11/26/2020 4:42 PM [facility] Bilirubin Total 0.8 0.2 - 1.2 mg/dL 11/26/2020 4:42 PM [facility] Alkaline Phosphatase 89 40 - 150 U/L 11/26/2020 4:42 PM [facility] ALT 34 5 - 55 U/L 11/26/2020 4:42 PM [facility] AST 22 5 - 34 U/L 11/26/2020 4:42 PM [facility] Anion Gap 13 8 - 18 11/26/2020 4:42 PM [facility] BUN/Creatinine Ratio 13 7 - 23 11/26/2020 4:42 PM [facility] Osmolality Calculated 291 270 - 300 mOsm/kg 11/26/2020 4:42 PM [facility] Albumin/Globulin Ratio 1.3 1.1 - 2.3 11/26/2020 4:42 PM [facility] eGFR by CKD-EPI 70(L) >=90 mL/min/1.7 3 m2 11/26/2020 4:42 PM [facility] Blood BLOOD SPECIMEN / Unknown Venipuncture / Unknown 11/26/2020 4:11 PM CDT 11/26/2020 4:19 PM CDT Efraín Mooney MD LAB - CHEMISTRY [place] Organization Address City/State/ZIP Co de Phone Number [facility] [address] [place] [address], [facility] [phone] * (ABNORMAL) CBC W AUTO DIFFERENTIAL (11/26/2020 4:11 PM CDT) WBC 11.1(H) 3.5 - 10.5 10? 3 /uL 11/26/2020 4:21 PM [facility] RBC 5.47 4.30 - 5.70 10? 6 /uL 11/26/2020 4:21 PM [facility] Hemoglobin 16.5 12.0 - 17.6 g/dL 11/26/2020 4:21 PM [facility] Hematocrit 47.9 35.2 - 51.7 % 11/26/2020 4:21 PM [facility] MCV 87.6 80.7 - 98.3 fL 11/26/2020 4:21 PM [facility] MCH 30.2 26.7 - 34.0 pg 11/26/2020 4:21 PM [facility] MCHC 34.4 30.8 - 35.9 g/dL 11/26/2020 4:21 PM [facility] Platelet Count 282 150 - 400 10? 3 /uL 11/26/2020 4:21 PM [facility] RDW-SD 39.3 36.0 - 50.0 fL 11/26/2020 4:21 PM [facility] RDW-CV 12.3 11.2 - 14.8 % 11/26/2020 4:21 PM [facility] MPV 8.5(L) 9.4 - 12.9 fL 11/26/2020 4:21 PM [facility] nRBC Absolute 0.00 0 10? 3 /uL 11/26/2020 4:21 PM [facility] nRBC Auto 0.0 0 /100 WBC 11/26/2020 4:21 PM [facility] Neutrophils % 63.2 35.0 - 70.0 % 11/26/2020 4:21 PM [facility] Lymphocytes % 25.2 20.0 - 43.0 % 11/26/2020 4:21 PM [facility] Monocytes % 7.2 5.0 - 13.0 % 11/26/2020 4:21 PM [facility] Eosinophils % 3.1 0.0 - 6.0 % 11/26/2020 4:21 PM [facility] Basophil % 0.8 0.0 - 2.0 % 11/26/2020 4:21 PM [facility] Neutrophils Absolute 7.0 1.6 - 7.0 10? 3 /uL 11/26/2020 4:21 PM [facility] Lymphocyte Absolute 2.8 1.1 - 3.9 10? 3 /uL 11/26/2020 4:21 PM [facility] Monocytes Absolute 0.80 0.26 - 1.07 10? 3 /uL 11/26/2020 4:21 PM [facility] Eosinophils Absolute 0.34 0.00 - 0.47 10? 3 /uL 11/26/2020 4:21 PM [facility] Basophils Absolute 0.09(H) 0.00 - 0.08 10? 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 0.9% NaCl injection 3 mL 3 mL, Intracatheter, EVERY 8 HOURS, First dose on Diana 11/26/20 at 1645, Until Discontinued, Flush peripheral IV catheter with 3 mL of normal saline every 8 hours. $ Given 11/28/2020 3:44 PM CDT 3 mL $ Given 11/28/2020 4:40 AM CDT 3 mL $ Given 11/27/2020 8:17 PM CDT 3 mL acetaminophen (Tylenol) tablet 1,000 mg 1,000 mg, Oral, EVERY 8 HOURS, First dose on Mon11/27/20 at 0145, Until Discontinued $ Given 11/29/2020 6:25 AM CDT 1,000 mg $ Given 11/28/2020 11:34 PM CDT 1,000 mg $ Given 11/28/2020 3:44 PM CDT 1,000 mg cyclobenzaprine (Flexeril) tablet 10 mg 10 mg, Oral, 3 TIMES DAILY, First dose (after last modification) on Mon11/28/20 at 1100, Until Discontinued $ Given 11/29/2020 8:02 AM CDT 10 mg $ Given 11/28/2020 9:01 PM CDT 10 mg $ Given 11/28/2020 3:44 PM CDT 10 mg dextrose 5% and 0.45% NaCl with KCl 20 mEq infusion at 50 mL/hr, Intravenous, CONTINUOUS, Starting on Mon11/27/20 at 0200, Until 11/28/20 at 1052 Rate Change 11/28/2020 8:04 AM CDT 50 mL /hr $ New Bag/Syringe 11/27/2020 4:29 PM CDT 125 mL /hr Rate Change 11/27/2020 8:12 AM CDT 125 mL/hr dextrose 5% and 0.45% NaCl with KCl 20 mEq infusion at 75 mL/hr, Intravenous, CONTINUOUS, Starting on 11/28/20 at 1515, Until 11/29/20 at 1256 $ New Bag/Syringe 11/28/2020 3:49 PM CDT 75 mL/hr heparin injection 5,000 Units 5,000 Units, Subcutaneous, EVERY 8 HOURS, First dose on Mon11/27/20 at 0600, Until Discontinued $ Given 11/29/2020 6:30 AM CDT 5,000 Units Left Arm $ Given 11/27/2020 6:03 AM CDT 5,000 Units L eft Arm HYDROmorphone (Dilaudid) injection 0.2 mg 0.2 mg, Intravenous, EVERY 3 HOURS PRN, For Breakthrough Pain, Starting on 11/28/20 at 0719, Until 11/28/20 at 1052 $ Given 11/28/2020 8:17 AM CDT 0.2 mg HYDROmorphone (Dilaudid) injection 0.4 mg 0.4 mg, Intravenous, EVERY 3 HOURS PRN, Severe Pain, Starting on Mon11/27/20 at 0143, Until 11/28/20 at 0720 $ Given 11/28/2020 4:40 AM CDT 0.4 mg $ Given 11/27/2020 11:54 PM CDT 0.4 mg $ Given 11/27/2020 8:17 PM CDT 0.4 mg iopamidol (Isovue 300) 61 % contrast Oral, CONTRAST ONCE, Starting on Mon11/27/20 at 1327, Until 11/29/20 at 1256, Administer undiluted contrast for diagnostic imaging. $ Given - Contrast 11/27/2020 1:27 PM CDT 200 mL iopamidol (Isovue 370) 76 % contrast Intravenous, CONTRAST ONCE, Starting on Diana 11/26/20 at 1939, Until 11/28/20 at 1938 $ Given - Contrast 11/26/2020 7:39 PM CDT 100 mL lactated ringers IV bolus 1,000 mL, at 983.61 mL/hr, Administer over 61 Minutes, ONCE, 1 dose, On Mon11/27/20 at 0145 $ New Bag/Syringe 11/27/2020 1:53 AM CDT 1,000 mL 983.61 mL/hr lidocaine (Lidoderm) 5 % patch 1 patch 1 patch, Administer over 12 Hours, DAILY, First dose on 11/29/20 at 0900, Until Discontinued, Apply to left upper quadrant and remove patch after a max of 12 hours of application within a 24 hour period. $ Applied 11/29/2020 11:46 AM CDT 1 patch Abdominal Tissue oxyCODONE (immediate release) (Roxicodone) tablet 5 mg 5 mg, Oral, EVERY 6 HOURS PRN, Moderate Pain, Severe Pain, Starting on 11/28/20 at 1051, Until 11/29/20 at 1256 $ Given 11/28/2020 11:43 PM CDT 5 mg pantoprazole (Protonix) injection 40 mg 40 mg, Intravenous, DAILY, First dose on Mon11/27/20 at 0900, Until Discontinued, For every 40 mg of pantoprazole mix with 10 mL Normal Saline (final concentration = 4 mg/mL). Inject SLOWLY over 2 min. $ Given 11/29/2020 8:02 AM CDT 40 mg $ Given 11/28/2020 8:00 AM CDT 40 mg $ Given 11/27/2020 8:16 AM CDT 40 mg piperacillin - tazobactam (Zosyn) 3.375 g in 0.9% NaCl IV 55 mL IVPB 3.375 g, at 110 mL/hr, Intravenous, ONCE, 1 dose, On Mon11/27/20 at 0145, Infuse only initial dose of piperacillin-tazobactam over 30 min. Subsequent doses start 6 hours after initial dose and infused over 4 hours. (50 mL bag + 5 mL of bag overfill = 55 mL total volume to be infused), Indication for anti-infective therapy: Suspected infection, Site of anti-infective therapy: Intra-abdominal $ New Bag/Syringe 11/27/2020 2:38 AM CDT 3.375 g 110 mL/hr piperacillin - tazobactam (Zosyn) 3.375 g in 0.9% NaCl IV 55 mL IVPB 3.375 g, at 13.75 mL/hr, Intravenous, EVERY 8 HOURS, First dose on Mon11/27/20 at 0745, Until Discontinued, (50 mL bag + 5 mL of bag overfill = 55 mL total volume to be infused), Indication for anti-infective therapy: Suspected infection, Site of anti-infective therapy: Intra-abdominal $ New Bag/Syringe 11/28/2020 11:38 PM CDT 3.375 g 13.75 mL/hr $ New Bag/Syringe 11/28/2020 3:51 PM CDT 3.375 g 13.75 mL/hr $ New Bag/Syringe 11/28/2020 8:08 AM CDT 3.375 g 13.75 mL/hr potassium chloride (Klor-Con) packet 20 mEq 20 mEq, Oral, ONCE, 1 dose, On Mon11/29/20 at 0630, DISSOLVE IN 120 ML OF COLD WATER OR JUICE AND DRINK SLOWLY $ Given 11/29/2020 6:25 AM CDT 20 mEq potassium chloride ER (Klor-Con M) tablet 20 mEq 20 mEq, Oral, ONCE, 1 dose, On Mon11/27/20 at 0645, Do not crush or chew. $ Given 11/27/2020 6:42 AM CDT 20 mEq documented in this encounter Active and Recently Administered Medications Times are shown in CDT. Scheduled Medication Order 11/27/2020 11/28/2020 11/29/2020 0.9% NaCl injection 3 mL(Linked Group 1) 3 mL, Intracatheter, EVERY 8 HOURS, First dose on Diana 11/26/20 at 1645, Until Discontinued, Flush peripheral IV catheter with 3 mL of normal saline every 8 hours. 0215 (Not Administered - Provider: Dary Gordon RN - Reason: IV Currently Infusing)0234 (Not Administered - Provider: Dary Gordon RN - Reason: IV Currently Infusing)0613 (Not Administered - Provider: Dary Gordon RN - Reason: IV Currently Infusing)1400 (Due)2017 ($ Given - Provider: Anu Wright RN) 0440 ($ Given - Provider: Anu Wright RN)1544 ($ Given - Provider: Pearl Herrera RN)2333 (Not Administered - Provider: Myra Syed RN - Reason: IV Currently Infusing) 0415 (Not Administered - Provider: Myra Syed RN - Reason: IV Currently Infusing) acetaminophen (Tylenol) tablet 1,000 mg 1,000 mg, Oral, EVERY 8 HOURS, First dose on Mon11/27/20 at 0145, Until Discontinued 0236 ($ Given - Provider: Dary Gordon RN)0603 ($ Given - Provider: Dary Gordon RN)162 (Not Administered - Provider: Germania Armas RN - Reason: Refused-Patient)2016 (Not Administered - Provider: Anu Wright RN - Reason: Refused-Patient) 0440 ($ Given - Provider: Anu Wright RN)1544 ($ Given - Provider: Pearl Herrera RN)2334 ($ Given - Provider: Myra Syed RN) 0625 ($ Given - Provider: Myra Syed RN) cyclobenzaprine (Flexeril) tablet 10 mg 10 mg, Oral, 3 TIMES DAILY, First dose (after last modification) on Mon11/28/20 at 1100, Until Discontinued 1117 ($ Given - Provider: Pearl Herrera RN)1544 ($ Given - Provider: Pearl Herrera RN)2101 ($ Given - Provider: Myra Syed RN) 0802 ($ Given - Provider: Pearl Herrera RN) heparin injection 5,000 Units 5,000 Units, Subcutaneous, EVERY 8 HOURS, First dose on Mon11/27/20 at 0600, Until Discontinued 06 ($ Given - Provider: Dary Gordon RN)162 (Not Administered - Provider: Germania Armas RN - Reason: Patient Condition - Comment: Pt up and moving)2018 (Not Administered - Provider: Anu Wright RN - Reason: Refused-Patient) 044 (Not Administered - Provider: Anu Wright RN - Reason: Refused-Patient)1544 (Not Administered - Provider: Pearl Herrera RN - Reason: Refused-Patient)2102 (Not Administered - Provider: Myra Syed RN - Reason: Refused-Patient) 0630 ($ Given - Provider: Myra Syed RN) iopamidol (Isovue 300) 61 % contrast Oral, CONTRAST ONCE, Starting on Mon11/27/20 at 1327, Until Mon11/29/20 at 1256, Administer undiluted contrast for diagnostic imaging. 1327 ($ Given - Contrast - Provider: Sridevi Ruth, RT(R)) lactated ringers IV bolus (COMPLETED) 1,000 mL, at 983.61 mL/hr, Administer over 61 Minutes, ONCE, 1 dose, On Mon11/27/20 at 0145 0153 ($ New Bag/Syringe - Provider: Dary Gordon RN)0341 (Stopped - Provider: Dary Gordon RN) lidocaine (Lidoderm) 5 % patch 1 patch 1 patch, Administer over 12 Hours, DAILY, First dose on Mon11/29/20 at 0900, Until Discontinued, Apply to left upper quadrant and remove patch after a max of 12 hours of application within a 24 hour period. 1146 ($ Applied - Provider: Pearl Herrera RN)2346 (Due: Removed - Provider: Pearl Herrera RN) pantoprazole (Protonix) injection 40 mg 40 mg, Intravenous, DAILY, First dose on Mon11/27/20 at 0900, Until Discontinued, For every 40 mg of pantoprazole mix with 10 mL Normal Saline (final concentration = 4 mg/mL). Inject SLOWLY over 2 min. 0816 ($ Given - Provider: Yani Booth RN) 0800 ($ Given - Provider: Pearl Herrera, EMERALD) 0802 ($ Given - Provider: Pearl Herrera RN) piperacillin - tazobactam (Zosyn) 3.375 g in 0.9% NaCl IV 55 mL IVPB (COMPLETED) 3.375 g, at 110 mL/hr, Intravenous, ONCE, 1 dose, On Mon11/27/20 at 0145, Infuse only initial dose of piperacillin-tazobacta m over 30 min. Subsequent doses start 6 hours after initial dose and infused over 4 hours. (50 mL bag + 5 mL of bag overfill = 55 mL total volume to be infused), Indication for anti-infective therapy: Suspected infection, Site of anti-infective therapy: Intra-abdominal 0238 ($ New Bag/Syringe - Provider: Dary Gordon RN)0341 (Stopped - Provider: Dary Gordon RN) piperacillin - tazobactam (Zosyn) 3.375 g in 0.9% NaCl IV 55 mL IVPB (CANCELED) 3.375 g, at 13.75 mL/hr, Intravenous, EVERY 8 HOURS, First dose on Mon11/27/20 at 0745, Until Discontinued, (50 mL bag + 5 mL of bag overfill = 55 mL total volume to be infused), Indication for anti-infective therapy: Suspected infection, Site of anti-infective therapy: Intra-abdominal 0816 ($ New Bag/Syringe - Provider: Yani Booth RN)1247 (Stopped - Provider: Germania Armas RN)1617 ($ New Bag/Syringe - Provider: Germania Armas RN)2000 (Stopped - Provider: Anu Wright RN)2350 ($ New Bag/Syringe - Provider: Anu Wright RN) 0340 (Stopped - Provider: Anu Wright RN)0808 ($ New Bag/Syringe - Provider: Pearl Herrera RN)1234 (Stopped - Provider: Pearl Herrera RN)1551 ($ New Bag/Syringe - Provider: Pearl Herrera RN)2104 (Stopped - Provider: Myra Syed RN)2338 ($ New Bag/Syringe - Provider: Myra Syed RN) 0316 (Stopped - Provider: Myra Syed RN) potassium chloride (Klor-Con) packet 20 mEq (COMPLETED) 20 mEq, Oral, ONCE, 1 dose, On Mon11/29/20 at 0630, DISSOLVE IN 120 ML OF COLD WATER OR JUICE AND DRINK SLOWLY 0625 ($ Given - Provider: Myra Syed RN) potassium chloride ER (Klor-Con M) tablet 20 mEq (COMPLETED) 20 mEq, Oral, ONCE, 1 dose, On Mon11/27/20 at 0645, Do not crush or chew. 0642 ($ Given - Provider: Paris Danielle, RN) Continuous Medication Order 11/27/2020 11/28/2020 11/29/2020 dextrose 5% and 0.45% NaCl with KCl 20 mEq infusion (CANCELED) at 50 mL/hr, Intravenous, CONTINUOUS, Starting on 11/27/20 at 0200, Until 11/28/20 at 1052 0345 ($ New Bag/Syringe - Provider: Dary Gordon, RN)0812 (Rate Change - Provider: Yani Booth, RN)1629 ($ New Bag/Syringe - Provider: Germania Armas, EMERALD) 0804 (Rate Change - Provider: Pearl Herrera, EMERALD)1234 (Stopped - Provider: Pearl Herrera, EMERALD) dextrose 5% and 0.45% NaCl with KCl 20 mEq infusion at 75 mL/hr, Intravenous, CONTINUOUS, Starting on 11/28/20 at 1515, Until 11/29/20 at 1256 1549 ($ New Bag/Syringe - Provider: Pearl Herrera, EMERALD) 1124 (Stopped - Provider: Pearl Herrera, EMERALD) PRN Medication Order 11/27/2020 11/28/2020 11/29/2020 0.9% NaCl injection 1-10 mL(Linked Group 1) 1-10 mL, Intracatheter, PRN, Other, peripheral line flush, Starting on Diana 11/26/20 at 1605, Until 11/29/20 at 1256, Flush peripheral IV catheter with 1-10 mL of normal saline before and after medications and prn to clear blood from the line or to verify patency. HYDROmorphone (Dilaudid) injection 0.2 mg (CANCELED) 0.2 mg, Intravenous, EVERY 3 HOURS PRN, For Breakthrough Pain, Starting on 11/28/20 at 0719, Until 11/28/20 at 1052 0817 ($ Given - Provider: Pearl Herrera, EMERALD) HYDROmorphone (Dilaudid) injection 0.4 mg (CANCELED)(Linked Group 2) 0.4 mg, Intravenous, EVERY 3 HOURS PRN, Severe Pain, Starting on Mon11/27/20 at 0143, Until 11/28/20 at 0720 0200 ($ Given - Provider: Dary Gordon, RN)0605 ($ Given - Provider: Dary Gordon RN)0841 ($ Given - Provider: Yani Booth RN)1255 ($ Given - Provider: Herbert Jordan, RN)1625 ($ Given - Provider: Germania Armas, RN)2017 ($ Given - Provider: Anu Wright, RN)2354 ($ Given - Provider: Anu Wright RN) 0440 ($ Given - Provider: Anu Wright RN) oxyCODONE (immediate release) (Roxicodone) tablet 5 mg(Linked Group 3) 5 mg, Oral, EVERY 6 HOURS PRN, Moderate Pain, Severe Pain, Starting on 11/28/20 at 1051, Until 11/29/20 at 1256 2343 ($ Given - Provider: Myra Syed RN) Linked Groups Order Group 1: SALINE LOCK, INSERT AND MAINTAIN (CANCELED) Routine, CONTINUOUS, Starting on Mon11/26/20 at 1615, Until Specified, New collection, Task Completed: Yes And 0.9% NaCl injection 3 mLJump to med 3 mL, Intracatheter, EVERY 8 HOURS, First dose on Mon11/26/20 at 1645, Until Discontinued, Flush peripheral IV catheter with 3 mL of normal saline every 8 hours. And 0.9% NaCl injection 1-10 mLJump to med 1-10 mL, Intracatheter, PRN, Other, peripheral line flush, Starting on Mon11/26/20 at 1605, Until 11/29/20 at 1256, Flush peripheral IV catheter with 1-10 mL of normal saline before and after medications and prn to clear blood from the line or to verify patency. 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 [id number] PCP - General Family Medicine 11/26/20 11/05/23 documented as of this encounter
--- OUTSIDE RECORDS SUMMARY | 2024-03-16 15:21 | XMS_ITS | Encounter Summary ---
Author Organization [facility] Address [address] [facility] [place] [address] Care Team Providers Care Care Management Associate Name Role Phone Helga Brewster APRN-MAORI LIAISON ADVISER Primary Care Provider Reason for Referral * Neurology (Routine) - Closed Specialty Diagnoses / Procedures Referred By Keke t Referred To Contact Neuroscience Diagnoses Cervicalgia Procedures EMG WITH NERVE CONDUCTION STUDY Sergio Park MD [address] [place] [address] Referral ID Status Reason Start Date Expiration Date Visits Re quested Visits Authorized [id number] Closed 11/06/2023 11/05/2024 1 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 Visit * Neurology (Routine) - Closed Specialty Diagnoses / Procedures Referred By Contac t Referred To Contact Neuroscience Diagnoses Cervicalgia Procedures EMG WITH NERVE CONDUCTION STUDY Sergio Park MD [address] [facility] [place] [address] Referral ID Status Reason Start Date Expiration Date Visits Re quested Visits Authorized [id number] Closed 11/06/2023 11/05/2024 1 1 Encounter Details Date Type Department Care Team (Late st Contact Info) Description 02/08/2024 1:41 PM 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 11/02/2023 documented as of this encounter Procedure Notes * Madison Rajput DO - 02/08/2024 11:59 PM CST Images from the original note were not included. [address] [address] Electrodiagnostic testing was explained to the patient, and he/she/they were allowed adequate opportunity to ask questions or discuss the EDX testing evaluation. The patient verbalized consent and gave permission for Electrodiagnostic testing. Full Name: Dinesh Dover Procedure #: [id number] Gender: Male Date of : 1970 Visit Date: 02/08/2024 14:06 Age: 54 Years Examining Physician: Madison Rajput DO Referring Physician: Sergio Park MD Technologist: JOSY Height: 6 feet 0 inch Weight: 180 lbs BMI: 24.4 Reason for visit: Dinesh Dover II is a 54 year old man who presents of evaluation of bilateral upper limb paresthesias SNC Nerve / Sites Rec. Site Onset Lat Peak Lat PP Amp Segments Distance Peak Diff Velocity Temp. ms ms ??V mm ms m/s ??C R Median - Digit III (Antidromic) 14 cm Wrist Dig III 3.2 4.0 20.2 Wrist - Dig III 140 44 29.9 Ref. <=3.6 >=20.0 Ref. R Radial - Anatomical snuff box (Forearm) Forearm Wrist 1.6 2.3 30.0 Forearm - Wrist 100 62 29 Ref. <=2.5 >=15.0 Ref. >=53 L Radial - Anatomical snuff box (Forearm) Forearm Wrist 1.7 2.3 24.1 Forearm - Wrist 100 59 29.8 Ref. <=2.5 >=15.0 Ref. >=53 R Median, Ulnar - Transcarpal comparison Median Palm Wrist 1.8 2.6 39.5 Median Palm - Wrist 80 44 29.7 Ref. <=2.2 >=40.0 Ref. >=53 Ulnar Palm Wrist 1.4 1.9 14.7 Ulnar Palm - Wrist 80 57 29.8 Ref. <=2.1 >=11.0 Ref. >=53 Median Palm - Ulnar Palm 0.7 29.8 Ref. <=0.4 L Median, Ulnar - Transcarpal comparison Median Palm Wrist 1.5 2.1 41.0 Median Palm - Wrist 80 53 29.6 Ref. <=2.2 >=40.0 Ref. >=53 Ulnar Palm Wrist 1.4 1.8 14.9 Ulnar Palm - Wrist 80 59 29.6 Ref. <=2.1 >=11.0 Ref. >=53 Median Palm - Ulnar Palm 0.3 29.6 Ref. <=0.4 R Median, Radial - Thumb comparison Median Wrist Thumb 2.9 3.6 13.4 Median Wrist - Thumb 100 35 30.2 Radial Wrist Thumb 2.0 2.7 4.7 Radial Wrist - Thumb 100 49 30.3 Median Wrist - Radial Wrist 1.0 30.3 Ref. <=0.4 L Median, Radial - Thumb comparison Median Wrist Thumb 2.2 2.9 20.5 Median Wrist - Thumb 100 46 29.3 Radial Wrist Thumb 2.0 2.6 9.2 Radial Wrist - Thumb 100 51 29.2 Median Wrist - Radial Wrist 0.3 29.2 Ref. <=0.4 Sensory NCS Nerve / Sites Rec. Site Onset Lat Peak Lat ASSORTER LAUNDRY Amp PP Amp Segments Distance Velocity Temp. ms ms ??V ??V mm m/s ??C R Median - Dig II (Antidromic) Wrist Index 3.08 3.90 10.6 7.8 Wrist - Index 140 45 29.9 Ref. <=3.30 <=4.00 Ref. R Ulnar - Dig V (Antidromic) Wrist Dig V 2.67 3.40 2.4 4.7 Wrist - Dig V 140 53 30.1 Ref. <=3.10 <=4.00 Ref. MNC Nerve / Sites Muscle Latency Amplitude Segments Lat Diff Distance Velocity ms mV ms mm m/s R Median - APB Wrist APB 4.3 5.1 Wrist - APB 70 Ref. <=4.5 >=3.0 Ref. Elbow APB 9.2 5.1 Elbow - Wrist 4.9 240 49 Ref. Ref. >=48 L Median - APB Wrist APB 3.7 5.7 Wrist - APB 70 Ref. <=4.5 >=3.0 Ref. Elbow APB 8.8 6.0 Elbow - Wrist 5.1 255 50 Ref. Ref. >=48 R Ulnar - ADM Wrist ADM 2.7 11.2 Wrist - ADM 70 Ref. <=3.6 >=5.0 Ref. B.Elbow ADM 6.5 9.5 B.Elbow - Wrist 3.8 225 60 Ref. Ref. >=48 A.Elbow ADM 8.2 9.4 A.Elbow - B.Elbow 1.7 100 59 Ref. Ref. >=48 A.Elbow - Wrist 5.5 L Ulnar - ADM Wrist ADM 2.3 14.1 Wrist - ADM 70 Ref. <=3.6 >=5.0 Ref. B.Elbow ADM 6.1 11.7 B.Elbow - Wrist 3.8 220 59 Ref. Ref. >=48 A.Elbow ADM 7.7 11.2 A.Elbow - B.Elbow 1.6 90 57 Ref. Ref. >=48 A.Elbow - Wrist 5.3 F Wave Nerve F Lat Ref. M Lat Min F Lat Ref. Min M Lat ms ms ms ms ms ms R Median - APB 30.1 <=31.0 4.2 30.1 <=31.0 4.2 R Ulnar - ADM 28.8 <=32.0 3.3 28.8 <=32.0 3.3 L Median - APB 28.6 <=31.0 3.1 28.6 <=31.0 3.1 L Ulnar - ADM 26.6 <=32.0 3.0 26.6 <=32.0 3.0 EMG Summary Table Insertional Spontaneous Volitional MUAPs Muscle Nerve Roots Insertional Fib PSW Fasc Duration Amplitude Poly Recruitment R. First dorsal interosseous Ulnar C8-T1 Normal None None None Normal Normal None Normal R. Triceps brachii Radial C6-C8 Normal None None None Normal Normal None Normal R. Biceps brachii Musculocutaneous C5-C6 Normal None None None Normal Normal None Normal R. Extensor digitorum communis Radial C7-C8 Normal None None None Normal Normal None Normal R. APB Median C8-T1 Normal None None None Normal Normal None Normal R. Cervical paraspinals Spinal C4-C8 Normal None None None Normal Normal None Normal Dinesh Dover [id number] 02/08/2024 14:06 2 of 4 Interpretation: NCS The bilateral median motor NCSs at the APB were normal The bilateral ulnar motor NCSs at the ADM were normal The right median-ulnar comparative mixed NCS revealed a >0.4 ms peak latency difference; the left was normal The right median-radial comparative mixed NCS revealed a >0.4 ms peak latency difference; the left was normal The right median sensory NCS at digit II was normal The right median sensory NCS at digit III revealed a prolonged peak latency and normal SNAP amplitude The ulnar sensory NCS at digit V was normal The bilateral radial sensory NCSs at digit I were normal F- wave The bilateral median F- wave were normal The bilateral ulnar F- wave were normal EMG EMG of the sampled proximal and distal right upper limb muscles was normal. Conclusions: Mild, right median mononeuropathy at or distal to the wrist also known as carpal tunnel syndrome There is no EDX evidence of a cervical radiculopathy in the right upper limb. Note: This study cannot rule out the possibility of a sensory radiculopathy. Clinical correlation recommended. 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 [address] [address] Electrodiagnostic testing was explained to the patient, and he/she/they were allowed adequate opportunity to ask questions or discuss the EDX testing evaluation. The patient verbalized consent and gave permission for Electrodiagnostic testing. Full Name: Dinesh Dover Procedure #: [id number] Gender: Male Date of : 1970 Visit Date: 02/08/2024 14:06 Age: 54 Years Examining Physician: Madison Rajput DO Referring Physician: Sergio Park MD Technologist: JOSY Height: 6 feet 0 inch Weight: 180 lbs BMI: 24.4 Reason for study: Dinesh Dover II is a 54 year old man who presents for bilateral hand paresthesias. SNC Nerve / Sites Rec. Site Onset Lat Peak Lat PP Amp Segments Distance Peak Diff Velocity Temp. ms ms ??V mm ms m/s ??C R Median - Digit III (Antidromic) 14 cm Wrist Dig III 3.2 4.0 20.2 Wrist - Dig III 140 44 29.9 Ref. <=3.6 >=20.0 Ref. R Radial - Anatomical snuff box (Forearm) Forearm Wrist 1.6 2.3 30.0 Forearm - Wrist 100 62 29 Ref. <=2.5 >=15.0 Ref. >=53 L Radial - Anatomical snuff box (Forearm) Forearm Wrist 1.7 2.3 24.1 Forearm - Wrist 100 59 29.8 Ref. <=2.5 >=15.0 Ref. >=53 R Median, Ulnar - Transcarpal comparison Median Palm Wrist 1.8 2.6 39.5 Median Palm - Wrist 80 44 29.7 Ref. <=2.2 >=40.0 Ref. >=53 Ulnar Palm Wrist 1.4 1.9 14.7 Ulnar Palm - Wrist 80 57 29.8 Ref. <=2.1 >=11.0 Ref. >=53 Median Palm - Ulnar Palm 0.7 29.8 Ref. <=0.4 L Median, Ulnar - Transcarpal comparison Median Palm Wrist 1.5 2.1 41.0 Median Palm - Wrist 80 53 29.6 Ref. <=2.2 >=40.0 Ref. >=53 Ulnar Palm Wrist 1.4 1.8 14.9 Ulnar Palm - Wrist 80 59 29.6 Ref. <=2.1 >=11.0 Ref. >=53 Median Palm - Ulnar Palm 0.3 29.6 Ref. <=0.4 R Median, Radial - Thumb comparison Median Wrist Thumb 2.9 3.6 13.4 Median Wrist - Thumb 100 35 30.2 Radial Wrist Thumb 2.0 2.7 4.7 Radial Wrist - Thumb 100 49 30.3 Median Wrist - Radial Wrist 1.0 30.3 Ref. <=0.4 L Median, Radial - Thumb comparison Median Wrist Thumb 2.2 2.9 20.5 Median Wrist - Thumb 100 46 29.3 Radial Wrist Thumb 2.0 2.6 9.2 Radial Wrist - Thumb 100 51 29.2 Median Wrist - Radial Wrist 0.3 29.2 Ref. <=0.4 Sensory NCS Nerve / Sites Rec. Site Onset Lat Peak Lat ASSORTER LAUNDRY Amp PP Amp Segments Distance Velocity Temp. ms ms ??V ??V mm m/s ??C R Median - Dig II (Antidromic) Wrist Index 3.08 3.90 10.6 7.8 Wrist - Index 140 45 29.9 Ref. <=3.30 <=4.00 Ref. R Ulnar - Dig V (Antidromic) Wrist Dig V 2.67 3.40 2.4 4.7 Wrist - Dig V 140 53 30.1 Ref. <=3.10 <=4.00 Ref. MNC Nerve / Sites Muscle Latency Amplitude Segments Lat Diff Distance Velocity ms mV ms mm m/s R Median - APB Wrist APB 4.3 5.1 Wrist - APB 70 Ref. <=4.5 >=3.0 Ref. Elbow APB 9.2 5.1 Elbow - Wrist 4.9 240 49 Ref. Ref. >=48 L Median - APB Wrist APB 3.7 5.7 Wrist - APB 70 Ref. <=4.5 >=3.0 Ref. Elbow APB 8.8 6.0 Elbow - Wrist 5.1 255 50 Ref. Ref. >=48 R Ulnar - ADM Wrist ADM 2.7 11.2 Wrist - ADM 70 Ref. <=3.6 >=5.0 Ref. B.Elbow ADM 6.5 9.5 B.Elbow - Wrist 3.8 225 60 Ref. Ref. >=48 A.Elbow ADM 8.2 9.4 A.Elbow - B.Elbow 1.7 100 59 Ref. Ref. >=48 A.Elbow - Wrist 5.5 L Ulnar - ADM Wrist ADM 2.3 14.1 Wrist - ADM 70 Ref. <=3.6 >=5.0 Ref. B.Elbow ADM 6.1 11.7 B.Elbow - Wrist 3.8 220 59 Ref. Ref. >=48 A.Elbow ADM 7.7 11.2 A.Elbow - B.Elbow 1.6 90 57 Ref. Ref. >=48 A.Elbow - Wrist 5.3 F Wave Nerve F Lat Ref. M Lat Min F Lat Ref. Min M Lat ms ms ms ms ms ms R Median - APB 30.1 <=31.0 4.2 30.1 <=31.0 4.2 R Ulnar - ADM 28.8 <=32.0 3.3 28.8 <=32.0 3.3 L Median - APB 28.6 <=31.0 3.1 28.6 <=31.0 3.1 L Ulnar - ADM 26.6 <=32.0 3.0 26.6 <=32.0 3.0 EMG Summary Table Insertional Spontaneous Volitional MUAPs Muscle Nerve Roots Insertional Fib PSW Fasc Duration Amplitude Poly Recruitment R. First dorsal interosseous Ulnar C8-T1 Normal None None None Normal Normal None Normal R. Triceps brachii Radial C6-C8 Normal None None None Normal Normal None Normal R. Biceps brachii Musculocutaneous C5-C6 Normal None None None Normal Normal None Normal R. Extensor digitorum communis Radial C7-C8 Normal None None None Normal Normal None Normal R. APB Median C8-T1 Normal None None None Normal Normal None Normal R. Cervical paraspinals Spinal C4-C8 Normal None None None Normal Normal None Normal Dinesh Dover [id number] 02/08/2024 14:06 4 of 4 Interpretation: NCS The right median sensory NCS at digit III revealed a prolonged peak latency and normal SNAP amplitude The right median-radial thumb comparison NCS revealed a greater than 0.4 ms peak latency difference; the left was normal The right median-ulnar transcarpal comparison NCS revealed a greater than 0.5 ms peak latency difference; the left was normal The right ulnar sensory NCS at digit V was normal The right median sensory NCS at digit II was normal The bilateral radial sensory NCSs at digit I were normal The bilateral median motor NCSs at the APB were normal The bilateral ulnar motor NCSs at the ADM were normal The bilateral median F-waves were normal The bilateral ulnar F-waves were normal EMG EMG of the right FDI, triceps, APB, EDC and cervical paraspinal muscles was normal. Conclusions: Mild, right median sensory mononeuropathy at or distal to the wrist, also known as carpal tunnel syndrome. There is no electrodiagnostic evidence for a left upper limb mononeuropathy or right cervical radiculopathy. Please note: This study cannot exclude the possibility of a cervical radiculopathy affecting sensory fibers. Clinical and imaging correlation recommended. 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 Author Medication Management General On track( 021 8:26 AM CDT) Kristin Padron, EMERALD Note: Expected end date: ongoing Interventions: Take all medications as prescribed Let your doctor know right away about any changes in your medications Make sure to request a refill of your medication at least one week prior to your last dose documented as of this encounter Visit Diagnoses Diagnosis Cervicalgia documented in this encounter Care Teams Care Management Associate Relationship Specialty Start Date End Date Helga Brewster, SEO ANALYST-MAORI LIAISON ADVISER [address] [place] [address] PCP - General Family Medicine 11/06/23 documented as of this encounter
--- OUTSIDE RECORDS SUMMARY | 2024-03-16 15:21 | XMS_ITS | Encounter Summary ---
Author Organization [facility] Address [address] [place] [address] Care Team Providers Care Flooring Salesperson Name Role Phone Jeimy Kathleen MD Primary Care Provider [phone] Reason for Visit * Reason Comments Appointment Encounter Details Date Type Department Care Team (Late st Contact Info) Description 06/25/2021 Telephone [facility] - [address] [address] Cristin Randall, RN Appointment Social History Tobacco Use Types Packs/Day Years [...] No 11/28/2020 documented as of this encounter Progress Notes * Cristin Randall RN - 06/25/2021 3:08 PM CDT Spoke to patient to confirm appt 06/30 at 8:30am documented in this encounter Plan of Treatment Not on file documented as of this encounter Goals Goal Patient Goal Type Associated Problems Recent Progress Patient-Stated? Author Medication Management General On track( 021 8:26 AM CDT) No Kristin Cedeno RN Note: Expected end date: ongoing Interventions: Take all medications as prescribed Let your doctor know right away about any changes in your medications Make sure to request a refill of your medication at least one week prior to your last dose documented as of this encounter Visit Diagnoses Not on filedocumented in this encounter Care Teams Flooring Salesperson Relationship Specialty Start Date End Date Jeimy Kathleen MD [address] [place] [address] MARÍA Moody [phone] PCP - General Family Medicine 11/26/20 11/05/23 documented as of this encounter
--- OUTSIDE RECORDS SUMMARY | 2024-03-16 15:21 | XMS_ITS | Encounter Summary ---
Author Organization [facility] Address [address] [place] [address] Care Team Providers Care Driver Manager Name Role Phone Helga Brewster APRN-GAME TESTER Primary Care Provider Reason for Referral * Consultation (Routine) - Closed Specialty Diagnoses / Procedures Referred By Keke t Referred To Contact Pain Management Diagnoses Cervicalgia Sergio Park MD [address] [facility] [place] [address] Duglas Oconnell MD [address] [facility] [address] [place] [address] Referral ID Status Reason Start Date Expiration Date V isits Requested Visits Authorized [id number] Closed Specialty Services Required 11/06/2023 11/05/2024 1 1 * Neurology (Routine) - Closed Specialty Diagnoses / Procedures Referred By Contac t Referred To Contact Neuroscience Diagnoses Cervicalgia Procedures EMG WITH NERVE CONDUCTION STUDY Sergio Park MD [address] [facility] [place] [address] Referral ID Status Reason Start Date Expiration Date Visits Re quested Visits Authorized [id number] Closed 11/06/2023 11/05/2024 1 1 * PT/OT/ST (Routine) - Pending Review Specialty Diagnoses / Procedures Referred By Keke t Referred To Contact Diagnoses Cervicalgia Sergio Park MD [address] [facility] [place] [address] Referral ID Status Reason Start Date Expiration Date Visits Requested Visits Authorized [id number] Pending Review Specialty Services Required 11/06/2023 11/05/2024 1 1 Reason for Visit * Reason Comments Pain Back C Spine Encounter Details Date Type Department Care Team (Late st Contact Info) Description 11/06/2023 9:15 AM CDT Office Visit [facility] - Orthopedic Surgery [address] [place] [phone] Sergio Park MD [address] [facility] [place] [address] Cervicalgia (Primary Dx) Social History Tobacco Use Types Packs/Day Years [...] Sign Reading Time Taken Comments Blood Pressure - - Pulse - - Temperature - - Respiratory Rate - - Oxygen Saturation - - Inhaled Oxygen Concentration - - Weight 80.7 kg (178 lb) 11/06/2023 9:01 AM CDT Height 182.9 cm (6') 11/06/2023 9:01 AM CDT Body Mass Index 24.14 11/06/2023 9:01 AM CDT documented in this encounter Functional [...] as of this encounter Progress Notes * Donny Ferraro MD - 11/06/2023 9:14 AM CDT [facility] Orthopedic Spine Surgery Clinic Note Dinesh Dover II, 53 year old, male : 1970 CSN: [id number] Primary Care Physician: Helga Brewster, EDI DEVELOPER-GAME TESTER Diagnosis/Procedures 1.) cervicalgia HPI Date of this clinic visit: 11/06/2023 This is a 53 year old male with history of diagnosis above who is here for a new patient clinic appointment. The patient reports neck pain that travels into both his arms. He states both his hands are numb and this numbness has become progressively worse. Of note, his left arm is worse than his left. 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 With regard to his balance he occasionally will lose balance but very rarely. He is taking opioids for his pain; he has never tried a medrol dose pack. ROS otherwise negative. Smoking status: Current 0.5 PPD Diabetic: no Objective Ht 1.829 m (6') Wt 80.7 kg (178 lb) PMHx Past Medical History: Diagnosis Date Chong's esophagus Colon polyps Gastroschisis (HCC) PSHx Past Surgical History: Procedure Laterality Date OTHER SURGERY abdominal reconstruction with mesh Social Hx Social History Tobacco Use Smoking status: Every Day Packs/day: 1.00 Years: 20.00 Additional pack years: 0.00 Total pack years: 20.00 Types: Cigarettes Smokeless tobacco: Never Substance Use Topics Alcohol use: Never Family Hx family history is not on file. Allergies No Known Allergies Medications Current Outpatient Medications Medication acetaminophen (Tylenol) 500 MG tablet alfuzosin CR 24hr (Uroxatral) 10 MG tablet baclofen (Lioresal) 10 MG tablet cyclobenzaprine (FLEXERIL) 10 MG tablet gabapentin (Neurontin) 100 MG capsule HYDROcodone-acetaminophen (Chebanse) 5-325 MG tablet lidocaine (Lidoderm) 5 % patch pantoprazole EC (PROTONIX) 40 MG tablet penicillin v potassium (Veetids) 500 MG tablet No current facility-administered medications for this visit. Review of Systems - Bowel/Bladder incontinence or retention: Denies - Numbness/paresthesias to extremities: Present - Hand clumsiness/loss of fine motor skills: Present - Balance problems: Reports rare instances where he feels like he trips Review of all other systems was negative. Physical Exam General appearance: awake, cooperative, NAD Bilateral Upper Extremity: - Motor: Shoulder Abduction (C5) NT 2/2 pain Elbow Extension (C7) NT 2/2 pain Elbow Flexion (C5-palm up; C6 - thumb up) NT 2/2 pain Wrist Extension (C6) NT 2/2 pain Wrist Flexion (C7) NT 2/2 pain Finger Flexion (C8) NT 2/2 pain Finger Abduction (T1) NT 2/2 pain - Sensory: Intact to light touch distally - Uribe's sign is negative - Reflexes: Biceps: Normal Triceps: Normal BR: Normal Bilateral Lower Extremity: - Motor: Hip Flexion (L2/3) 5/5 Knee Flexion 5/5 Knee Extension (L4) 5/5 Ankle Dorsiflexion (L5) 5/5 Great Toe Extension (L5) 5/5 Ankle Plantarflexion (S1) 5/5 - Sensation: Intact to light touch distally - Straight Leg Raise: negative bilaterally - Clonus: not assessed - Reflexes: Knee Jerk: Normal Achilles: Normal Babinski: Deferred Imaging - MRI Cervical reviewed. Demonstrate no compression on the spinal cord. Assessment/Plan: Dinesh Dover II is a 53 year old male with axial back pain. The patient demonstrates signs of axial back pain and peripheral neuropathy. A NCS would be useful to diagnose peripheral nerve compression.The patient rests in a cervical kyphosis and PT would help this neck posture. With regard to his main concern, his axial pain, a Zynex spinal cord stimulator will help relieve these distressing symptoms. He can trial this stimulator and follow up as needed. - Patient was counseled to the nature of their diagnosis and demonstrated understanding -Spinal cord stimulator- Zynex Pro 627 - flexeril - PT referral -NCS study - pain management referral - Lifting/Activity restrictions: none - No lifting greater than 10 lbs, no repetitiive bending or twisting - Follow up PRN Donny Ferraro MD 11/06/2023 Associated attestation - Sergio Park MD - 11/06/2023 11:55 AM CDT I personally saw, evaluated, examined and participated in the management of this patient during their clinic visit. I have reviewed all radiographic studies. I reviewed the resident's clinic note, made appropriate edits and additions and agree with the remainder of their findings. Please see their note for further details. I confirm the treadwell elements of the history. I have discussed the results ofthe physical exam and all studies with the patient. I personally developed the noted assessment anddiscussed it with the patient. I confirm the treadwell elements of the plan of care. Please do not hesitate to contact me with questions regarding him or any other patient in the future. Our clinical specialist, can be reached at [phone]. Sincerely, Sergio Prak MD documented in this encounter Plan of Treatment Scheduled Orders Name Type Priority Associated Diagnoses Orde r Schedule EMG WITH NERVE CONDUCTION STUDY Neurology Routine Cervicalgia 1 Occurrences starting 11/06/2023 until 11/05/2024 Scheduled Referrals Name Type Priority Associated Diagnoses Order Schedule AMB REFERRAL TO PHYSICAL THERAPY Outpatient Referral Routine Cervicalgia 1 Occurrences starting 11/06/2023 until 11/05/2024 AMB REFERRAL TO PAIN CLINIC Outpatient Referral Routine Cervicalgia 1 Occurrences starting 11/06/2023 until 11/05/2024 documented as of this encounter Goals Goal [...] as of this encounter Visit Diagnoses Diagnosis Cervicalgia- Primary documented in this encounter Care Teams Driver Manager Relationship Specialty Start Date End Date Helga Brewster, EDI DEVELOPER-GAME TESTER [address] [place] [address] PCP - General Family Medicine 11/06/23 documented as of this encounter
--- OUTSIDE RECORDS SUMMARY | 2024-03-16 15:21 | XMS_ITS | Encounter Summary ---
Author Organization [facility] Address [address] [place] [address] Care Team Providers Care Informatics Physician Liaison Name Role Phone Jeimy Kathleen MD Primary Care Provider [phone] Reason for Referral * Evaluate (Routine) - Closed Specialty Diagnoses / Procedures Referred By Contac t Referred To Contact Diagnoses Esophagus, Chong's Hx of colon cancer, stage I Procedures AMB CONSULT TO GASTROENTEROLOGY Julio César Ibrahim MD [address] [place] [address] [address] [place] [address] Adrianna Long MD [address] [place] [address] [address] DIV [place] [address] Referral ID Status Reason Start Date Expiration Date Visits Re quested Visits Authorized [id number] Closed 12/09/2020 12/09/2021 1 1 Reason for Visit * Reason Comments Establish Care Encounter Details Date Type Department Care Team (Late st Contact Info) Description 12/09/2020 1:45 PM CDT Office Visit [facility] [place] [address] Intestinal malrotation (HCC) (Primary Dx); Chong's esophagus with dysplasia Social History Tobacco Use Types Packs/Day Years [...] Sign Reading Time Taken Comments Blood Pressure 130/77 12/09/2020 1:39 PM CDT Pulse 85 12/09/2020 1:39 PM CDT Temperature 36.8 ??C (98.2 ??F) 12/09/2020 1:39 PM CD T Respiratory Rate - - Oxygen Saturation 98% 12/09/2020 1:39 PM CDT Inhaled Oxygen Concentration - - Weight 88.5 kg (195 lb) 12/09/2020 1:39 PM CDT Height 182.9 cm (6') 12/09/2020 1:39 PM CDT Body Mass Index 26.45 12/09/2020 1:39 PM CDT documented in this encounter Functional [...] this encounter Patient Instructions * Patient Instructions* Saturnino iWng MD - 12/09/2020 2:34 PM CDT - Patient still presenting some abdominal pain/discomfort. No obstruction or signs of volvulus requiring intervention - Recommend GI consult for Chong's esophagus and for colonoscopy also for eval for chronic abdominal pain (call to make an appointment) - Continue Tylenol 1000 mg every 8 hs for pain and oxy only for severe pain. Can take flexeril three times a day for muscle spasms - Follow up in 3-4 weeks with [facility] for evaluate for abdominal pain documented in this encounter Progress Notes * Hossein Ames S - 12/09/2020 2:31 PM CDT /[facility] Department of Surgery Progress Note [facility] [address] [place] [address] Dept: [phone] Dept Date: December 09, 2020 Attending: Dr. Ibrahim SUBJECTIVE: Dinesh Dover is a 50 year old male with PMHx of Gastroschisis s/p surgical repair, GERD presenting for follow up from hospital admission on 11/27/20. During admission, CT Abdomen showed intestinalmalrotation with reversal of SMA and SMV relation. No volvulus or obstruction seen. Due to his benign physical exam and HD stable, no surgical intervention was recommended. Over the past week and a half the patient is still experiencing pain in his LUQ with exertion. He says that it is constantly 3-4/10 and is preventing him from being able to work. He has still been needing to take his oxy but is trying to take less. He said that he has been able to eat well, urinate, and has been having a BM everyday w/ Miralax. He denies any nausea/vomiting, constipation, diarrhea, or hematochezia. OBJECTIVE: Vital Signs: BP 130/77 Pulse 85 Temp 98.2 ??F (36.8 ??C) Ht 6' (1.829 m) Wt 195 lb (88.5 kg) SpO2 98% BMI 26.45 kg/m2 Physical Exam: General: In no acute distress. Alert and appropriate. HEENT: Normocephalic. Atraumatic. Lungs: Clear bilaterally. Normal work of breathing on room air. Heart: Regular rate and rhythm. Abdomen: Soft. Non distended. No rebound or guarding. Non peritoneal. Tender to palpation of LUQ Extremities: Extremities are warm and well perfused. No edema. Palpable pulses in bilateral lower extremities. Labs: Recent Labs Component Name 11/29/20 0139 11/28/20 0152 11/27/20 0343 WBC 7.9 8.4 8.2 HGB 15.9 16.0 15.2 HCT 47.1 47.2 44.8 MCV 88.2 87.9 87.2 Recent Labs Component Name 11/29/20 0139 11/28/20 1348 11/28/20 0152 11/27/20 0343 11/27/20 0343 NA 142 140 142 - 139 CL 108* 106 107 - 106 CO2 25 25 24 - 26 BUN 10 11 11 - 16 CREATININE 1.24* 1.30* 1.29* - 1.14 CALCIUM 9.0 9.3 9.0 - 9.1 MAGNESIUM 2.3 - 2.3 - 2.2 PHOS 3.5 - 4.0 - 3.7 - = values in this interval not displayed. Recent Labs Component Name 11/26/20 1611 04/19/17 0754 PROT 7.1 6.2 ALB 4.0 3.7 TBILI 0.8 0.9 AST 22 15 ALT 34 18 ALKPHOS 89 76 Recent Labs Component Name 04/19/17 0406 INR 1.1 PTT 28.8 ASSESSMENT: Dinesh Dover is a 50 year old male who presents to clinic for follow up from hospital admissionon 11/27/20 PLAN: - Patient still presenting some abdominal pain/discomfort. No obstruction or signs of volvulus requiring intervention - Recommend GI consult for Chong's esophagus and for colonoscopy also for eval for chronic abdominal pain (call to make an appointment) - Continue Tylenol 1000 mg every 8 hs for pain and oxy only for severe pain. Can take flexeril three times a day for muscle spasms - Follow up in 3-4 weeks with [facility] for evaluate for abdominal pain - FMLA paperwork will be completed by the DEVELOPMENT SYSTEM EFFICIENCY MANAGER, patient will follow up in a few days Patient was seen and examined with the attending Dr. Ibrahim. Hossein Ames December 09, 2020 2:32 PM Associated attestation - Julio César Ibrahim MD - 12/15/2020 10:47 AM CDT Attending Physician Supervisory Note I personally interviewed and examined the patient and agree with the doctor above. 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
--- OUTSIDE RECORDS SUMMARY | 2024-03-16 15:21 | XMS_ITS | Encounter Summary ---
Author Organization [facility] Address [address] [facility] [place] [address] Care Team Providers Care Data Entry Machine Operator Name Role Phone Helga Brewster APRN-WREATH MACHINE OPERATOR Primary Care Provider Encounter Details Date Type Department Care Team (Latest Contact Info) Description 11/06/2023 Travel Social History Tobacco Use Types Packs/Day [...] on filedocumented in this encounter Care Teams Data Entry Machine Operator Relationship Specialty Start Date End Date Helga Brewster, [facility] [place] [address] [place] [phone] PCP - General Family Medicine 11/06/23 documented as of this encounter
--- OUTSIDE RECORDS SUMMARY | 2024-03-16 15:22 | XMS_ITS | Encounter Summary ---
Author Organization [facility] Address Counts include 234 beds at the [facility] [place] [address] [place] [address] Care Team Providers Care Compressed Gas Plant Worker Name Role Phone Jeimy Kathleen MD Primary Care Provider [phone] Encounter Details Date Type Department Care Team (Late st Contact Info) Description 10/16/2023 7:32 AM CDT - 10/16/2023 11:59 PM CDT Hospital Encounter [facility] [place] [address] Love Bermudez MD [address] [place] [address] [phone] Discharge Disposition: Home or Self Care (Routine Discharge) Social History Tobacco Use Types Packs/Day Years Used Date Smoking Tobacco: Every Day Smokeless Tobacco: Never Alcohol Use Standard Drinks/Week Comments Yes 0 (1 standard drink = 0.6 oz pur e alcohol) Sex and Gender Information Value Date Recorded Sex Assigned at Not on file Legal Sex Male 8:22 PM CDT Gender Identity Not on file Sexual Orientation Not on file documented as of this encounter Medications at Time of Discharge ibuprofen 800 MG tablet Take 800 mg by mouth every 8 (eight) hours as needed for Pain. silver sulfADIAZINE 1 % cream Apply topically daily. Apply topically daily to site of burn 50 g 10/07/2018 documented as of this encounter Plan of Treatment Not on file documented as of this encounter Procedures Procedure Name Priority Date/Time Associated Diagnosis Comments PATHOLOGY Routine 10/16/2023 12:00 AM CDT documented in this encounter Results * Pathology (10/16/2023 12:00 AM CDT) PATHOLOGY [facility] ? Department of Laboratory Medicine ?[address] [facility] ?[place] [address] ? , extension [phone] ? Pathology Report ? Surgical Pathology Report Name: DARNELL MONROE Lazaro ? Specimen #: [id number] Age: 11 1970 (Age: 53) ? Location: [facility] Sex: M ?Procedure Date: 10/16/2023 Hospital #: [id number] ?Date Received: 10/17/2023 Date Reported: 10/18/2023 Provider: LOVE BERMUDEZ MD Source: A: Esophagus, biopsies B: Colon, sigmoid, polyp at 50 C: Colon, sigmoid, polyp at 30 Clinical History: Chong's esophagus and polyps. Gross Description: A. ??Received in formalin, labeled with a patient label and as esophageal biopsy are 2 pieces of delicate white-robertson tissue 0.1 and 0.2 cm. ??The specimen is entirely submitted in cassette A1. B. ??Received in formalin, labeled with a patient label and as sigmoid at 50 are 5 pieces of robertson polypoid tissue ranging from 0.2 to 0.4 cm. ??The specimen is entirely submitted in cassette B1. C. Received in formalin, labeled with a patient label and as polyp at 30 is a 0.5 cm robertson polyp. ??A base is not identified. ??The polyp is bisected. ??The specimen is entirely submitted in cassette C1. Gross examination (when applicable) was performed at [facility], [address] [place] [address]. This case was interpreted and signed out at [facility], [address] [place] [address]. FINAL DIAGNOSIS: A. Esophagus, biopsy: ? -Squamocolumnar junction mucosa with mild patchy chronic inflammation ? -Negative for intestinal metaplasia or dysplasia B. Colon polyp, sigmoid, at 50 cm, polypectomy: ? -Tubular adenoma C. Colon polyp, sigmoid, at 30 cm, polypectomy: ? -Tubulovillous adenoma Electronically Signed Out ? AIDEN CHAVES MD [facility] 10/16/2023 10/17/2023 12: 22 PM CDT Comment:Esophagus, biopsies& Colon, sigmoid, polyp at 50&Colon, sigmoid, polyp at 30 us Love Bermudez MD PATHOLOGY/CYTOLOGY ORDERA BLES Final Result [facility] [address] [place] [address], [id number] documented in this encounter Visit Diagnoses Not on filedocumented in this encounter Care Teams Compressed Gas Plant Worker Relationship Specialty Start Date End Date Jeimy Kathleen MD [address] [place] [address] [place] [address] PCP - General FAMILY PRACTICE 10/07/18 documented as of this encounter
--- OUTSIDE RECORDS SUMMARY | 2024-03-16 15:22 | XMS_ITS | Clinical Summary ---
Author Organization [facility] Address [address] [place] [address]. [place], [place] [id number] [place] [id number] Care Team Providers Care Solderer Production Line Name Role Phone Jeimy Kathleen MD Primary Care Provider [phone] Allergies No known active allergies Medications ibuprofen 800 MG tablet Take 800 mg by mouth every 8 (eight) hours as needed for Pain. Active silver sulfADIAZINE 1 % cream Apply topically daily. Apply topically daily to site of burn 50 g 9 Active Social History Tobacco Use Types Packs/Day Years [...] Sign Reading Time Taken Comments Blood Pressure 134/68 10/07/2018 9:15 PM CDT Pulse 66 10/07/2018 9:15 PM CDT Temperature 37.6 ??C (99.6 ??F) 10/07/2018 7:13 PM CD T Respiratory Rate 18 10/07/2018 9:15 PM CDT Oxygen Saturation 100% 10/07/2018 9:15 PM CDT Inhaled Oxygen Concentration - - Weight 85 kg (187 lb 6.4 oz) 10/07/2018 7:13 PM CDT Height 182.9 cm (6') 10/07/2018 7:13 PM CDT Body Mass Index 25.42 10/07/2018 7:13 PM CDT Plan of Treatment Health Maintenance Due Date Last Done Comments Colorectal Cancer Screening Colonoscopy (10 Years) 1970 Annual Physical 02/03/1975 Pneumococcal Vaccine: Pediat rics (0 to 5 Years) and At-Risk Patients (6 to 64 Years) (1 of 2 - PCV) 02/03/1978 Hepatitis C 02/03/1990 DTaP, Tdap and Td Vaccines ( 1 - Tdap) 02/03/1991 Hepatitis B Vaccines (1 of 3 - 19+ 3-dose series) 02/03/1991 Zoster Vaccines (1 of 2) 02/03/2022 COVID-19 Vaccine (1 - 2023-2 5 season) 2023 Influenza Adult (#1) 2023 Meningococcal Vaccine Aged Out No jurgen parker eligible based on patient's age to complete this topic RSV Immunizations Under 20 Months Aged Out No longer eligible based on patient's age to complete this topic Insurance [facility] Care Teams Solderer Production Line Relationship Specialty Start Date End Date Jeimy Kathleen MD [address] [place] [address] MARÍA SMITH [phone] PCP - General FAMILY PRACTICE 10/07/18
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
--- OUTSIDE RECORDS SUMMARY | 2024-03-16 15:22 | XMS_ITS | Encounter Summary ---
Author Organization [facility] Address [facility]. [place], [place] [address] [place] [address] Care Team Providers Care Dolly Operator Name Role Phone Unavailable Primary Care Provider Unavailabl e Encounter Details Date Type Department Care Team (Late st Contact Info) Description 03/25/[address] [address] [place] [address] , Elizabeth Schaeffer MD Social History Tobacco Use Types Packs/Day Years Used Date Smoking Tobacco: Never Assessed Sex and Gender Information Value Date Recorded Sex Assigned at Not on file Legal Sex Male 8:22 PM CDT Gender Identity Not on file Sexual Orientation Not on file documented as of this encounter Plan of Treatment Not on file documented as of this encounter Visit Diagnoses Not on filedocumented in this encounter
--- OUTSIDE RECORDS SUMMARY | 2024-03-16 15:22 | XMS_ITS | Encounter Summary ---
Author Organization [facility] Address [facility]. [place], [place] [address] [place] [address] Care Team Providers Care Food Processing Scientist Name Role Phone Unavailable Primary Care Provider Unavailabl e Encounter Details Date Type Department Care Team (Late st Contact Info) Description 10/27/[address] [facility] [address] [place] [address] Clay Nunez MD Social History Tobacco Use Types Packs/Day [...]
--- OUTSIDE RECORDS SUMMARY | 2024-03-16 15:22 | XMS_ITS | Encounter Summary ---
Author Organization [facility] Address [facility]. [place], [place] [id number] [place] [address] Care Team Providers Care Service Line Coordinator Name Role Phone Unavailable Primary Care Provider Unavailabl e Encounter Details Date Type Department Care Team (Late st Contact Info) Description 04/16/[address] [facility] [address] [place] [address] , Elizabeth Schaeffer MD Social History Tobacco [...]
--- OUTSIDE RECORDS SUMMARY | 2024-03-16 15:22 | XMS_ITS | Encounter Summary ---
Author Organization [facility] Address Counts include 234 beds at the [facility] [place] [address] [place] [address] Care Team Providers Care Vacuum Worker Name Role Phone Unavailable Primary Care Provider Unavailabl e Encounter Details Date Type Department Care Team (Late st Contact Info) Description 05/16/[address] [address] [facility] [place] [address] [place] [address] [place] [address] Social History Tobacco Use Types Packs/Day Years [...]
--- OUTSIDE RECORDS SUMMARY | 2024-03-16 15:22 | XMS_ITS | Encounter Summary ---
Author Organization [facility] Address [facility]. [place], [place] [address] [place] [address] Care Team Providers Care Sheriff Officer Name Role Phone Unavailable Primary Care Provider Unavailabl e Encounter Details Date Type Department Care Team (Late st Contact Info) Description 08/02/2007 Abstract [facility] [employer] [facility] [address] [place] [address] , Elizabeth Schaeffer MD Social History Tobacco [...]
--- OUTSIDE RECORDS SUMMARY | 2024-03-16 15:22 | XMS_ITS | Encounter Summary ---
Author Organization [facility] Address [facility] [place] [address] [place] [address] Care Team Providers Care Composition Roll Maker And Cutter Name Role Phone Unavailable Primary Care Provider Unavailabl e Encounter Details Date Type Department Care Team (Late st Contact Info) Description 05/21/2008 Abstract [facility] [address] [place] [address] Samantha Vences MD [address] [facility] [address] [place] [address] Social History Tobacco Use Types Packs/Day Years [...]
--- OUTSIDE RECORDS SUMMARY | 2024-03-16 15:23 | XMS_ITS | Data Portability ---
Author Organization [place] [employer], Main Office Address [address] [place] [address] Assessment No assessment recorded. Plan of Treatment Reminders Order Date Submit Date Provider Last Modified By Organization Details Last Modified Time Details Appointments New Patient 2024 11:15A Beth zacarias MD Not available Not available Not available Follow Up 2024 09:00A Beth Brewster NP Not available Not available Not available Lab drug of abuse panel, urine [address] [facility] (Lab), [address] [place], [address], 10/03/2023 03:39:18 lipid panel, serum 2023 [email or web address] [place] [address] (Lab), [address] [place], [address], 10/17/2023 08:13:17 CBC w/ auto diff [address] [place] [address] (Lab), [address] [place], [address], 10/17/2023 08:13:17 CMP, serum or plasma 2023 [email or web address] [place] [address] (Lab), [address] [place], [address], 10/17/2023 08:13:17 TSH, serum or plasma 2023 024 77 [facility] (Lab), [address] [place], [address], 10/17/2023 08:13:17 Referral neurologi andrew surgeon referral - Please call patient to schedule an appointme nt. Thank you. 2023 [email or web address] [facility], [address] [facility], [place], [address], 11/09/2023 08:45:39 pain managemen t referral - Please call patient to schedule an appointme nt. Thank you. 2023 [email or web address] Caitlin Cooper [facility], [address] [place] [address], [address], 02/05/2024 08:48:22 physical therapist referral 2023 [facility], [address], [place], [address], 01/05/2024 12:39:49 Procedures upper endoscopy procedure (EGD) (PROC) 2023 [facility] (Pre-Screen), [address] [place], [address], 10/16/2023 13:56:59 colonosco py procedure (PROC) 2023 024 [facility] (Pre-Screen), [address] [place], [address], 10/16/2023 13:57:22 Surgeries None recorded. Imaging US, extremity , nonvascul ar, limited - Mass on Left Forearm *Please call pt to schedule* 2023 024 56 [facility] (One Call Scheduling), [address] [place], [address], 02/01/2024 08:58:28 MRI, cervical spine, w/o contrast - Please call pt to schedule 2023 [facility], [facility], [place], [address], 03/09/2024 14:26:43 Medication Orders alfuzosin ER 10 mg tablet,ex tended release 24 hr 2023 [facility] #17388, [address] [place], [place], [id number], 09/29/2023 18:27:49 Golytely 236 gram-22.7 4 gram-6.74 gram-5.86 gram oral solution 2023 [email or web address] [facility]02512, [address] [place], [place], [id number], 02/09/2024 09:27:11 hydrocodo ne 5 mg-acetam inophen 325 mg tablet 2023 [facility] [place] [facility] #32518, [address] [place], [place], [id number], 10/02/2023 11:27:44 hydrocodo ne 5 mg-acetam inophen 325 mg tablet 2023 [facility] [place] [facility] #29172, [address] [place], [place], [id number], 01/02/2024 11:31:48 cyclobenz aprine 5 mg tablet 2023 [facility] [place] [facility] #73872, [address] [place], [place], [id number], 01/02/2024 11:31:40 alfuzosin ER 10 mg tablet,ex tended release 24 hr 2023 [facility] [place] [facility] #09778, [address] [place], [place], [id number], 01/02/2024 11:31:39 buspirone 5 mg tablet 2023 [facility] #88538, [address] [place], [place], [id number], 02/09/2024 09:16:52 penicilli n V potassium 500 mg tablet 2023 024 [facility] #23613, [address] [place], [place], [id number], 02/09/2024 09:33:38 methocarb darrel 750 mg tablet 2023 [facility] #74439, [address] [place], [place], [id number], 02/09/2024 09:33:38 sertralin e 50 mg tablet 2023 [facility] #24860, [address] [place], [place], [id number], 02/09/2024 09:33:40 Patient TargetsNo targets recorded. Patient Instructions Encounter Date Encounter Id Patient Instructions Last Modified By Organization Details Last Modified Time 09/29/2023 [id number] impression 1. BPH with obstruction Plan 1. I recommend alfuzosin 10 mg dispensed 90 with 3 refills and follow up as needed 2. If they do not do 90 then if he calls back we will do 30 tablets with 11 refills [email or web address] Not available 09/29/2023 18:27:20 10/02/2023 [id number] DEX [email or web address] Not available 14:52:30 . PT WITH BE/ GE RD . RECOMMEND AN EGD . NEED TO R/O DYSPLASIA. PT NEEDS A SCREENING COLON . R/O POLYP . RECOMMEND A COLONOSOPY . Risks benefits and complications were explained to the pt. ( BLEEDING PERFORATION , INFECTION , ). PT VERBALIZES UNDERSTANDING AND IS WILLING TO PROCEDE . [email or web address] Not available 10/02/2023 14:52:58 Reason for Referral Neurological Surgeon Referra l for Degeneration of cervical intervertebral disc Please call patient to schedule an appointment. Thank you. Referring Physician: Helga Brewster [facility], Encounter Date: 10/02/2023 Pain Management Referral for Degeneration of cervical intervertebral disc Please call patient to schedule an appointment. Thank you. Referring Physician: Helga Brewster [facility], Encounter Date: 01/02/2024 Physical Therapist Referral for Degeneration of cervical intervertebral disc Referring Physician: Helga Brewster [facility], Encounter Date: 01/02/2024 Results Created Date Observation Date Name Description Value Unit Range Abnormal Flag Note LastModifiedBy Organization Detail LastModifiedTime 09/29/1909/29/2023 urina lysis , dipst ick Color Yellow Not Available [address], [address], 09/29/2023 09:16:29 09/29/19 24 09/29/2023 urina lysis , dipst ick Appearance Clear Not Available [address], [address], 09/29/2023 09:16:29 09/29/19 24 09/29/2023 urina lysis , dipst ick Glucose (reference range: negative mg/dl) Negati ve Not Available [address], [address], 09/29/2023 09:16:29 09/29/19 24 09/29/2023 urina lysis , dipst ick Bilirubin (reference range: negative mg/dl) Negati ve Not Available [address], [address], [address], 09/29/2023 09:16:29 09/29/19 24 09/29/2023 urina lysis , dipst ick Ketone (reference range: negative mg/dl) Negati ve Not Available [address], [address], 09/29/2023 09:16:29 09/29/1909/29/2023 urina lysis , dipst ick Specific [place] (reference range: 1.005-1.030) 1.005 Not Available [address], [address], 09/29/2023 09:16:29 09/29/1909/29/2023 urina lysis , dipst ick Blood (reference range: negative Raymundo/? ? ?l) Negati ve Not Available [address], [address], 09/29/2023 09:16:29 09/29/1909/29/2023 urina lysis , dipst ick pH (reference range: 5-7) 5.5 Not Available [address], [address], 09/29/2023 09:16:29 09/29/1909/29/2023 urina lysis , dipst ick Protein (reference range: negative mg/dl) Negati ve Not Available [address], [address], 09/29/2023 09:16:29 09/29/1909/29/2023 urina lysis , dipst ick Urobilinogen (reference range: 0.2-1 mg/dl) 0.2 Not Available [address] [place], [address], 09/29/2023 09:16:29 09/29/19 24 09/29/2023 urina lysis , dipst ick Nitrite (reference rage: negative mg/dl) negati ve Not Available [facility], [place] [address], [place], [address], 09/29/2023 09:16:29 09/29/19 24 09/29/2023 urina lysis , dipst ick Leukocytes (reference range: negative marlen/? ? ?l) Negati ve Not Available [address], [place] [address], [place], [address], 09/29/2023 09:16:29 09/29/19 24 09/29/2023 US, bladd er No observ ation record ed. [email or web address] [address], [place] [address], [place], [address], 09/29/2023 18:53:46 02/12/20 24 02/08/2024 elect romyo gram + nerve condu ction study No observ ation record ed. [email or web address] Not Available 14:38:55 03/09/20 24 03/09/2024 US, extre ben lewis r, limit ed No observ ation record ed. [email or web address] [address], [place], [address], 03/11/2024 10:02:55 03/09/20 24 03/09/2024 US, extre ben lewis limit ed No observ ation record ed. [email or web address] [address], [place], [address], 03/11/2024 10:02:56 03/09/20 24 03/09/2024 MRI, cervi andrew spine , w/o contr ast No observ ation record ed. [email or web address] [facility] [address], [place], [address], 03/11/2024 10:02:57 03/09/2003/09/2024 MRI, cervi andrew spine , w/o contr ast No observ ation record ed. [email or web address] [facility] [address], [place], [address], 03/11/2024 10:02:57 Result Notes None recorded. Problems Name Problem SNOMED Code Status Onset Date Resolution Date Notes Provider Name and Address Organization Details Recorded Time Tobacco user 004237200 Active Not Available [facility] 3 08:46:04 Gastroesop hageal reflux disease 698685952 Active Not Available [facility] 3 08:46:04 Gastropare sis syndrome 667929620 Active Not Available [facility] 3 08:46:04 Chong's esophagus 958672943 Active EGD 10/2015 EGD 1 Not Available [facility] 3 08:46:04 Bronchitis 11474245 Active Not Available [facility] 3 08:46:04 Hyperlipid emia 45923184 Active Not Available [facility] 3 08:46:04 Polyp of colon 18950819 Active last [email or web address] Not Available [facility] 3 08:46:05 Unintentio nal weight loss 389954908 Active 2022 MD Ricky Singleton, [address], [place], [address] , [employer] [facility] [employer] 3 12:43:49 Multiple joint pain 02727244 Active 2022 MD Ricky Singleton, [address], [place], [address] , [employer] [facility] [employer] [facility] 3 12:44:39 Pain of left shoulder joint 364987064694 74058 Active 2022 MD Ricky Singleton [address], [place], [address] , [place] [facility] 3 12:48:09 Degenerati on of cervical interverte bral disc 15856469 Active 2022 Jeimy Kathleen MD [address], [address], [place], [address] , [place] [facility] 3 12:48:41 Pain of bilateral hands 149266313211 38078 Active 2022 Jeimy Kathleen MD [address], [address], [place], [address] , [place] [facility] 3 12:49:08 Prediabete s 689422842 Active 2022 Jeimy Kathleen MD [address], [address], [place], [address] , [place] [facility] 3 09:05:05 Cervical spondylosi s 711828185 Active 2022 Jeimy Kathleen MD [address], [address], [place], [address] , [place] [facility] 3 17:19:41 Large prostate 380824273 Active 2022 Jeimy Kathleen MD [address], [address], [place], [address] , [place] [facility] 3 14:51:39 Solitary nodule of lung 349295890 Active 2022 Jeimy Kathleen MD [address], [address], [place], [address] , [place] [facility] 3 14:51:55 Spinal stenosis in cervical region 48746700 Active 2023 MARGO Euceda [address], [address], [place], [address] , [place] [facility] 4 12:30:25 Hematochez ia 183022259 Active 2023 MARGO Euceda [address], [address], [place], [address] , [facility] 4 12:32:19 Skin lesion 23843517 Active 2023 MARGO Euceda [address], [address], [place], [address] , [facility] 4 12:33:14 Acute urinary tract infection 146512786 Active 2023 Elisabet Mayo CMA [facility], [facility] 4 09:16:41 Benign prostatic hyperplasi a with outflow obstructio n 393950679 Active 2023 Jf Moore MD [address], [address], [place], [address] , [facility] 4 18:26:02 Dental abscess 373262085 Active 2023 MARGO Manuel [address], [address], [place], [address] , [facility] 4 12:28:56 Mixed anxiety and depressive disorder 329818864 Active 2023 MARGO Manuel [address], [address], [place], [address] , [facility] 4 11:17:10 Mass of upper limb 218602205 Active 2023 MARGO Manuel [address], [address], [place], [address] , [facility] 4 11:25:21 Upper respirator y infection 00311691 Active 2023 MARGO Mnauel [address], [address], [place], [address] , [facility] 4 11:08:34 Problem Notes None recorded. Procedures Surgical History Date Name Laterality Status Provider Name and Address Organization Details Recorded Time 10/04 /2023 Ortho - Cortisone Injection completed Moshe d Fraser, MD [address] [facility], [address], [place], [address] , [place] [facility] 3 23:53:13 04/24 esophagogastroduodenoscopy completed Not Available [facility] 3 08:43:31 08/07 esophagoscopy for biopsy completed Not Available [facility] 3 08:43:31 06/09 endoscopy of esophagus completed Not Available [facility] 3 08:43:31 11/17 Endoscopy completed Not Available [facility] 3 08:43:31 10/20 Colonoscopy completed Not Available [facility] 3 08:43:31 Gastrointestinal Surgery completed Not Available [facility] 3 08:43:31 Imaging Results Imaging Date Name Status LastModified by Organization Details LastModified Time 09/29/2023 US, bladder completed [email or web address] [facility] [place] [address] [facility], [address], [place], [address], 09/29/2023 18:53:46 02/08/2024 electromyogram + nerve conduction study completed [email or web address] Information not available 02/12/2024 14:38:55 03/09/2024 US, extremity, nonvascular, limited completed [address], [address], 03/11/2024 10:02:55 03/09/2024 US, extremity, nonvascular, limited completed [address], [address], 03/11/2024 10:02:56 03/09/2024 MRI, cervical spine, w/o contrast completed [address], [address], 03/11/2024 10:02:57 03/09/2024 MRI, cervical spine, w/o contrast completed [address], [place], [address], 03/11/2024 10:02:57 Procedure Notes None recorded. Medical Equipment None Reported. Allergies No known drug allergies Medications Name Sig Start Date Stop Date Status Note LastModified by Organization Details LastModified Time cyclobenzap rine 10 mg tablet TAKE 1 TABLET BY MOUTH THREE TIMES DAILY NEEDED FOR MUSCLE SPASMS OR PAIN 03/20 completed Not Available Not Available Not Available buspirone 5 mg tablet active Not Available Not Available No t Available prednisone 10 mg tablet 02/08 completed Not Available Not Available Not Available azithromyci n 250 mg tablet TAKE 2 TABLETS (500 MG) BY ORAL ROUTE ONCE DAILY FOR 1 DAY THEN 1 TABLET (250 MG) BY ORAL ROUTE ONCE DAILY FOR 4 DAYS active Not Available Not Available No t Available hydrocodone 5 mg-acetamin ophen 325 mg tablet Take 1 tablet twice a day by oral route. 2023 active Not Available Not Available Not Avai lable meloxicam 15 mg tablet Take 1 tablet every day by oral route as needed. 01/01 completed Not Available Not Available Not Available Medrol (Benji) 4 mg tablets in a dose pack take as directed by oral route 03/20 completed Not Available Not Available Not Available prednisone 20 mg tablet Take 2 tablets every day by oral route for 5 days. 03/20 completed Not Available Not Available Not Available penicillin V potassium 500 mg tablet Take 1 tablet every 6 hours by oral route for 10 days. active Not Available Not Available No t Available sulfamethox azole 800 mg-trimetho prim 160 mg tablet TK 1 T PO Q 12 H FOR 7 DAYS 03/20 completed Not Available Not Available Not Available peg-electro lyte solution 420 gram oral solution TAKE DIRECTED BY OFFICE 02/08 completed Not Available Not Available Not Available acetaminoph en 500 mg tablet TAKE 2 CAPSULE BY MOUTH EVERY 8 HOURS NEEDED FOR PAIN MAX ALLOWED IS 4 TIMES A DAY 03/20 completed Not Available Not Available Not Available Nexium 20 mg capsule,del ayed release Take 1 capsule every day by oral route. 03/20 completed Not Available Not Available Not Available oxycodone-a cetaminophe n 5 mg-325 mg tablet Take 1 tablet every 6 hours by oral route for 3 days. 03/20 completed Not Available Not Available Not Available hydrocodone 10 mg-acetamin ophen 500 mg tablet active Not Available Not Available No t Available methocarbam ol 750 mg tablet Take 1 tablet twice a day by oral route. active Not Available Not Available No t Available Kenalog 10 mg/mL suspension for injection Take 1 mL by injection route. 01/12 completed [facility]: 0003- 0494- 20 Not Available Not Available Not Available pantoprazol e 40 mg tablet,deondre yed release TAKE 1 TABLET BY MOUTH EVERY DAY 03/20 completed Not Available Not Available Not Available triamcinolo ne acetonide 0.1 % topical ointment Apply 1 applicati on twice a day by topical route as needed for 7 days. 03/20 completed Not Available Not Available Not Available hydrocodone 7.5 mg-acetamin ophen 750 mg tablet active Not Available Not Available No t Available lidocaine 5 % topical patch APPLY 1 PATCH TOPICALLY TO THE SKIN EVERY DAY 03/20 completed Not Available Not Available Not Available promethazin e 25 mg tablet 01/01 completed Not Available Not Available Not Available gabapentin 300 mg capsule 1 po qhs 03/08 completed Not Available Not Available Not Available gabapentin 100 mg capsule 03/20 completed Not Available Not Available Not Available levofloxaci n 500 mg tablet Take 1 tablet every 24 hours by oral route for 5 days. 03/20 completed Not Available Not Available Not Available SSD 1 % topical cream APPLY A 1/16 INCH THICK LAYER TO THE ENTIRE BURN AREA BY TOPICAL ROUTE BID 03/20 completed Not Available Not Available Not Available sertraline 50 mg tablet Take 1 tablet every day by oral route at bedtime. active Not Available Not Available No t Available oxycodone 5 mg tablet TAKE 1 TABLET BY MOUTH EVERY 6 HOURS NEEDED IF TYLENOL AND FLEXERIL NOT HELPING. 03/20 completed Not Available Not Available Not Available cyclobenzap rine 5 mg tablet TAKE 1 TABLET BY MOUTH THREE TIMES DAILY active Not Available Not Available No t Available alfuzosin ER 10 mg tablet,exte nded release 24 hr TAKE 1 TABLET BY MOUTH EVERY DAY active Not Available Not Available No t Available ProAir HFA 90 mcg/actuati on aerosol inhaler Inhale 2 puffs every 4 hours by inhalatio n route. 03/20 completed Not Available Not Available Not Available Fish Oil 1,000 mg capsule 1 po bid 03/20 completed Not Available Not Available Not Available GaviLyte-G 236 gram-22.74 gram-6.74 gram-5.86 gram oral solution MIX AND DRINK DIRECTED 02/08 completed Not Available Not Available Not Available Suprep Bowel Prep Kit 17.5 gram-3.13 gram-1.6 gram oral solution 03/20 completed Not Available Not Available Not Available ropivacaine (PF) 5 mg/mL (0.5 %) injection solution Take 4 mL by injection route. 01/12 completed [facility] [phone] Not Available Not Available Not Available Banophen 50 mg capsule TK 1 C PO Q 4 H PRN 03/20 completed Not Available Not Available Not Available Vitals Date Recorded Body height Heart rate Body temperature Body mass index (BMI) Body weight Oxygen saturation Oxygen saturation in Arterial blood by Pulse oximetry Systolic blood pressure Diastolic blood pressure Provider Name and Address Organization Details Last Updated DateTime 4 182.88 cm 97 /min 98.02 [degF] 23.9 kg/m2 29370.2 6 g 99 % 99 % 113 mm[Hg] 84 mm[Hg] Elisabet Mayo CMA [facility] 4 15:54:45 Date Recorded Body height Body mass index (BMI) Body weight Body temperature Heart rate Oxygen saturation Oxygen saturation in Arterial blood by Pulse oximetry Systolic blood pressure Diastolic blood pressure Provider Name and Address Organization Details Last Updated DateTime 4 182.88 cm 24.1 kg/m2 24375.4 4 g 97.3 [degF] 75 /min 98 % 98 % 150 mm[Hg] 80 mm[Hg] Andria Aguilar RN [facility] 4 10:56:35 Date Recorded Body height Body mass index (BMI) Body weight Heart rate Oxygen saturation Oxygen saturation in Arterial blood by Pulse oximetry Systolic blood pressure Diastolic blood pressure Provider Name and Address Organization Details Last Updated DateTime 4 182.88 cm 24.1 kg/m2 85528.4 4 g 84 /min 98 % 98 % 136 mm[Hg] 82 mm[Hg] AMARILIS Sandoval [place] [employer] [facility] 4 14:11:21 Date Recorded Body height Body mass index (BMI) Body weight Body temperature Heart rate Oxygen saturation Oxygen saturation in Arterial blood by Pulse oximetry Systolic blood pressure Diastolic blood pressure Provider Name and Address Organization Details Last Updated DateTime 4 182.88 cm 24.5 kg/m2 91431.2 2 g 98.1 [degF] 79 /min 99 % 99 % 158 mm[Hg] 90 mm[Hg] Andria Aguilar RN [facility] 4 11:02:12 Date Recorded Body height Body weight Body temperature Heart rate Oxygen saturation Oxygen saturation in Arterial blood by Pulse oximetry Systolic blood pressure Diastolic blood pressure Provider Name and Address Organization Details Last Updated DateTime 4 182.88 cm 64382.8 1 g 96.8 [degF] 92 /min 98 % 98 % 152 mm[Hg] 90 mm[Hg] Minnie Valdez RN [facility] 4 09:09:02 Social History Question Answer Notes LastModified by Organizat ion Details LastModified Time Tobacco Smoking Status Current Every Day Smoker Not Available [facility] 05/18/2022 08:43:28 What Is Your Level Of Alcohol Consumption? None [id number] Information not available 05/18/2022 What Is Your Level Of Caffeine Consumption? Moderate [id number] Information not available 05/18/2022 How Much Tobacco Do You Chew? None [id number] Information not available 05/18/2022 In The 14 Days Before Symptom Onset, Have You Had Close Contact With A Laboratory-confir med COVID-19 While That Case Was Ill? No [id number] Information not available 05/18/2022 In The 14 Days Before Symptom Onset, Have You Had Close Contact With A Person Who Is Under Investigation For COVID-19 While That Person Was Ill? No [id number] Information not available 05/18/2022 What Type Of Diet Are You Following? REGULAR [id number] Information not available 05/18/2022 Which Illicit Or Recreational Drugs Have You Used? None [id number] Information not available 05/18/2022 Do You Or Have You Ever Used E-cigarettes Or Vape? 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 08/30/2022 Information not available 08/30/2022 At What Age Did You Start Smoking Tobacco? 15 [id number] Information not available 05/18/2022 Do You Or Have You Ever Used Smokeless Tobacco? Never Used Smokeless Tobacco [id number] Information not available 05/18/2022 How Much Tobacco Do You Smoke? 1 PPD Information not available 08/30/2022 How Many Years Have You Smoked Tobacco? 30 [id number] Information not available 05/18/2022 Sex: Unknown Functional Status Question Answer Note LastModified by Organizat ion Details LastModified Time What is your exercise level? Heavy [id number] Information not available 05/18/2022 Mental Status None recorded. Family History Relationship Description Onset Age of this Age Resolved Age Notes LastModified by Organization Details LastModified Time Mother Hypertensive disorder MIGRATION.766 [id number] Not available 05/18/2022 08:43:33 Paternal Grandfather Cerebrovascu lar accident MIGRATION.988 [id number] Not available 05/18/2022 08:43:33 Paternal Uncle Malignant tumor of lung MIGRATION.477 [id number] Not available 05/18/2022 08:43:33 Paternal Grandmother Malignant tumor of colon MIGRATION.184 [id number] Not available 05/18/2022 08:43:33 Maternal Uncle Glaucoma MIGRATION.677 [id number] Not available 05/18/2022 08:43:33 Medical History Condition Response ARTHRITIS Y BOWEL PROBLEMS Y HEARTBURN / REFLUX Y Past Encounters Encounter ID Performer Location Encounter Start Date Encounter Closed Date Diagnosis/Indication Diagnosis SNOMED-CT Code Diagnosis ICD10 Code [id number] [facility] D[facility] levine [address] [facility] [address] [place] [address] 08/19/2020 00:00:00 08/19/2020 13:52:58 [id number] [facility] Primary Care Dc lle [address] [facility] [address] [place] [address] 08/25/2020 00:00:00 08/25/2020 19:53:26 [id number] [facility] Primary Care Dc balbuenae [address] [facility] [address] [place] [address] 12/07/2020 00:00:00 12/07/2020 10:15:28 [id number] Jeimy Kathleen MD [facility] Primary Care Dc balbuenae [address] [place] [address] [address] [place] [address] 08/30/2022 12:25:54 08/30/2022 13:37:12 Unintentional weight loss 052367347 R63.4 Multiple joint pain 3567 8005 M25.50 R53.83 Screening for malignant neoplasm of prostate 245679352 Z12.5 Hyperlipid emia screening 879912720 Z13.220 Chong's esophagus 3029 02179 K22.70 Pain of le ft shoulder joint 1935027083 2967961 M25.512 Pain of bi lateral hands 4953008990 6478994 M79.642 Degenerati on of cervical intervertebral disc 71279179 M50.30 [id number] Jeimy Kathleen MD [facility] Primary Care Dc [address] [place] [address] 09/28/2022 17:37:33 09/28/2022 17:52:59 [id number] Dirk Fraser MD [facility] [place] [address] [place] [address] 12/21/2022 15:49:15 12/21/2022 16:29:26 Pain of left shoulder joint 3368226887 9616507 M25.893 [id number] Jeimy Kathleen MD [facility] Primary Care Dc [address] [place] [address] 01/12/2023 17:07:02 01/12/2023 17:32:12 Cervical spondylosis 505070119 M47.243 [id number] Jeimy Kathleen MD [facility] Primary [place] [address] [facility] [address] [place] [address] 03/08/2023 16:28:07 03/08/2023 16:59:44 Degeneration of cervical intervertebral disc 66492505 M50.30 [id number] [facility] Primary Care [facility] [address] [facility] [address] [place] [address] 09/15/2023 12:14:30 09/15/2023 12:45:30 Referral needed [id number] Z76.89 Hematochezia 151590739 K 92.1 Skin lesion 25986962 L98 .9 [id number] Love Bermudez MD [facility] General Surgery [address] [facility], [address] [place] [address] 10/02/2023 14:08:02 10/02/2023 14:29:35 Chong's esophagus 928816625 K22.70 Hematochezia 382460386 K 92.1 [id number] Jf Moore MD [facility] Urology [address], [address] [place] [address] 09/29/2023 15:45:39 09/29/2023 16:31:33 Benign prostatic hyperplasia with outflow obstruction 448868516 N40.1 [id number] MARGO Manuel [facility] Primary Care [address] [place] [address] 10/02/2023 10:52:41 10/02/2023 11:42:07 Drug of abuse screen 69473427 Z02.83 Adult heal th examination 622458005 Z00.00 Z00.01 Degenerati on of cervical intervertebral disc 19613221 M50.30 Hematochezia 525722058 K 92.1 [id number] MARGO Manuel [facility] Primary Care [facility] [address] [facility] [address] [place] [address] 01/02/2024 10:56:52 01/02/2024 11:44:27 Degeneration of cervical intervertebral disc 51209267 M50.30 Mixed anxi ety and depressive disorder 278578813 F41.8 Benign pro static hyperplasia with outflow obstruction 996521903 N40.1 Mass of upper limb 84874 5008 R22.30 [id number] MARGO Manuel [facility] Primary Care Dc levine [address] [facility] [address] [place] [address] 02/09/2024 08:59:55 02/09/2024 09:39:25 Dental abscess 341068443 K04.7 Mixed anxi ety and depressive disorder 505318303 F41.8 Spinal markos nosis in cervical region 44878818 M48.02 Health Concerns Section Related Observation LastModified by Organization Detai ls LastModified Time None Recorded Concern Status LastModified by Organization Details LastModified Time None Recorded Advance Directives Directive None Recorded Payers Encounter Date Sequence Insurance Name Policy Number Policy Ernst Covered Member ID Ernst Member ID Guarantor Name 09/29/2023 1 [place] [facility] Dinesh Dover [id number] Dinesh Dover 10/02/2023 1 [place] [facility] Dinesh Dover [id number] Dinesh Dover 10/02/2023 1 [place] [facility] Dinesh Dover [id number] Dinesh Dover 01/02/2024 1 [place] [facility] Dinesh Dover [id number] Dinesh Dover 02/09/2024 1 [facility] - DOS ON OR AFTER 20 (MEDICAID REPLACEMENT - HMO) Dinesh Dover [id number] Dinesh Dover Notes Date Note Type Note Provider Name and Address Organization Details Recorded Time 09/29/2023 text/html this patient com es in because they were just do an MRI of the abdomen and pelvis and spine and they just happened to notice that he had an enlarged prostate. His PSA is 1.5. He does have BPH symptoms. He gets up 2 or 3 times at night. He has some frequency of urination and his stream is slower. He takes this beta prostate medication [id number] but it does not seem to be helping He has not taking any prostate medications There are no specific aggravating or relieving factors He drinks mainly coffee and water he drinks no sodas and no alcohol He does smoke 1/2-1 pack of cigarettes per day He denies any fevers or chills no nausea vomiting there is no blood in the urine The duration is problem has been maybe over a year or 2 Jf Moore MD [address], [facility] [address], [place], [address], [facility] [employer] [facility] 09/29/2023 18:27:46 10/02/2023 text/html PEPPER WAS SEE N NNI THE OFFICE TODAY FOR EVALUATION . PT HAS A HX/O OF GERD /BE . PT IS S/P RFA. HE DENIES PYROSIS . DENIES ABD PAIN /WT LOSS /BLEEDINGPT WAS SEEN IN THE OFFICE TODAY FOR COLON SCREENING . PT C/O HEMATOCHEZIA . PT HAS A HX/O GASTROCHESIS / GUT MALROTATION . PT REPORTS POLYPS , AND STATES THAT HE HAS A COLONOSCOPY EVERY 3 YRS . HE C/O MODERATED RECTAL BLEEDING / DENIES WT LOSS. Love Bermudez MD [address], [facility] [address], [place], [address], [facility] [employer] [facility] 10/02/2023 14:53:58 10/02/2023 text/html Patient is a 54 year old male that presents to the office for annual wellness. Patient reports he saw Dr. Moore on Monday for enlarged prostate and will continue to follow up with him as scheduled. Patient reports he was started on a new medication, unsure of the name. Patient reports he is scheduled to see Dr. Bermudez today to follow up on blood in stool and for routine EGD and Colonoscopy. Patient reports he is still have blood in stools however it has not worsened since his last appointment. Patient denies abdominal pain, nausea and vomiting. Patient requesting a new referral to neurosurgery for his degenerative cervical discs. Patient reports the previous referral was not covered by his insurance. Patient reports he has been doing his home exercises that were given to him by PT. He also bought a new cervical pillow however it has become hard for him to get comfortable at night to sleep. Patient has refused pain medications in the past as he was treating with THC oil however that has become too expensive for him so he stopped. Patient denies chest pain and shortness of breath. labs---will orderFlu-declinesCo lwp-nfaresgnXyew-RA D, less than 4 years agoPSA-follows urologyColonoscopy- sees GIUDS-ordered MARGO Manuel [address], [facility] [address], [place], [address], [facility] 10/02/2023 11:48:11 01/02/2024 text/html Patient is a 53 year old male that presents to the office ambulatory with cane. Patient reports over the last month he has started to use the cane. He uses it to aid in transitioning from a sitting to standing or standing to sitting position rather than for walking/balance issues. Patient followed up with neurologist at [facility] however it did not go well. Patient felt very rushed and was not able to explain his concerns due to doctor being in a [place]. Verbalizes that neurologist does not believe patient should undergo surgery at this time, he should continue treating pain and consider surgery a last resort . Patient reports continuing trying to adjust to living life with pain. Patient reports his quality of life continues to decrease and he is worried. Patient is concerned for his mental state-denies SI/HI and has a great support system between his children and his friends but thinks he needs medication. Patient reports when he is home alone he is a constant state of worry due to financial and health stress. Patient is still waiting for his disability to be approved by the [facility]. Patient denies any previous treatment for anxiety and depression.Patient requesting new referral for physical therapy and pain management since the previous one did not accept his insurance. Patient reports numbness and tingling in left upper extremity has worsened, he is scheduled for a nerve conduction test on 01/10/24. Patient reports mass of left forearm that has been present for the last couple of months. It is not painful and has not gotten bigger but he would like to have it taken care of. MARGO Manuel [address], [facility] [address], [place], [address], [facility] 01/02/2024 23:27:57 02/09/2024 text/html Patient is a 54 year old male that presents to the office for follow up. Patient reports he stopped taking the Buspirone due to severe headaches. Patient would like to try a different medication as there has been no change in his anxiety and depression. Patient reports he was going to physical therapy twice per week for his neck pain. It helps short term but overall he feels like neck pain is getting worse. Patient reports he has been much stiffer over the last couple of weeks and it is harder and harder to get out of bed and moving in the morning. Patient is still working to get into pain management, had a call on Monday about seeing a pain management doctor in [place] but has not set up an appointment yet. Patient had nerve conduction test completed yesterday, there were no conclusions made from the study other than it may or may not be a pinched nerve causing his hand to spasm but there was no definite triggered position. Patient reports right upper dental abscess that started last week. Patient went to the [facility] a couple weeks ago for previous abscess and had a couple teeth pulled. Patient is scheduled for his next appointment 03/07/24, he is only able to go once per month for an emergency visit. Helga Brewster, SHIPPING AND RECEIVING ASSISTANT-C [address] [facility], [place] [address], [place], [address], [place] [facility] 02/09/2024 21:30:57
--- OUTSIDE RECORDS SUMMARY | 2024-03-16 15:23 | XMS_ITS | Continuity of Care Document ---
Author Organization [place] - [facility], [facility] Address [address] [place] [address] Assessment No assessment recorded. Plan of Treatment Reminders Order Date Submit Date Provider Last Modified By Organization Details Last Modified Time Details Appointments New Patient 15 2024 11:15A Beth zacarias MD Not available Not available Not available Follow Up 30 2024 09:00A Beth Brewster NP Not available Not available Not available Lab None recorded. Referral None recorded. Procedures None recorded. Surgeries None recorded. Imaging MRI, cervical spine, w/o contrast - Please call pt to schedule [address], [place], [address], 03/09/2024 14:26:43 Medication Orders penicilli n V potassium 500 mg tablet 2023 024 [id number], [address] [place], [place], [id number], 02/09/2024 09:33:38 methocarb darrel 750 mg tablet 2023 024 [facility] #[id number], [address] [place], [place], [id number], 02/09/2024 09:33:38 sertralin e 50 mg tablet 2023 024 [facility] #06246, [address] [facility] [place], [id number], 02/09/2024 09:33:40 Patient TargetsNo targets recorded. Patient InstructionsNo instructions recorded. Reason for Referral None Reported. Results Created Date Observation Date Name Description Value Unit Range Abnormal Flag Note LastModifiedBy Organization Detail LastModifiedTime 02/12/20 24 02/08/2024 elect romyo gram + nerve condu ction study No observ ation record ed. [email or web address] Not Available 14:38:55 03/09/20 24 03/09/2024 US, extre mitaron duffyva scula r, limit ed No observ ation record ed. [address] [address], [place], [address], 03/11/2024 10:02:55 03/09/20 24 03/09/2024 US, extre debbie nonva scula r, limit ed No observ ation record ed. [address] [facility], [place], [address], 03/11/2024 10:02:56 03/09/20 24 03/09/2024 MRI, cervi andrew spine , w/o contr ast No observ ation record ed. [email or web address] [address], [place], [address], 03/11/2024 10:02:57 03/09/20 24 03/09/2024 MRI, cervi andrew spine , w/o contr ast No observ ation record ed. [address], [address], 03/11/2024 10:02:57 Result Notes None recorded. Problems Name Problem SNOMED Code Status Onset Date Resolution Date Notes Provider Name and Address Organization Details Recorded Time Tobacco user 182394193 Active Not Available [facility] 3 08:46:04 Gastroesop hageal reflux disease 226590144 Active Not Available [facility] 3 08:46:04 Gastropare sis syndrome 765441910 Active Not Available [facility] 3 08:46:04 Chong's esophagus 426022865 Active EGD 10/2015 EGD 1 Not Available [facility] 3 08:46:04 Bronchitis 27923841 Active Not Available [facility] 3 08:46:04 Hyperlipid emia 32795018 Active Not Available [facility] 3 08:46:04 Polyp of colon 45731584 Active last csc2015 Not Available [facility] 3 08:46:05 Unintentio nal weight loss 137177212 Active 2022 Jeimy Kathleen MD [address], [place], [address] , [email or web address] [facility] 3 12:43:49 Multiple joint pain 76552166 Active 2022 Jeimy Kathleen MD [address] [facility], [place], [address] , [employer] [facility] 3 12:44:39 Pain of left shoulder joint 597128051803 55547 Active 2022 Jeimy Kathleen MD [address], [place], [address] , [employer] [facility] 3 12:48:09 Degenerati on of cervical interverte bral disc 39167088 Active 2022 Jeimy Kathleen MD [address], [place], [address] , [employer] [facility] 3 12:48:41 Pain of bilateral hands 479301648614 73851 Active 2022 Jeimy Kathleen MD [address], [place], [address] , [employer] [facility] 3 12:49:08 Prediabete s 611279132 Active 2022 Jeimy Kathleen MD [address], [place], [address] , [employer] [facility] 3 09:05:05 Cervical spondylosi s 547721839 Active 2022 Jeimy Kathleen MD [address], [address], [place], [address] , [facility] [employer] [facility] 3 17:19:41 Large prostate 276845393 Active 2022 Jeimy Kathleen MD [address], [address], [place], [address] , [facility] [employer] [facility] [employer] [facility] 3 14:51:39 Solitary nodule of lung 921801294 Active 2022 Jeimy Kathleen MD [address], [address], [place], [address] , [facility] [employer] [facility] 3 14:51:55 Spinal stenosis in cervical region 09106016 Active 2023 MARGO Euceda [address], [address], [place], [address] , [facility] [employer] [facility] [employer] [facility] 4 12:30:25 Hematochez ia 756098271 Active 2023 MARGO Euceda [address], [address], [place], [address] , [facility] [employer] [facility] [employer] [facility] 4 12:32:19 Skin lesion 86461335 Active 2023 MARGO Euceda [address], [address], [place], [address] , [facility] [employer] [facility] [employer] [facility] 4 12:33:14 Acute urinary tract infection 590596637 Active 2023 INGE Garcia, [facility] 4 09:16:41 Benign prostatic hyperplasi a with outflow obstructio n 651255484 Active 2023 Jf Moore MD [address], [address], [place], [address] , [facility] [employer] [facility] [employer] [facility] 4 18:26:02 Dental abscess 862135794 Active 2023 MARGO Manuel [address], [address], [place], [address] , [employer] 4 12:28:56 Mixed anxiety and depressive disorder 639800590 Active 2023 MARGO Manuel [address] [facility], [address], [place], [address] , [employer] 4 11:17:10 Mass of upper limb 254883067 Active 2023 SCHUYLER Manuel-C [address] [facility], [address], [place], [address] , [employer] 4 11:25:21 Upper respirator y infection 78875895 Active 2023 MARGO Manuel [address], [address] [employer], [place], [address] , [employer] 4 11:08:34 Problem Notes None recorded. Procedures Surgical History Date Name Laterality Status Provider Name and Address Organization Details Recorded Time 12/21 Ortho - Cortisone Injection completed Moshe Fraser MD [address], [email or web address], [place], [address] , [employer] 3 23:53:13 04/24 esophagogastroduodenoscopy completed Not Available [facility] 3 08:43:31 08/07 esophagoscopy for biopsy completed Not Available [employer] 3 08:43:31 06/09 endoscopy of esophagus completed Not Available [facility] 3 08:43:31 11/17 Endoscopy completed Not Available [employer] 3 08:43:31 10/20 Colonoscopy completed Not Available [facility] 3 08:43:31 Gastrointestinal Surgery completed Not Available [facility] 3 08:43:31 Imaging Results None recorded. Procedure Notes None recorded. Medical Equipment None [...] 1 mL by injection route. 01/12 completed [facility]: [phone] [phone] Not Available Not Available [...] 4 mL by injection route. 01/12 completed [facility] [phone] -[phone]- [phone] Not Available Not Available Not Available Banophen 50 mg capsule TK 1 C PO Q 4 H PRN 03/20 completed Not Available Not Available Not Available Vitals Date Recorded Body height Body weight Body temperature Heart rate Oxygen saturation Oxygen saturation in Arterial blood by Pulse oximetry Systolic blood pressure Diastolic blood pressure Provider Name and Address Organization Details Last Updated DateTime 4 182.88 cm 44120.8 1 g 96.8 [degF] 92 /min 98 % 98 % 152 mm[Hg] 90 mm[Hg] Minnie Valdez RN [place] [facility] [place] [employer] 4 09:09:02 Social History Question Answer Notes LastModified by Organizat ion Details LastModified Time Tobacco Smoking Status Current Every Day Smoker Not Available [facility] 05/18/2022 08:43:28 What Is Your Level Of Alcohol Consumption? None [id number] Information not available 05/18/2022 What Is Your Level Of Caffeine Consumption? Moderate MIGRATION.[id number] Information not available 05/18/2022 How Much Tobacco Do You Chew? None MIGRATION.[id number] Information not available 05/18/2022 In The 14 Days Before Symptom Onset, Have You Had Close Contact With A Laboratory-confir med COVID-19 While That Case Was Ill? No MIGRATION.[id number] Information not available 05/18/2022 In The 14 Days Before Symptom Onset, Have You Had Close Contact With A Person Who Is Under Investigation For COVID-19 While That Person Was Ill? No MIGRATION.[id number] Information not available 05/18/2022 What Type Of Diet Are You Following? REGULAR MIGRATION.[id number] Information not available 05/18/2022 Which Illicit Or Recreational Drugs Have You Used? None MIGRATION.[id number] 8967 Information not available 05/18/2022 Do You Or Have You Ever Used E-cigarettes Or Vape? 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 08/30/2022 Information not available 08/30/2022 At What Age Did You Start Smoking Tobacco? 15 MIGRATION.[id number] 8282 Information not available 05/18/2022 Do You Or Have You Ever Used Smokeless Tobacco? Never Used Smokeless Tobacco MIGRATION.688002 6552 Information not available 05/18/2022 How Much Tobacco Do You Smoke? 1 PPD Information not available 08/30/2022 How Many Years Have You Smoked Tobacco? 30 MIGRATION.120032 6415 Information not available 05/18/2022 Sex: Unknown Functional Status Question Answer Note LastModified by Organizat ion Details LastModified Time What is your exercise level? Heavy [id number] Information not available 05/18/2022 Mental Status None recorded. Family History Relationship Description Onset Age of this Age Resolved Age Notes LastModified by Organization Details LastModified Time Mother Hypertensive disorder [id number] [id number] Not available 05/18/2022 08:43:33 Paternal Grandfather Cerebrovascu lar accident MIGRATION.507 [id number] Not available 05/18/2022 08:43:33 Paternal Uncle Malignant tumor of lung MIGRATION.288 [id number] Not available 05/18/2022 08:43:33 Paternal Grandmother Malignant tumor of colon MIGRATION.382 [id number] Not available 05/18/2022 08:43:33 Maternal Uncle Glaucoma MIGRATION.287 [id number] Not available 05/18/2022 08:43:33 Medical History Condition Response ARTHRITIS Y BOWEL PROBLEMS Y HEARTBURN / REFLUX Y Past Encounters Encounter ID Performer Location Encounter Start Date Encounter Closed Date Diagnosis/Indication Diagnosis SNOMED-CT Code Diagnosis ICD10 Code [id number] MARGO Manuel Christopher_G [facility] [address] [facility] [address] [place] [address] 02/09/2024 08:59:55 02/09/2024 09:39:25 Dental abscess 212370273 K04.7 Mixed anxi ety and depressive disorder 321859143 F41.8 Spinal markos nosis in cervical region 12256030 M48.02 Health Concerns Section Related Observation LastModified by Organization Yadiel ls LastModified Time None Recorded Concern Status LastModified by Organization Details LastModified Time None Recorded Payers Encounter Date Sequence Insurance Name Policy Number Policy Ernst Covered Member ID Ernst Member ID Guarantor Name 02/09/2024 1 [facility] - DOS ON OR AFTER 20 (MEDICAID REPLACEMENT - HMO) Dinesh Dover [id number] Dinesh Dover Notes Date Note Type Note Provider Name and Address Organization Details Recorded Time 02/09/2024 text/html Patient is a 54 year [...] about seeing a pain management doctor in [place] but has not set up an appointment yet. Patient had nerve conduction test completed yesterday, there were no conclusions made from the study other than it may or may not be a pinched nerve causing his hand to spasm but there was no definite triggered position. Patient reports right upper dental abscess that started last week. Patient went to the [facility] a couple weeks ago for previous abscess and had a couple teeth pulled. Patient is scheduled for his next appointment 03/07/24, he is only able to go once per month for an emergency visit. MARGO Manuel [address] [place] [address], [facility] [address], [place], [address], [facility] [employer] 02/09/2024 21:30:57
--- OUTSIDE RECORDS SUMMARY | 2024-03-16 15:23 | XMS_ITS | Continuity of Care Document ---
Author Organization [place] - [facility] [employer], [facility] Address [address] [place] [address] Assessment No assessment recorded. Plan of Treatment Reminders Order Date Submit Date Provider Last Modified By Organization Details Last Modified Time Details Appointments New Patient 15 2024 11:15A M Duane zacarias MD Not available Not available Not available Follow Up 30 2024 09:00A Beth Brewster NP Not available Not available Not available Lab None recorded. Referral pain managemen t referral - Please call patient to schedule an appointme nt. Thank you. 2023 [email or web address] Caitlin Cooper [employer]ICAL ENGINEERING MANAGER, [address] [place], [address], 02/05/2024 08:48:22 physical therapist referral 2023 [facility], [address], [place], [address], 01/05/2024 12:39:49 Procedures None recorded. Surgeries None recorded. Imaging US, extremity , nonvascul ar, limited - Mass on Left Forearm *Please call pt to schedule* [email or web address] [place] [address] ([facility]), [address] [place] [address], [address], 02/01/2024 08:58:28 Medication Orders hydrocodo ne 5 mg-acetam inophen 325 mg tablet 2023 [id number], [address] [place], [place], [id number], 01/02/2024 11:31:48 cyclobenz aprine 5 mg tablet 2023 [facility] #[id number], [address] [place], [place], [id number], 01/02/2024 11:31:40 alfuzosin ER 10 mg tablet,ex tended release 24 hr 2023 [facility] #12401, [address] [place] [address], [place], [id number], 01/02/2024 11:31:39 buspirone 5 mg tablet 2023 [email or web address] [facility]30, [address], [place], [id number], 02/09/2024 09:16:52 Patient TargetsNo targets recorded. Patient InstructionsNo instructions recorded. Reason for Referral Pain Management Referral for Degeneration of cervical intervertebral disc Please call patient to schedule an appointment. Thank you. Referring Physician: Helga Brewster [facility] Medicine, Encounter Date: 01/02/2024 Physical Therapist Referral for Degeneration of cervical intervertebral disc Referring Physician: Helga Brewster [facility], Encounter Date: 01/02/2024 Results Created Date Observation Date Name Description Value Unit Range Abnormal Flag Note LastModifiedBy Organization Detail LastModifiedTime 02/12/20 24 02/08/2024 elect romyo gram + nerve condu ction study No observ ation record ed. [email or web address] Not Available 14:38:55 03/09/20 24 03/09/2024 US, ben zavala scula r, limit ed No observ ation record ed. [email or web address] [facility] [address], [place], [address], 03/11/2024 10:02:55 03/09/20 24 03/09/2024 , ben zavala r, limit ed No observ ation record ed. [email or web address], [place], [address], 03/11/2024 10:02:56 03/09/20 24 03/09/2024 MRI, cervi andrew spine , w/o contr ast No observ ation record ed. [email or web address] [address], [place], [address], 03/11/2024 10:02:57 03/09/20 24 03/09/2024 MRI, cervi andrew spine , w/o contr ast No observ ation record ed. [email or web address] [address], [place], [address], 03/11/2024 10:02:57 Result Notes None recorded. Problems Name Problem SNOMED Code Status Onset Date Resolution Date Notes Provider Name and Address Organization Details Recorded Time Tobacco user 473366967 Active Not Available [facility] 3 08:46:04 Gastroesop hageal reflux disease 504048229 Active Not Available [facility] 3 08:46:04 Gastropare sis syndrome 443721874 Active Not Available [facility] 3 08:46:04 Chong's esophagus 223490688 Active EGD 10/2015 EGD 1 Not Available [facility] 3 08:46:04 Bronchitis 10835504 Active Not Available [facility] 3 08:46:04 Hyperlipid emia 47146294 Active Not Available [facility] 3 08:46:04 Polyp of colon 57283170 Active last csc2015 Not Available [facility] 3 08:46:05 Unintentio nal weight loss 280027251 Active 2022 Jeimy Kathleen MD [address] [place] [address], [facility] [address], [place], [address] , [place] [facility] 3 12:43:49 Multiple joint pain 53180908 Active 2022 Jeimy Kathleen MD [address], [place], [address] , [place] [facility] 3 12:44:39 Pain of left shoulder joint 523726373095 21612 Active 2022 Jeimy Kathleen MD [address], [place], [address] , [facility] [place] [facility] 3 12:48:09 Degenerati on of cervical interverte bral disc 62868266 Active 2022 Jeimy Kathleen MD [address], [place], [address] , [facility] [place] [facility] 3 12:48:41 Pain of bilateral hands 265861054244 Active 2022 Jeimy Kathleen MD [address], [place], [address] , [facility] - [facility] 3 12:49:08 Prediabete s 618175014 Active 2022 Jeimy Kathleen MD [address], [place], [address] , [facility] - [facility] 3 09:05:05 Cervical spondylosi s 127197006 Active 2022 Jeimy Kathleen MD [address], [place], [address] , [facility] - [facility] 3 17:19:41 Large prostate 420940641 Active 2022 Jeimy Kathleen MD [address], [place], [address] , [facility] [place] [facility] 3 14:51:39 Solitary nodule of lung 970213695 Active 2022 Jeimy Kathleen MD [address], [place], [address] , [facility] 3 14:51:55 Spinal stenosis in cervical region 38260183 Active 2023 MARGO Euceda [address], [place], [address] , [facility] 4 12:30:25 Hematochez ia 244382624 Active 2023 MARGO Euceda [address], [place], [address] , [facility] 4 12:32:19 Skin lesion 49443244 Active 2023 MARGO Euceda [address], [place], [address] , [facility] 4 12:33:14 Acute urinary tract infection 737522319 Active 2023 INGE Garcia, [facility] 4 09:16:41 Benign prostatic hyperplasi a with outflow obstructio n 246812337 Active 2023 Jf Moore MD [address], [place], [address] , [facility] 4 18:26:02 Dental abscess 484022679 Active 2023 MARGO Manuel [address], [place], [address] , [facility] 4 12:28:56 Mixed anxiety and depressive disorder 312172704 Active 2023 MARGO Manuel [address], [place], [address] , [facility] 4 11:17:10 Mass of upper limb 870691094 Active 2023 MARGO Manuel [address], [place], [address] , [place] [facility] 4 11:25:21 Upper respirator y infection 93819272 Active 2023 MARGO Manuel [address] [place] [address], [place], [address] , [facility] 4 11:08:34 Problem Notes None recorded. Procedures Surgical History Date Name Laterality Status Provider Name and Address Organization Details Recorded Time 12/21 Ortho - Cortisone Injection completed Moshe Fraser MD [address], [facility] [address], [place], [address] , [facility] 3 23:53:13 04/24 esophagogastroduodenoscopy completed Not Available [facility] 3 08:43:31 08/07 esophagoscopy for biopsy completed Not Available [facility] 3 08:43:31 06/09 endoscopy of esophagus completed Not Available [facility] 3 08:43:31 11/17 Endoscopy completed Not Available [facility] 3 08:43:31 10/20 Colonoscopy completed Not Available [facility] 3 08:43:31 Gastrointestinal Surgery completed Not Available [facility] 3 08:43:31 Imaging Results None recorded. Procedure [...] 1 mL by injection route. 01/12 completed [facility]: 0003- 0494- 20 Not Available Not Available [...] 4 mL by injection route. 01/12 completed [facility] [id number] -[id number] 01 Not Available Not Available Not Available Banophen 50 mg capsule TK 1 C PO Q 4 H PRN 03/20 completed Not Available Not Available Not Available Vitals Date Recorded Body height Body mass index (BMI) Body weight Body temperature Heart rate Oxygen saturation Oxygen saturation in Arterial blood by Pulse oximetry Systolic blood pressure Diastolic blood pressure Provider Name and Address Organization Details Last Updated DateTime 4 182.88 cm 24.5 kg/m2 05906.2 2 g 98.1 [degF] 79 /min 99 % 99 % 158 mm[Hg] 90 mm[Hg] Andria Aguilar RN [place] [facility] 4 11:02:12 Social History Question Answer Notes LastModified by Organizat ion Details LastModified Time Tobacco Smoking Status Current Every Day Smoker Not Available [facility] 05/18/2022 08:43:28 What Is Your Level Of Alcohol Consumption? None [id number] Information not available 05/18/2022 What Is Your Level Of Caffeine Consumption? Moderate [id number].[id number] Information not available 05/18/2022 How Much Tobacco Do You Chew? None MIGRATION.627186 0807 Information not available 05/18/2022 In The 14 Days Before Symptom Onset, Have You Had Close Contact With A Laboratory-confir med COVID-19 While That Case Was Ill? No MIGRATION.[id number] Information not available 05/18/2022 In The 14 Days Before Symptom Onset, Have You Had Close Contact With A Person Who Is Under Investigation For COVID-19 While That Person Was Ill? No MIGRATION.[id number] [id number] Information not available 05/18/2022 What Type Of Diet Are You Following? REGULAR MIGRATION.261665 2054 Information not available 05/18/2022 Which Illicit Or Recreational Drugs Have You Used? None MIGRATION.856132 3000 Information not available 05/18/2022 Do You Or Have You Ever Used E-cigarettes Or Vape? 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 08/30/2022 Information not available 08/30/2022 At What Age Did You Start Smoking Tobacco? 15 MIGRATION.231438 9135 Information not available 05/18/2022 Do You Or Have You Ever Used Smokeless Tobacco? Never Used Smokeless Tobacco MIGRATION.361842 4574 Information not available 05/18/2022 How Much Tobacco Do You Smoke? 1 PPD Information not available 08/30/2022 How Many Years Have You Smoked Tobacco? 30 MIGRATION.725681 0296 Information not available 05/18/2022 Sex: Unknown Functional Status Question Answer Note LastModified by Organizat ion Details LastModified Time What is your exercise level? Heavy [id number].[id number] Information not available 05/18/2022 Mental Status None recorded. Family History Relationship Description Onset Age of this Age Resolved Age Notes LastModified by Organization Details LastModified Time Mother Hypertensive disorder MIGRATION.292 [id number] Not available 05/18/2022 08:43:33 Paternal Grandfather Cerebrovascu lar accident MIGRATION.719 [id number] Not available 05/18/2022 08:43:33 Paternal Uncle Malignant tumor of lung MIGRATION.619 [id number] Not available 05/18/2022 08:43:33 Paternal Grandmother Malignant tumor of colon MIGRATION.008 [id number] Not available 05/18/2022 08:43:33 Maternal Uncle Glaucoma MIGRATION.103 [id number] Not available 05/18/2022 08:43:33 Medical History Condition Response ARTHRITIS Y BOWEL PROBLEMS Y HEARTBURN / REFLUX Y Past Encounters Encounter ID Performer Location Encounter Start Date Encounter Closed Date Diagnosis/Indication Diagnosis SNOMED-CT Code Diagnosis ICD10 Code [id number] MARGO Manuel [facility] [address] [place] [address] 01/02/2024 10:56:52 01/02/2024 11:44:27 Degeneration of cervical intervertebral disc 60488195 M50.30 Mixed anxi ety and depressive disorder 611139432 F41.8 Benign pro static hyperplasia with outflow obstruction 700067380 N40.1 Mass of upper limb 14343 5008 R22.30 Health Concerns Section Related Observation LastModified by Organization Detai ls LastModified Time None Recorded Concern Status LastModified by Organization Details LastModified Time None Recorded Payers Encounter Date Sequence Insurance Name Policy Number Policy Ernst Covered Member ID Ernst Member ID Guarantor Name 01/02/2024 1 [place] [facility] Dinesh Dover [id number] Dinesh Dover Notes Date Note Type Note Provider Name and Address Organization Details Recorded Time 01/02/2024 text/html Patient is a 53 year old male that presents to the office ambulatory with cane. Patient reports over the last month he has started to use the cane. He uses it to aid in transitioning from a sitting to standing or standing to sitting position rather than for walking/balance issues. Patient followed up with neurologist at [facility] however it did not go well. Patient [...] his disability to be approved by the state. Patient denies any previous treatment for anxiety [...] like to have it taken care of. Helga Brewster, GOVERNMENT AFFAIRS DIRECTOR-C [address] [facility], [facility] [address], [place], [address], [place] [facility] 01/02/2024 23:27:57
== END 2024-03-09 11:00 | disposition home or self-care (01) ==
PROVIDERS: PCP Family Medicine; Visit Provider Nurse Practitioner Family
DX: R22.32 Localized swelling, mass and lump, left upper limb (principal); M48.02 Spinal stenosis, cervical region; M43.02 Spondylolysis, cervical region
CPT/HCPCS: 72141; 76882